=== PATIENT | male | born 1960 | race African-American/Black ===

== ENCOUNTER 2018-06-20 05:43 | Inpatient (IN) | payer OTHER ==
[2018-06-20] VITALS (30 sets, daily range): BP systolic 86–112; BP diastolic 48–79
[~2018-06-20] VITALS: Ht 182.9 cm; Wt 90.9 kg
--- NOTE | ~2018-06-20 | EKG ---
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 : 1960 Requested By: Latrice Dawn Order Number: [id number] MD: Measurements Intervals [place] Rate: 70 P: ID: QRS: 39 QRSD: 139 T: 133 QT: 401 QTc: 433 Interpretive Statements Atrial fibrillation IVCD, consider atypical RBBB Nonspecific T abnormalities, lateral leads Minimal ST elevation, inferior leads No previous ECG available for comparison [email or web address] ��������������������������������������������� ���������������������������������������� By: ��������������������������������������������� 9 9 Epiphany MD Candi /EPI
--- NOTE | ~2018-06-20 | HC ---
[facility] [place] [address] CONSULTATION Name: LUIS ARMANDO DAVIES Room #: 247-P ADM IN M.R.#: [id number] Admission: 06/20/18 ������������������ Attend Phys: Philip Wilson Discharge: ������������������ Date of : 60 Report #: [id number] THIS REPORT FOR: //name// CC: Philip Whtiaker PULMONARY CONSULTATION REFERRAL PHYSICIAN: Dr. Wilson. REASON FOR REFERRAL: Sepsis. HISTORY OF PRESENT ILLNESS: The patient is a 58-year-old -Israeli male who was brought to the ED from a shelter. He resides at a [facility], I believe, at [facility]. The patient is not verbal. Most of the history is obtained from the chart. The patient apparently has a history of CVA some time ago. He has been in a shelter. He has been rather sedentary. He was in his usual state of health until a day prior to presentation, the patient was found to be febrile, hypotensive and diaphoretic with abdominal distention. His temperature was around 100 degrees Fahrenheit. He was brought to the Emergency Room. In the ER, blood pressure was 86 mmHg systolic. The patient was subsequently admitted to the ICU with sepsis protocol. At this time, the patient appears to be somnolent, sleeping. He also has obvious obstructive apnea. He is arousable, but unable to give much history. PAST MEDICAL HISTORY: As mentioned above, including history of CVA, cognitive impairment, chronic kidney disease, debility and weakness. He appears to have chronic fatigue, hypersomnia being on armodafinil. Past medical history was incomplete at this time, without any prior records. PAST SURGICAL HISTORY: Unknown. MEDICATIONS: Reported medications include armodafinil, Lasix, mirtazapine, Singulair, potassium supplements, thiamine, Lipitor, bromocriptine, Coreg, Precedex, clonidine, Neurontin, Keppra and DuoNebs. FAMILY HISTORY: Unknown. ALLERGIES: None noted. [facility] [address] [place] [address] CONSULTATION Name: LUIS ARMANDO DAVIES Room #: [address] [place] [address] IN M.R.#: [id number] Admission: 06/20/18 ������������������ Attend Phys: Philip Wilson Discharge: ������������������ Date of : 60 Report #: [id number] SOCIAL HISTORY: He resides at a shelter. No prior history of tobacco or alcohol use. REVIEW OF SYSTEMS: Deferred as the patient is unable to give much history. PHYSICAL EXAMINATION: GENERAL: On exam, he is awake, appears somnolent, snoring and occasionally apneic spells. VITAL SIGNS: Temperature is 99 degrees Fahrenheit; it was at 100.5 degrees Fahrenheit. Pulse is 20; respiratory rate is 20; blood pressure has been as low as 79 mmHg systolic; currently is 90 mmHg systolic and saturation 97%. HEENT: Normocephalic, atraumatic. NECK: Supple, without any lymphadenopathy or thyromegaly. CHEST: Breath sounds are fair due to poor effort. CARDIOVASCULAR: Normal S1, S2. No murmurs or gallops. Pulses are decreased bilaterally. ABDOMEN: Soft, nontender. No organomegaly or masses felt. GENITOURINARY: Deferred. RECTAL: Deferred. EXTREMITIES: There is no edema, cyanosis or clubbing. NEUROLOGICAL EXAMINATION: Deferred, but baseline. The patient appears to mumble, but does not converse according to history. He also apparently has been bedridden for some time following his CVA. LABORATORY DATA: Portable chest x-ray shows mild increase in right lower lobe infiltrates, questionable small right-sided pleural effusion, mild increase in pulmonary vascular markings. Lactic acid is 1.3. Influenza A and B swab is negative. U/A was grossly unremarkable. EKG shows atrial flutter. KUB shows moderate stool in the colon. Procalcitonin level is 0.2. Electrolytes are normal. Liver enzymes unremarkable. WBC 17,500, hemoglobin 12.2 and platelets are normal. No evidence of bandemia. Arterial blood gas revealed pH of 7.40, pCO2 of 34 and pO2 of 74 on 4 liters of O2. IMPRESSION: 1. Severe sepsis with hypotension, febrile illness in this 58-year-old -Israeli male. He resides in a shelter. Source of infection at this time remains unclear, though need to consider possible pneumonia, aspiration, urinary tract infection, intra-abdominal source. 2. Acute hypoxic respiratory failure secondary to severe sepsis with hypotension, febrile illness. He also has apneic spells which may be related to sleep-related breathing disorder. This will need to be addressed later when the patient is stable and if able as an outpatient. 3. Apparent history of cerebrovascular accident with neurologic deficits. The patient apparently has been bedridden. 4. Incomplete history, but medication list suggests history of hypertension, heart failure, chronic hypersomnia, benign prostatic hypertrophy, questionable [facility] [address] [place] [address] CONSULTATION Name: LUIS ARMANDO DAVIES Room #: 247-P ADM IN M.R.#: [id number] Admission: 06/20/18 ������������������ Attend Phys: Philip Mao Inesjax Discharge: ������������������ Date of : 60 Report #: [id number] history of alcohol abuse and other neurologic disorders. Would recommend obtaining records for review and to verify. RECOMMENDATIONS: I agree with sepsis protocol, broad-spectrum antibiotics, vasopressors, IV fluids as necessary. DVT and GI prophylaxis recommended. Thank you for this consultation. ��������������������������������������������� ���������������������������������������� By: ��������������������������������������������� 1937 0227 Ash Malave MD /lee
[2018-06-20 06:05] LABS: ABSOLUTE NEUTROPHILS 14.7 thou/uL (1.4-8.2); BASOPHILS 0.5 % (0.0-2.0); EOSINOPHILS 0.1 % (0.0-3.0); HEMATOCRIT 36.3 % (42.0-52.0); HEMOGLOBIN 12.2 gm/dL (14.0-18.0); LYMPHOCYTES 8.2 % (24.0-44.0); MCH 27.9 pg (26.0-34.0); MCHC 33.5 g/dL (28.0-37.0); MCV 83.1 fL (80.0-100.0); PLATELET COUNT 291 thou/uL (150-400); POLYS 84.2 % (36.0-66.0); RBC 4.37 mil/uL (4.50-6.00); RDW 14.9 % (10.5-14.5); WBC 17.5 thou/uL (4.0-11.0)
[2018-06-20 06:14] LABS: ANION GAP 9 mmol/L (7-16); BUN 18 mg/dL (7-18); CALCIUM 9.1 mg/dL (8.5-10.1); CHLORIDE 102 mmol/L (98-107); CO2 29 mmol/L (21-32); CREATININE 0.9 mg/dL (0.7-1.3); GLUCOSE 141 mg/dL (74-106); POTASSIUM 4.4 mmol/L (3.5-5.1); SODIUM 140 mmol/L (136-145)
[2018-06-20 06:22] LABS: ALBUMIN 2.6 g/dL (3.4-5.0); SGOT 29 U/L (15-37); SGPT 34 U/L (30-65); TOTAL BILIRUBIN 0.6 mg/dL (<0.1-1.0); TOTAL PROTEIN 7.5 g/dL (6.4-8.2); TROPONIN-I <0.06 ng/mL (<0.06)
--- NOTE | 2018-06-20 07:24 | NUR ---
ERP UPDATED THAT PER TRIAGE NOTE PT HAD A DOSE OF TYLENOL QUALITY CONTROL TESTER. ATTEMPT X1 TO [facility] [phone] FOR LAST DOSE TIME, NO ANSWER AT THIS TIME.
[2018-06-20] MEDS ORDERED: ARMODAFINIL150 MG PER TUBE (08:13)
[2018-06-20] MEDS ORDERED: LASIX 20 MG TAB20 MG PER TUBE (08:13)
[2018-06-20] MEDS ORDERED: MIRTAZAPINE7.5 MG PER TUBE (08:14)
[2018-06-20] MEDS ORDERED: SINGULAIR 10 MG10 M1 PER TUBE ×2 (08:14→08:17)
[2018-06-20] MEDS ORDERED: ZOFRAN4 MG PER TUBE (08:14)
[2018-06-20] MEDS ORDERED: TERAZOSIN HCL5 MG PER TUBE (08:18)
[2018-06-20] MEDS ORDERED: CENTRUM MU9 MG/15 ML PER TUBE (08:18)
[2018-06-20] MEDS ORDERED: KLOR-CON 1010 MEQ PER TUBE (08:18)
[2018-06-20] MEDS ORDERED: VITAMIN B-1100 M1 PER TUBE (08:19)
[2018-06-20] MEDS ORDERED: LIPITOR 20 MG T20 M1 PER TUBE (08:19)
[2018-06-20] MEDS ORDERED: BROMOCRIPTINE2.5 M1 PER TUBE (08:20)
[2018-06-20] MEDS ORDERED: CARVEDILOL12.5 MG PER TUBE (08:20)
[2018-06-20] MEDS ORDERED: PERIDEX15 ML SWISH&SPIT (08:21)
[2018-06-20] MEDS ORDERED: CLONIDINE0.1 PER TUBE (08:22)
[2018-06-20] MEDS ORDERED: GABAPENTIN 100100 MG PER TUBE (08:22)
[2018-06-20] MEDS ORDERED: CARDIZEM60 MG PER TUBE (08:22)
[2018-06-20] MEDS ORDERED: KEPPRA 500 MG500 M1 PER TUBE (08:23)
[2018-06-20] MEDS ORDERED: TOPROL XL25 MG PER TUBE (08:23)
[2018-06-20] MEDS ORDERED: TYLENOL325 MG PER TUBE (08:24)
[2018-06-20] MEDS ORDERED: BISCOLAX10 MG RECTAL (08:24)
[2018-06-20] MEDS ORDERED: IPRAT-ALBUT 0.5-3 ML INH (08:25)
[2018-06-20 09:11] LABS: APTT 27.5 Seconds (24.5-32.8); FIBRINOGEN 318.5 mg/dL (210-360); INR 1.1; PROTIME 11.6 Seconds (9.3-11.4)
[2018-06-20 09:26] LABS: BE(vivo) -1.8 mmol/L (-2 to +3); HCO3 22.1 mmol/L (22.0-26.0); PCO2 34.9 mmHg (35.0-45.0); PO2 74.4 mmHg (80.0-100.0); sO2 95.3 % (92.0-98.0)
[2018-06-20 10:33] LABS: CALCIUM 8.2 mg/dL (8.5-10.1); CREATININE 0.8 mg/dL (0.7-1.3); POTASSIUM 3.5 mmol/L (3.5-5.1)
[2018-06-20 10:37] LABS: ALBUMIN 2.3 g/dL (3.4-5.0); TOTAL BILIRUBIN 0.5 mg/dL (<0.1-1.0); TOTAL PROTEIN 6.6 g/dL (6.4-8.2)
[2018-06-20 10:57] LABS: URINE BILIRUBIN NEGATIVE (Negative); URINE BLOOD NEGATIVE (Negative); URINE CLARITY CLEAR; URINE COLOR YELLOW; URINE GLUCOSE-RANDOM* NEGATIVE (Negative); URINE KETONES NEGATIVE (Negative); URINE LEUKOCYTES-REFLEX NEGATIVE (Negative); URINE NITRITE-REFLEX NEGATIVE (Negative); URINE PROTEIN (DIPSTICK) NEGATIVE (Negative); URINE SPECIFIC GRAVITY <= 1.005 (1.005-1.035)
--- NOTE | 2018-06-20 17:03 | EKG ---
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 : 1960 Requested By: Brock Dodd Order Number: [id number] MD: Kishan Joseph Measurements Intervals [place] Rate: 70 P: PA: QRS: 39 QRSD: 139 T: 133 QT: 401 QTc: 433 Interpretive Statements Atrial flutter Nonspecific T wave abnormality No previous ECG available for comparison Electronically Signed On 06-20-2018 17:03:36 CDT by Kishan Joseph [email or web address] ��������������������������������������������� <ELECTRONICALLY SIGNED> ���������������������������������������� By: Kishan Joseph MD, [facility] ��������������������������������������������� 06/20/18 1703 0620 9 Kishan Joseph MD, FACC /EPI
--- NOTE | 2018-06-20 17:20 | NUR ---
NOTIFIED TO PLACE A PICC FOR A PATIENT IN ICU. ORDER AND CONSENT NOTED. 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 THE RIGHT UPPER ARM BASILIC WAS WIDLEY PATENT. A #5F TRIPLE LUMEN POWER PICC WAS PLACED PER POLICY AFTER A BEDSIDE TIMEOUT WAS COMPLTETE. PICC WAS TRIMMED TO 46CM AND ADVANCED WITHOUT DIFFICULTY. PICC WAS EXTERNAL 5CM. A STAT CHEST XRAY WAS DONE STAT AND CONFIRMED BY THE RADIOLOGIST TO BE IN GOOD POSITION. LINE RELEASED FOR USE
--- NOTE | 2018-06-20 19:29 | NUR ---
ASSUMED CARE OF PT. UPON ARRIVAL FROM ED. PT. IS DROWSY AND CANNOT FULLY ANSWER QUESTIONS. LEFT SIDED WEAKNESS DUE TO HX OF CVAs. PT. STARTED ON CARDIZEM DRIP FOR CONTINUED AFIB/AFLUTTER PER PHYSICIAN ORDER. SEPSIS PROTOCOL CONTINUED, AND PICC LINE WAS INSERTED. PT. TOLERATED PROCEDURE. ALL ASSESSMENTS AND VITAL SIGNS CHARTED. ALL MEDICATION TITRATIONS CHARTED. PT. CONTINUES TO GRADUALLY BECOME LESS SLEEPY AND MORE AWARE. POC IS TO KEEP PT. HEMODYNAMICALLY STABLE AND MONITOR FOR WORSENING SIGNS OF SEPSIS. WILL CONTINUE TO MONITOR.
--- NOTE | 2018-06-20 20:48 | NUR ---
[facility] 14. FORGETFUL TO MILD CONFUSION. COGNITIVE DEFICIT R/T VERBAL COMMUNICATION. SLOW SPEECH, DIFFICULT TO UNDERSTAND AT TIMES. GENERALIZED WEAKNESS. LEFT SIDE WEAKER THAN RUGHT D/T PREVIOUS CVA. ALFUTTER. CARDIZEM GTT. LUNGS COARSE TO AUSCULATATION. 2L O2 PER NC. THIS IS THE PT'S O2 BASELINE. GARCIA TO DD. ADEQUATE URINE OUTPUT. NPO. MEDS PER PEG TUBE. VITAL SIGNS AND ASSESSMENTS DOCUMENTED. WILL CONTINUE TO MONITOR.
[2018-06-21] VITALS (30 sets, daily range): BP systolic 102–138; BP diastolic 68–85
[2018-06-21 04:55] LABS: CALCIUM 8.4 mg/dL (8.5-10.1); CREATININE 0.6 mg/dL (0.7-1.3); POTASSIUM 3.4 mmol/L (3.5-5.1)
[2018-06-21 04:57] LABS: ABSOLUTE NEUTROPHILS 10.5 thou/uL (1.4-8.2); BASOPHILS 0.4 % (0.0-2.0); EOSINOPHILS 0.7 % (0.0-3.0); HEMATOCRIT 35.3 % (42.0-52.0); HEMOGLOBIN 11.7 gm/dL (14.0-18.0); LYMPHOCYTES 20.1 % (24.0-44.0); MCH 27.8 pg (26.0-34.0); MCHC 33.1 g/dL (28.0-37.0); MONOCYTES 6.7 % (1.0-8.0); PLATELET COUNT 257 thou/uL (150-400); POLYS 72.1 % (36.0-66.0); RDW 15.4 % (10.5-14.5); WBC 14.6 thou/uL (4.0-11.0)
--- NOTE | 2018-06-21 08:54 | 2DMMODE ---
[facility] [address] [place] [address] 2 D/M-MODE ECHOCARDIOGRAM Name: LUIS ARMANDO DAVIES Room #: 247-P ADM IN M.R.#: [id number] ������������� Admission: 06/20/18 ������������� Attend Phys: Philip Chacon Discharge: ��� ������������� ��� Date of : 60 Date of Service: 06/21/18 0853 �� Report #: [id number] �������� ��������������������������������������������[id number] THIS REPORT FOR: //name// APPROVED REPORT Study performed: 06/21/2018 08:20:42 EXAM: Comprehensive 2D, Doppler, and color-flow Echocardiogram Patient Location: ICU Room #: [facility] Status: routine BSA: 2.16 HR: 85 bpm BP: 120/91 mmHg Rhythm: Atrial Flutter Other Information Study Quality: Technically Limited/No parasternal window. Indications Congestive Heart Failure Aflutter, Sepsis. 2D Dimensions RVDd: 41.34 mm IVSd: 14.24 (7-11mm) LVOT Diam: 20.94 (18-24mm) LVDd: 46.38 mm PWd: 11.62 (7-11mm) LVDs: 31.91 (25-40mm) Aortic Root: 35.28 mm Volumes Left Atrial Volume (Systole) Single Plane 4CH: 59.03 mL Single Plane 2CH: 49.21 mL LA ESV Index: 27.00 mL/m2 Aortic Valve AoV Peak Miles.: 1.41 m/s AO Peak Gr.: 7.96 mmHg LVOT Max P.01 mmHg LVOT Max V: 1.00 m/s NICOLE Vmax: 2.45 cm2 Mitral Valve MV Decel. Time: 120.34 ms [facility] [address] [place] [address] 2 D/M-MODE ECHOCARDIOGRAM Name: LUIS ARMANDO DAVIES Room #: 247-P [facility] IN ..#: [id number] ������������� Admission: 06/20/18 ������������� Attend Phys: Philip Chacon Discharge: ��� ������������� ��� Date of : 60 Date of Service: 06/21/18 0853 �� Report #: [id number] �������� ��������������������������������������������[id number] E Max Miles.: 1.07 m/s Pulmonary Valve PV Peak Miles.: 1.08 m/s PV Peak Gr.: 4.67 mmHg Tricuspid Valve TR Peak Miles.: 2.57 m/s RAP Estimate: 5.00 mmHg TR Peak Gr.: 26.34 mmHg PA Pressure: 31.00 mmHg Left Ventricle The left ventricle is normal size. There is normal LV segmental wall motion. Mild concentric left ventricular hypertrophy. Left ventricular systolic function is normal. LVEF is 60-65%. This study is not technically sufficient to allow evaluation of the LV diastolic function. Right Ventricle The right ventricle is normal size. The right ventricular systolic function is normal. Atria The left atrium size is normal. The right atrium size is normal. Aortic Valve Aortic valve leaflets are mildly thickened and calcified. Trace to mild aortic regurgitation. There is no aortic valvular stenosis. Mitral Valve The mitral valve is normal in structure. Mild mitral regurgitation. Tricuspid Valve The tricuspid valve is normal in structure. Mild tricuspid regurgitation. Estimated PAP is 30-35mmHg. Pulmonic Valve There is no pulmonic valvular regurgitation. Great Vessels The aortic root is normal in size. Ascending aorta is not well visualized. IVC is normal in size and collapses >50% with inspiration. [facility] [address] [place] [address] 2 D/M-MODE ECHOCARDIOGRAM Name: LUIS ARMANDO DAVIES Room #: [facility] IN M.R.#: [id number] ������������� Admission: 06/20/18 ������������� Attend Phys: Philip Chacon Discharge: ��� ������������� ��� Date of : 60 Date of Service: 06/21/18 0853 �� Report #: [id number] �������� ��������������������������������������������[id number] Pericardium There is no pericardial effusion. <Conclusion> Limited study Left ventricular systolic function is normal. There is normal LV segmental wall motion. LVEF 60-65%. Aortic valve leaflets are mildly thickened and calcified. Trace to mild aortic regurgitation. The mitral valve is normal in structure. Mild mitral regurgitation. Mild tricuspid regurgitation. Estimated pulmonary artery pressure of 30-35mmHg. There is no pericardial effusion. ��������������������������������������������� <ELECTRONICALLY SIGNED> ���������������������������������������� By: Kishan Joseph MD, [facility] ��������������������������������������������� 06/21/18 0853 0853 0853 Kishan Joseph MD, FACC /INF
--- NOTE | 2018-06-21 09:58 | NUR ---
Nutrition: If pt remains NPO rec enteral feedings of Glucerna 1.2 at 80 mL/hr x 24 hrs to meet needs.
--- NOTE | 2018-06-21 15:06 | HC ---
[facility] [place] [address] [address] [place] [address] CONSULTATION Name: LUIS ARMANDO DAVIES Room #: 247-P ADM IN M.R.#: [id number] Admission: 06/20/18 ������������������ Attend Phys: Philip Wilson Discharge: ������������������ Date of : 60 Report #: [id number] THIS REPORT FOR: //name// CC: Philip Renteriam Akkulugari DATE OF SERVICE: 06/20/2018 INFECTIOUS DISEASES CONSULTATION REASON FOR CONSULTATION: I was asked to evaluate concerning septic shock. HISTORY OF PRESENT ILLNESS: The patient is a 58-year-old [facility] resident at [facility] who presents with fever, hypotension, diaphoresis, abdominal distention. Details of his premorbid state prior to this hospitalization is not clear. I discussed with nurses at the bedside. There were no other family members in attendance. The patient was unable to give any details. He has had temperature up to 39 degrees. He has received 4 liters of IV fluids to get his blood pressure above 100 systolic. He is in atrial flutter, now with a rate of 120. He is being treated in the Intensive Care Unit now by Internal Medicine. He has had minimal cough or sputum production. No reported nausea, vomiting or diarrhea. His PEG tube is now to suction. He has had bilious colored fluid in the drain. He now has an indwelling Gibson catheter with reasonable urine output. He has had no rashes or decubiti. He has had a previous stroke with left-sided weakness. REVIEW OF SYSTEMS: A 10-point review of systems is negative other than what is described above. ALLERGIES: None known. MEDICATIONS: As noted on his MAR, which were reviewed. PAST MEDICAL HISTORY: Kidney failure, muscle weakness, cognitive defects following stroke, dysphagia with a PEG tube. FAMILY HISTORY: Noncontributory. SOCIAL HISTORY: Unclear if he smoked or drank much alcohol. Now a [facility] resident. REVIEW OF SYSTEMS: As noted above. PHYSICAL EXAMINATION: VITAL SIGNS: Early this morning, his temperature was 39.1, now afebrile; blood pressure 100/60; heart rate 120; O2 nasal cannula at 4 liters. [facility] [address] [place] [address] CONSULTATION Name: LUIS ARMANDO DAVIES Room #: 247-P [facility] IN M.R.#: [id number] Admission: 06/20/18 ������������������ Attend Phys: Philip Wilson Discharge: ������������������ Date of : 60 Report #: [id number] SKIN: With callus and eschar lesion to his left heel. No surrounding erythema or fluctuance. HEENT: Eyes are without scleral icterus. Pupils are equal, round and reactive to light. Mouth without mucositis. NECK: Supple. LUNGS: Crackles in the right base posteriorly. HEART: Regular, tachycardic. No appreciable murmur, gallop or rub. ABDOMEN: Mildly distended. His PEG site was without drainage. There is no fluctuance. No hepatosplenomegaly or mass appreciated. GENITOURINARY: External genitalia unremarkable with no lesion or mass, has an indwelling Gibson catheter. RECTAL: Not performed. EXTREMITIES: Without clubbing, cyanosis or edema. He did move all of his extremities. Cranial nerves are intact. He would arouse, but not verbal. LABORATORY DATA: Creatinine 0.8. Liver function tests normal. Bicarb at 28. Urinalysis unremarkable. Hemoglobin 12; platelet count 291,000; WBC 17.5. Lactate 1.8. Procalcitonin 0.25. Chest x-ray, right lower lobe infiltrate. Urinalysis was unremarkable. Influenza antigen negative. IMPRESSION: A 58-year-old [facility] resident, presents with septic shock, right lower lobe pulmonary infiltrate, leukocytosis, atrial flutter. No evidence of urinary tract infection. Aspiration, healthcare-associated pneumonia seems most likely. He does have abdominal distention, etiology of this is yet not clear, although his abdomen was mildly distended. It does not appear tender. Previous stroke, encephalopathy. RECOMMENDATION: We will continue with broad antibiotic coverage including vancomycin, Levaquin, Zosyn. Check sputum sample if possible. Await blood cultures. Check urine antigen, viral respiratory panel for ICU support. Cardiac treatments for atrial flutter. ��������������������������������������������� <ELECTRONICALLY SIGNED> ���������������������������������������� By: Dimitri Glynn MD ��������������������������������������������� 06/21/18 1506 1316 [id number] Dimitri Glynn MD /nt
--- NOTE | 2018-06-21 19:19 | NUR ---
ASSUMED CARE OF PT. AT 0700. PT. IS AWAKE AND FORGETFUL. PT. DENIES PAIN. ASSESSMENTS AND VITALS CHARTED. SPEECH EVALUATION COMPLETED TODAY, PT. STILL NPO. PT. REMAINS ON CARDIZEM AT 15 MG. PT. REMAINS HEMODYNAMICALLY STABLE AND READY TO TRANSFER OUT OF ICU PER PHYSICIAN ORDER. PT. TRANSFERRED OUT OF ICU AT 1630. ALL BELONGINGS TRANSFERRED WITH PT. AND REPORT WAS GIVEN TO LENA VIRAMONTES RN.
--- NOTE | 2018-06-21 19:24 | NUR ---
PT. FAMILY CONTACTED AT 1700 ABOUT TRANSFER OUT OF ICU TO CCU. ROSE MARIE (BROTHER) WAS ALSO UPDATED ON POC. INFORMATION ON HOW TO REACH PT. ON NEW UNIT GIVEN.
--- NOTE | 2018-06-21 19:36 | NUR ---
ASSUMED CARE OF PT AT 1645. PT WAS ALERT AND ABLE TO STATE NAME AND BIRTHDATE. PT SPEAKS WITH HESITATION AND MUMBLED. PT WEAK ON LEFT SIDE (DUE TO CVA). VITALS WNL AND PT AFLUTTER IN 80s ON 15MG/HOUR CARDIZEM DRIP. PT DOES NOT HAVE CARDIOLOGY CONSULT. PT HAS PEG TUBE BUT NOT TUBE FEEDING ORDERS AT THIS TIME. PT DENIED PAIN. MOUTH CARE AND FOOT CARE DONE. PT ON Q2 TURNS
--- NOTE | 2018-06-21 19:56 | NUR ---
19:48>called answering service of Dr Juanis Glynn 19:55>Dr Juanis Glynn called back. relayed Vanc trough result 10. Informed him that we are currently giving Vancomycin 1000 mg IVPB every 8 hours. He ordered to keep it the same.
[2018-06-22] VITALS (7 sets, daily range): BP systolic 125–150; BP diastolic 72–91
[2018-06-22 01:49] LABS: URINE BILIRUBIN NEGATIVE (Negative); URINE BLOOD 2+ (Negative); URINE CLARITY CLEAR; URINE COLOR YELLOW; URINE GLUCOSE-RANDOM* NEGATIVE (Negative); URINE KETONES 2+ (Negative); URINE LEUKOCYTES-REFLEX TRACE (Negative); URINE NITRITE-REFLEX NEGATIVE (Negative); URINE PROTEIN (DIPSTICK) NEGATIVE (Negative)
[2018-06-22 01:56] LABS: BACTERIA-REFLEX 1-9 Few /HPF (None Seen); CASTS None Seen /LPF (None Seen); CRYSTALS None Seen /LPF (None Seen); MUCUS 0-3 Light strn/LPF (None Seen); SQUAMOUS 0-3 Few /LPF (0-3); WBC CLUMPS Few (None Seen)
--- NOTE | 2018-06-22 02:02 | NUR ---
00:24>discussed with [employer] Hansa Lam about patient's diet that is still on NPO. I informed her that Im titrating down the Cardizem drip and the need for an overlap med so that the drip can be turned off. I also relayed to her the urine output trend, with orders given and carried out. Ff up POC.
[2018-06-22 03:21] LABS: CALCIUM 8.9 mg/dL (8.5-10.1); CREATININE 0.6 mg/dL (0.7-1.3); POTASSIUM 3.1 mmol/L (3.5-5.1)
[2018-06-22 04:13] LABS: ABSOLUTE NEUTROPHILS 7.8 thou/uL (1.4-8.2); BASOPHILS 0.4 % (0.0-2.0); EOSINOPHILS 1.4 % (0.0-3.0); HEMATOCRIT 36.8 % (42.0-52.0); HEMOGLOBIN 12.2 gm/dL (14.0-18.0); LYMPHOCYTES 25.7 % (24.0-44.0); MCH 27.9 pg (26.0-34.0); MCHC 33.3 g/dL (28.0-37.0); MCV 83.9 fL (80.0-100.0); MONOCYTES 6.3 % (1.0-8.0); PLATELET COUNT 304 thou/uL (150-400); POLYS 66.2 % (36.0-66.0); RBC 4.39 mil/uL (4.50-6.00); RDW 14.7 % (10.5-14.5); WBC 11.8 thou/uL (4.0-11.0)
--- NOTE | 2018-06-22 04:27 | NUR ---
04:27>relayed K RESULT TO LISSETT RICHARDSON. INFORMED HER ALSO OF THE RESULT OF NORMAL RESULT OF URINE SP GRAVITY. SHE SAID SHE WILL PUT AN ORDER FOR K REPLACEMENT.
--- NOTE | 2018-06-22 17:57 | NUR ---
ASSUMED CARE OF PT AT SHIFT CHANGE. ASSESSMENTS CHARTED. MEDS GIVEN PER JUN. PT ALERT AND ORIENTED TO SELF, PLACE. REORIENTED FREQUENTLY. NO APPARENT PAIN OR DISTRESS. O2 SATS WNL ON 2L O2, NO S/SX OF CARDIAC OR RESP DISTRESS NOTED. PT STARTED ON GLUCERNA TUBE FEEDINGS, GOAL RATE AT 80ML/HR. TOLERATING WELL. PT MORE DROWSY THAN USUALY AT APPROX 1400. PT BS 75, GIVEN 1/2 AMP. BS AT 95. WILL CONTINUE TO MONITOR BS. PT AWAKE RESTING IN BED, NO FURTHER NEEDS AT THIS TIME. WILL CONTINUE TO MONITOR AND FOLLOW POC.
--- NOTE | 2018-06-23 03:39 | NUR ---
ASSUMED PT CARE AT 1900. PT ALERT, ORIENTED TO SELF. VITAL SIGNS STABLE, ASSESSMENT CHARTED. NO COMPLAINTS OF PAIN/CHEST PAIN. PT ON 2L OF O2. FEEDING GOING AT 30ML/HR. TOLERATING APPROPRIATELY. LITTLE TO NO RESIDUAL. Q2HR TURNS COMPLETED. PT RESTED WELL THROUGH THE NIGHT. HOURLY ROUNDING. PROGRESSING TOWARD PLAN OF CARE. WILL CONTINUE TO MONITOR.
[2018-06-23 04:24] VITALS: BP 142/88
[2018-06-23 08:15] VITALS: BP 135/90
--- NOTE | 2018-06-23 11:32 | NUR ---
ASSUMED CARE OF PT AT 0700. VSS/AFEBRILE/AFLUTTER ON THE MONITOR. NO COMPLAINTS AT THIS TIME. PT RESTING IN BED WITH CALL LIGHT IN REACH. WILL CONTINUE TO MONITOR.
[2018-06-23 11:47] VITALS: BP 133/83
--- NOTE | 2018-06-23 12:40 | NUR ---
CM ASSESSMENT: CASE OPENED FOR DC PLANNING. CLINICAL INFO REVIEWED. PT ADMITTED WITH SEPSIS AND AFLUTTER WITH RVR. PT RESIDES IN LTC AR [facility] SINCE 12/16/17. HX STROKE WITH APHASIA AND LEFT WEAKNESS. MET WITH PT WHO IS ALERT AND ABLE TO COMMUNICATE TO YES/NO QUESTIONS. PT IS AGREEABLE TO RETURN TO [facility] [place]. SPOKE WITH ANNE IN ADMISSIONS ABOUT ADMISSION AND REQUESTED SHE FAX COPY OF DPOA DOCUMENT FOR [facility] CHART. SHE IS UNABLE TO TELL ME PRIOR LEVEL OF FUNCTION. CALLED FACILITY BUT UNABLE TO REACH STAFF. CALL TO PT'S BROTHER/DPOA ROSE MARIE DAVIES TO UPDATE-LEFT VM WITH CM CONTACT INFO. [facility] THERAPY EVAL ORDERED. AT PRESENT, DC PLAN RETURN TO CENTER SKILLED, THEN RETURN TO LTC.
[2018-06-23 16:20] VITALS: BP 170/101
--- NOTE | 2018-06-23 16:58 | NUR ---
FAXED CLINICAL UPDATE TO [facility] SPOKE WITH [place] IN ADM. SHE RECEIVED UPDATE. DCP TO FOLLOW.
--- NOTE | 2018-06-23 18:03 | NUR ---
PT'S BROTHER ROSE MARIE RETURNED CALL AND UPDATED ON REASON ADMITTED AND PRESENT CONDITION AND TREATMENT PLAN. ROSE MARIE IS DPOA AND WOULD LIKE TO FIND DIFFERENT LTC FOR PT. ROSE MARIE IN [place]. REVIEWED SNF/LTC IN AND PREOVIDED HIM WITH SEVERAL FACILITY NAMES AND ADDRESSES AND HE WILL LOOK AT [facility]IC[facility].GOV EXPLAINED TO ROSE MARIE MAY HAVE TO DC BACK TO CENTER IF UNABLE TO FIND ALTERNATE LTC BEFORE MEDICALLY STABLE TO DC. WILL SPEAK ROBYN GONZALEZ IN AM AND FAX REFERRALS.
[2018-06-23 20:15] VITALS: BP 152/113
[2018-06-24 04:45] VITALS: BP 154/96
[2018-06-24 04:45] LABS: HEMATOCRIT 38.5 % (42.0-52.0); HEMOGLOBIN 12.8 gm/dL (14.0-18.0); MCH 27.8 pg (26.0-34.0); MCHC 33.1 g/dL (28.0-37.0); MCV 83.8 fL (80.0-100.0); RBC 4.59 mil/uL (4.50-6.00); RDW 14.7 % (10.5-14.5); WBC 10.4 thou/uL (4.0-11.0)
[2018-06-24 04:51] LABS: ALBUMIN 2.6 g/dL (3.4-5.0); CALCIUM 8.9 mg/dL (8.5-10.1); CREATININE 0.6 mg/dL (0.7-1.3); PHOSPHORUS 2.9 mg/dL (2.5-4.9); POTASSIUM 3.4 mmol/L (3.5-5.1)
[2018-06-24 07:14] LABS: ADENOVIRUS Negative (Negative); INFLUENZA A Negative (Negative); INFLUENZA B Negative (Negative); METAPNEUMOVIRUS Negative (Negative); PARAINFLUENZA 1 Negative (Negative); PARAINFLUENZA 2 Negative (Negative); PARAINFLUENZA 3 Negative (Negative); RHINOVIRUS Negative (Negative); RSV A Negative (Negative); RSV B Negative (Negative)
--- NOTE | 2018-06-24 07:33 | NUR ---
ASSESSMENTS CHARTED. DR. ROMERO STOPPED BY AND INCREASED HIS COREG FROM 12.5 TO 25MG BID. TUBE FEED WAS STOPPED. WATER BOLUSES WERE GIVEN THREE TIMES. PATIENT HAD BOWEL MOVEMENT. REPOSIITIONED. DENIED PAIN.
[2018-06-24 08:06] VITALS: BP 135/99
[2018-06-24] MEDS ORDERED: CARVEDILOL25 MG PO (09:22)
[2018-06-24] MEDS ORDERED: AUGMENTIN 875-1 EACH PO (09:22)
[2018-06-24] MEDS ORDERED: DILTIAZEM HCL90 MG PER TUBE (09:22)
[2018-06-24] MEDS ORDERED: ELIQUIS5 MG PER TUBE (09:22)
[2018-06-24] MEDS ORDERED: ASPIR 8181 MG PO (09:23)
[2018-06-24 11:28] VITALS: BP 126/82
[2018-06-24 11:55] VITALS: BP 126/82
--- NOTE | 2018-06-24 13:43 | NUR ---
PT. DISCHARGING TODAY TO [facility]) FAXED DC ORDERS/SUMMARY TO FACILITY LEFT MSG WITH [place] ORDERS FAXED. TRANSPORTATION ARRANGED FOR 1500 [address]. FAMILY (DPOA) DARRING NOTIFIED BY SW OF DISCHARGE AND TIME OF TRANSPORT. UNIT NOTIFIED AND CHART COPY PER US. RN TO CALL REPORT TO [phone]
== END 2018-06-24 14:55 | DRG 871 ==
LOC: ER 05:43 → ICU 06:57 → EROBS 06:57 → ICU 09:09 → 2N 06-21 17:03
PROVIDERS: Nurse Practitioner Acute Care; Specialist; Student in an Organized Health Care Education/Training Program; ADMIT Hospitalist
PROC: 02HV33Z Insertion of Infusion Device into Superior Vena Cava, Percutaneous Approach (ICD-10-PCS; principal; 2018-06-20)
DX: A41.9 Sepsis, unspecified organism (principal); R65.21 Severe sepsis with septic shock; J18.9 Pneumonia, unspecified organism; J96.01 Acute respiratory failure with hypoxia; I48.92 Unspecified atrial flutter; I13.0 Hypertensive heart and chronic kidney disease with heart failure and stage 1 through stage 4 chronic kidney disease, or unspecified chronic kidney disease; G93.40 Encephalopathy, unspecified; I50.30 Unspecified diastolic (congestive) heart failure; M84.48XA Pathological fracture, other site, initial encounter for fracture; I69.354 Hemiplegia and hemiparesis following cerebral infarction affecting left non-dominant side; N18.9 Chronic kidney disease, unspecified; I95.9 Hypotension, unspecified; I48.91 Unspecified atrial fibrillation; R13.10 Dysphagia, unspecified; Z79.899 Other long term (current) drug therapy; Z93.1 Gastrostomy status; Z79.82 Long term (current) use of aspirin
CPT/HCPCS: 10078; 10081; 27000

== ENCOUNTER 2018-10-16 00:57 | Inpatient (IN) | payer OTHER ==
[2018-10-16] VITALS (7 sets, daily range): BP systolic 115–162; BP diastolic 82–110
[~2018-10-16] VITALS: Wt 88.0 kg
--- NOTE | ~2018-10-16 | P ---
[facility] [address] PROCEDURE REPORT Name: LUIS ARMANDO DAVIES Room #: 207-P [facility] IN M.R.#: [id number] Admission: 10/16/18 ������������������ Attend Phys: Jerry Pennington MD Discharge: 10/22/18 ������������������ Date of : 60 Report #: [id number] THIS REPORT FOR: //name// CC: Jerry Pennington Carlos A Julianne PREOPERATIVE DIAGNOSES: 1. Atrial fibrillation. 2. Atrial flutter. 3. Tachycardia-bradycardia syndrome. PROCEDURE PERFORMED: VVI pacemaker implantation. HISTORY: The patient is a 58-year-old male with history of multiple prior CVAs, also has a history of atrial fibrillation and atrial flutter who has left-sided hemiparesis and lives in a senior care facility. He is nonambulatory and minimally communicative. While recently hospitalized for anemia and undergoing GI evaluation, he was noted to have frequent episodes of atrial flutter with rapid ventricular response as well as periods of ventricular asystole with pauses anywhere between 5-10 seconds. He is here for VVI pacemaker implantation. ANESTHESIA: The patient underwent MAC anesthesia with no anesthesia related complications. DESCRIPTION OF PROCEDURE: The patient and the patient's power of document review attorney underwent informed consent, which was obtained via phone consent. We discussed the details of the procedure including the risks, which include, but not limited to bleeding, infection, vascular damage, cardiac perforation, pneumothorax. They understood these risks and is willing to proceed. The patient was brought to the EP laboratory in fasting and unsedated state, prepped and draped in a sterile fashion, underwent venography showing patency of left axillary vein and received IV antibiotics prior to initiation of the procedure. I injected lidocaine at the incision site. Incision was made. Pocket was created. Access was obtained once to the left axillary vein and sheath was positioned using the modified Seldinger technique. Under fluoroscopy, a lead was placed into the right ventricular apex with adequate pacing and sensing thresholds. This lead was sutured to the prepectoral fascia and connected to the device. The pocket was irrigated with vancomycin and the pocket was closed in 2 layers using 2-0 for the deep layer, 3-0 for the middle layer and surgical glue was placed to the outer skin layer. The patient awoke neurologically and hemodynamically intact. No complications and no significant bleeding. The implanted pacemaker was a [employer] model number 1272, serial number [id number], this is MRI-compatible pacemaker. The implanted lead was a [employer] [employer] [facility] [place] [place] [address] [place] [address] PROCEDURE REPORT Name: LUIS ARMANDO DAVIES Room #: 207-P [facility] IN M.R.#: [id number] Admission: 10/16/18 ������������������ Attend Phys: Jerry Pennington MD Discharge: 10/22/18 ������������������ Date of : 60 Report #: [id number] Medical model number [id number], 58 cm, serial number [id number]. This lead demonstrated R-wave of greater than 12 millivolts, pacing impedance of 640 ohms and the pacing threshold of 0.75 volts at 0.4 milliseconds. The device was programmed to the VVI 60-130 mode. CONCLUSIONS: 1. Successful implantation of an MRI-compatible VVI pacemaker. 2. Satisfactory ventricular pacing and sensing thresholds. ��������������������������������������������� ���������������������������������������� By: ��������������������������������������������� 1409 0347 Antony Hassan MD /nt
[~2018-10-16 00:57] MED LIST: ARMODAFINIL150 MG PER TUBE; ASPIR 8181 MG PO; AUGMENTIN 875-1 EACH PO; BISCOLAX10 MG RECTAL; BROMOCRIPTINE2.5 M1 PER TUBE; CARDIZEM60 MG PER TUBE; CARVEDILOL12.5 MG PER TUBE; CARVEDILOL25 MG PO; CENTRUM MU9 MG/15 ML PER TUBE; CLONIDINE0.1 PER TUBE; DILTIAZEM HCL90 MG PER TUBE; ELIQUIS5 MG PER TUBE; GABAPENTIN 100100 MG PER TUBE; IPRAT-ALBUT 0.5-3 ML INH; KEPPRA 500 MG500 M1 PER TUBE; KLOR-CON 1010 MEQ PER TUBE; LASIX 20 MG TAB20 MG PER TUBE; LIPITOR 20 MG T20 M1 PER TUBE; MIRTAZAPINE7.5 MG PER TUBE; PERIDEX15 ML SWISH&SPIT; SINGULAIR 10 MG10 M1 PER TUBE; TERAZOSIN HCL5 MG PER TUBE; TOPROL XL25 MG PER TUBE; TYLENOL325 MG PER TUBE; VITAMIN B-1100 M1 PER TUBE; ZOFRAN4 MG PER TUBE
[2018-10-16 01:21] LABS: ABSOLUTE NEUTROPHILS 12.5 thou/uL (1.4-8.2); BASOPHILS 0.2 % (0.0-2.0); EOSINOPHILS 0.1 % (0.0-3.0); HEMATOCRIT 50.7 % (42.0-52.0); HEMOGLOBIN 16.6 gm/dL (14.0-18.0); LYMPHOCYTES 8.6 % (24.0-44.0); MCH 28.6 pg (26.0-34.0); MCHC 32.7 g/dL (28.0-37.0); MCV 87.6 fL (80.0-100.0); MONOCYTES 6.7 % (1.0-8.0); PLATELET COUNT 260 thou/uL (150-400); POLYS 84.4 % (36.0-66.0); RDW 15.6 % (10.5-14.5); WBC 14.8 thou/uL (4.0-11.0)
[2018-10-16 01:41] LABS: CREATININE 1.3 mg/dL (0.7-1.3)
[2018-10-16 02:11] LABS: URINE BILIRUBIN NEGATIVE (Negative); URINE BLOOD TRACE (Negative); URINE CLARITY CLOUDY; URINE COLOR YELLOW; URINE GLUCOSE-RANDOM* NEGATIVE (Negative); URINE KETONES TRACE (Negative); URINE NITRITE-REFLEX NEGATIVE (Negative); URINE PROTEIN (DIPSTICK) 3+ (Negative); URINE SPECIFIC GRAVITY >= 1.030 (1.005-1.035)
[2018-10-16 02:23] LABS: URINE LEUKOCYTES-REFLEX 2+ (Negative)
[2018-10-16 02:24] LABS: SQUAMOUS None Seen /LPF (0-3)
[2018-10-16 02:25] LABS: BACTERIA-REFLEX >30 Many /HPF (None Seen); CASTS None Seen /LPF (None Seen); CRYSTALS None Seen /LPF (None Seen); MUCUS 4-6 Moderate strn/LPF (None Seen); URINE RBC 3-10 Few /HPF (0-2); URINE WBC-REFLEX >25 Many /HPF (0-5); WBC CLUMPS Many (None Seen)
[2018-10-16] MEDS ORDERED: LEXAPRO5 MG PO (03:08)
--- NOTE | 2018-10-16 06:39 | NUR ---
ADMISSION NOTE: ORIENTED TO PERSON AND PLACE. BASELINE ACCORDING TO NOTES INDICATE THAT HE IS AT HIS BASELINE ORIENTATION LEVEL. HE AWAKENS EASILY AND WILL ATTEMPT TO ANSWER QUESTIONS TO THE BEST OF HIS ABILITY. HE IS A VERY POOR HISTORIAN. CURRENTLY GETTING THE PROTONIX GTT ORDERED BY THE ED RIKI. AND THE IV POTASSIUM CONTINUES TO INFUSE. HE DENIES PAIN AND IS COOPERATIVE AND FRIENDLY. NO SKIN BREAKDOWN NOTED AT TIME OF ADMISSION.
--- NOTE | 2018-10-16 10:00 | EKG ---
[place] [address] 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: [email or web address] : 1960 Requested By: Reji Juarez Order Number: [id number] MD: Kishan Joseph Measurements Intervals [place] Rate: 86 P: [place]: QRS: 4 QRSD: 173 T: 233 QT: 420 QTc: 503 Interpretive Statements Atrial flutter with predominant 3:1 AV block Nonspecific T wave abnormality Compared to ECG 06/20/2018 06:20:53 No significant change was found Electronically Signed On 10-16-2018 10:00:10 CDT by Kishan Joseph [email or web address] ��������������������������������������������� <ELECTRONICALLY SIGNED> ���������������������������������������� By: Kishan Joseph MD, [facility] ��������������������������������������������� 10/16/18 1000 8 8 Kishan Joseph MD, [facility] /EPI
--- NOTE | 2018-10-16 16:16 | NUR ---
Assumed care at 0700 this AM. Patient was very drowsy most of morning into early this afternoon. Patient much more alert and awake this afternoon. Patient has some slow response, trouble forming sentences, and baseline left arm weakness from past stroke. Patient has complained of no pain or nausea all shift. Protonix gtt completed, fluids infusing per orders. Patient breathing well on 2LNC, no distress. Skin is intact but patient occassionally moist from incontinence. Patient stated he doesn't know when he is going to void. Male external cath failed today; patient soaked the bed with urine and dark brown, watery stool this afternoon; patient's body cleaned and bed changed. Fall precautions in place. Slow progress toward plan of care.
--- NOTE | 2018-10-16 18:46 | NUR ---
Dr. Marrero notified of patient's heart rate intermittently jumping up to the 130's but nonsustaining. Dr. Marrero told his heart rate has been 90's to low [address] Marrero also notified that 25 mg of coreg was administered at 1730 this evening, but still jumping up to [address] then coming back down[address] Dr. Marrero said he will look at the chart and put something in to hopefully resolve the issue. This RN will pass off this information [facility]. Will continue to monitor.
[2018-10-17 04:00] VITALS: BP 144/94
--- NOTE | 2018-10-17 05:28 | NUR ---
heart rates slowly increasing into the 130's. recieved order to restart his diltaizem 90 mg po achs, he takes this medciation at home.
[2018-10-17 05:36] LABS: ABSOLUTE NEUTROPHILS 3.8 thou/uL (1.4-8.2); BASOPHILS 0.3 % (0.0-2.0); EOSINOPHILS 3.1 % (0.0-3.0); HEMATOCRIT 40.7 % (42.0-52.0); LYMPHOCYTES 37.3 % (24.0-44.0); MCH 28.6 pg (26.0-34.0); MCHC 32.4 g/dL (28.0-37.0); MCV 88.3 fL (80.0-100.0); MONOCYTES 7.7 % (1.0-8.0); PLATELET COUNT 222 thou/uL (150-400); POLYS 51.6 % (36.0-66.0); RBC 4.61 mil/uL (4.50-6.00); RDW 15.6 % (10.5-14.5); WBC 7.4 thou/uL (4.0-11.0)
[2018-10-17 05:47] LABS: CREATININE 0.9 mg/dL (0.7-1.3); MAGNESIUM 1.7 mg/dL (1.8-2.4); POTASSIUM 3.5 mmol/L (3.5-5.1)
[2018-10-17 05:58] LABS: HEMOGLOBIN 13.2 gm/dL (14.0-18.0)
--- NOTE | 2018-10-17 07:45 | EKG ---
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: [email or web address] : 1960 Requested By: Reji Juarez Order Number: [id number] MD: Kishan Joseph Measurements Intervals [place] Rate: 86 P: [place]: QRS: 25 QRSD: 170 T: 173 QT: 413 QTc: 494 Interpretive Statements Atrial flutter with predominant 3:1 AV block Nonspecific T wave abnormality Compared to ECG 06/20/2018 06:20:53 No significant change was found Electronically Signed On 10-17-2018 7:45:36 CDT by Kishan Joseph [email or web address] ��������������������������������������������� <ELECTRONICALLY SIGNED> ���������������������������������������� By: Kishan Joseph MD, [facility] ��������������������������������������������� 10/17/18 0745 9 9 Kishan Joseph MD, [facility] /EPI
[2018-10-17 08:36] VITALS: BP 143/94
--- NOTE | 2018-10-17 10:21 | NUR ---
[employer]: faxed initial referral to [facility] for to (Hilary) fax [phone]. Patient from the facility LTC. [place] for dc possible few days or so. DP let Hilary/lissette at facility know of referral faxed over.
--- NOTE | 2018-10-17 12:27 | NUR ---
INITIAL ASSESSMENT: Received consult for discharge planning, as pt is a detention resident. KATHERINE reviewed chart and spoke with nursing and attending physician. Pt was admitted from [facility] due to UTI/GI bleed. Pt to have an EGD today per GI. Pt is on IV abx. Pt with hx of CVA with left sided weakness. SW met with pt at bedside. Pt is alert/orientated. Pt is able to answer questions. Pt's speech is slow at times. Pt states he does use a w/c at the facility. Pt confirms his plan to return to [facility] when medically stable. Pt gave SW permission to speak with his brother/DPOA, Geraldo, to provide update. SW spoke with Geraldo, via phone and confirms plan is for pt to return to [facility] when medically stable. senior media planner to fax clinical info to [facility] for review. KATHERINE is following to assist as needed with discharge planning.
[2018-10-17 18:57] LABS: ANION GAP 7 mmol/L (7-16); BUN 8 mg/dL (7-18); CALCIUM 8.6 mg/dL (8.5-10.1); CHLORIDE 107 mmol/L (98-107); CO2 29 mmol/L (21-32); CREATININE 0.8 mg/dL (0.7-1.3); GLUCOSE 107 mg/dL (74-106); POTASSIUM 3.4 mmol/L (3.5-5.1); SODIUM 143 mmol/L (136-145)
[2018-10-17 19:06] LABS: MAGNESIUM 1.8 mg/dL (1.8-2.4); TROPONIN-I <0.06 ng/mL (<0.06)
[2018-10-17 19:18] VITALS: BP 124/82
--- NOTE | 2018-10-17 19:21 | NUR ---
IT CORPORATE RECRUITER activated-see flowsheet
--- NOTE | 2018-10-17 19:51 | NUR ---
Patient went for EGD today and tolerated well. Patient oriented x2 to person/place (baseline) today. 0.45% NS w/ 20 KCL started today. Patient was on room air but came back on 2LNC from EGD. Patient ate 100% of meal tray at dinner after being NPO all day. Progressing toward plan of care. Patient started to have multiple long runs of VTACH starting approx. 5:58 pm this evening. Patient stated he doesn't feel anything wrong and feels fine. Rapid response team was called and Dr. Marrero notified. supervisor blood arrived and STAT EKG was done. Rapid response was cancelled as patient vitals were stable; Dr. Marrero ordered STAT BMP, mag and Troponin. K+ came back at 3.4 and Mag came back at 1.8. STAT EKG showed VTACH at start of the strip, but converted back to his baseline rhythm of aflutter. Dr. Marrero notified of the EKG results. No further orders given as Dr. Marrero stated he will wait for lab results to come back for now. Last set of vitals noted by this RN at 1838 were BP 123/80, HR 85, O2 sat 100% on 2LNC, and R 15. Telemetry strips and EKG placed in physical chart of VTACH runs. Oncoming awake overnight monitor nurse aware of the situation. Family friend notified at bedside after shift change who is his closest point of contact in the state.
--- NOTE | 2018-10-18 03:16 | NUR ---
ASSESSMENT: PT REMAIN ALERT AND ORIENT TIMES TWO,. STATED HIS NAME AND THAT HE WAS IN THE HOSPITAL. FAMILY MEMBER WAS AT THE BEDSIDE AT CHANGE OF SHIFT. VSS, AFEBRILE. PEG TUB CLAMPED AND INTACT. AFLUTTER PER MONITOR. LONG PAUSES AND SHORT RUNS OF V-TACH NOTED, DR. MATHEW IS AWARE OF. PT HAS A HX OF V-TACH, NO CARDIAC CONSULT REQUESTED. TOLERATING PO NECTAR THICK APPLE JUICE, INCONTINENT PER BLADDER, NO BM THIS SHIFT, SLOW PROGRESS TOWARDS DC GOALS, WILL CONTINUE TO MONITOR.
[2018-10-18 03:48] VITALS: BP 139/87
[2018-10-18 05:45] LABS: HEMATOCRIT 39.4 % (42.0-52.0); HEMOGLOBIN 13.1 gm/dL (14.0-18.0); MCH 29.2 pg (26.0-34.0); MCHC 33.2 g/dL (28.0-37.0); MCV 87.9 fL (80.0-100.0); RBC 4.48 mil/uL (4.50-6.00); RDW 15.2 % (10.5-14.5); WBC 10.3 thou/uL (4.0-11.0)
[2018-10-18 05:50] LABS: CALCIUM 8.6 mg/dL (8.5-10.1); CREATININE 0.6 mg/dL (0.7-1.3); MAGNESIUM 1.4 mg/dL (1.8-2.4); POTASSIUM 3.3 mmol/L (3.5-5.1)
[2018-10-18 07:56] VITALS: BP 136/88
--- NOTE | 2018-10-18 14:02 | NUR ---
KATHERINE reviewed chart and spoke with nursing and attending physician. Pt is s/p EGD due to GI bleed. Discharge back to [facility] is anticipated for tomorrow. KATHERINE updated Centers liaison and requests if pt will be using his skilled benefit when he returns. KATHERINE is following to assist as needed with discharge planning.
[2018-10-18 15:11] VITALS: BP 107/66
--- NOTE | 2018-10-18 15:58 | EKG ---
[address] [address] ELECTROCARDIOGRAM REPORT Name: LUIS ARMANDO DAVIES Room #: 360-P ADM IN M.R.#: [id number] ������������������ Admission: 10/16/18 ������������������ Attend Phys: Jerry Pennington MD Discharge: ������������������ Date of : 60 Report #: [id number] ����������������������������������������������������������������� [id number] THIS REPORT FOR: //name// [facility] Test Date: 2018-10-17 Test Time: 18:27:37 Pat Name: LUIS ARMANDO DAVIES Department: Room: 360 P Gender: M Bilingual Recruiter: Ghada PEPPER : 1960 Requested By: Toni Marrero Order Number: [id number] MD: Antony Hassan Measurements Intervals [place] Rate: 84 P: [place]: QRS: 51 QRSD: 154 T: 234 QT: 419 QTc: 496 Interpretive Statements Atrial flutter with prolonged AV block Compared to ECG 10/16/2018 07:39:13 Electronically Signed On 10-18-2018 15:58:30 CDT by Antony Hassan [email or web address] ��������������������������������������������� <ELECTRONICALLY SIGNED> ���������������������������������������� By: Antony Hassan MD ��������������������������������������������� 10/18/18 1558 26 26 Antony Hassan MD /SOL
--- NOTE | 2018-10-18 16:06 | PATH ---
[facility] [address] [place] [address] PATHOLOGY RPT PROCEDURE Name: MICK HERRON Room #: 360-P ADM IN M.R.#: [id number] ������������������ Admission: 10/16/18 ������������������ Date of : 60 Discharge: Report #: [id number] Path Case #: [id number] [facility] Accession Number: [id number] . 01 Material submitted: . stomach - BX OF GASTRITIS R/O H. PYLORI . 01 Clinical history: . Coffee ground emesis . 02 Diagnosis: Gastric mucosa, gastritis R/O H. pylori, endoscopic biopsy: - Mild reactive gastropathy. - Negative for intestinal metaplasia or atrophy. - Negative for Helicobacter pylori (properly controlled immunohistochemical stain performed. (IUV:darrel; 10/18/2018) QMS/10/18/2018 . 02 Electronically signed: . Yesenia Vaughan MD, Pathologist NPI- [id number] . 01 Gross description: . Received in formalin labeled "Mick Herron, BX of gastritis, rule out H. pylori," are 3 segments of simms soft tissue measuring 1.1 x 0.8 x 0.2 cm in aggregate dimensions and ranging from 0.4 to 0.5 cm in maximum dimension. The specimen is submitted entirely in cassette A1. (TSD; 10/17/2018) TOB/TOB . 02 Pathologist provided ICD-10: K31.9 . 02 CPT . 373074, X79505 Specimen Comment: A courtesy copy of this report has been sent to Specimen Comment: [phone], , . Specimen Comment: Report sent to ,DR ANDERSON / DR TOURE Performed at: [address], [place] [id number] MD [address] MD Phone: [phone] Performed at: [address] [id number] MD Yesenia Vaughan MD Phone: [phone]
--- NOTE | 2018-10-18 16:34 | P ---
[facility] [place] [address] PROCEDURE REPORT Name: LUIS ARMANDO DAVIES Room #: 360-[facility] IN M.R.#: [id number] Admission: 10/16/18 ������������������ Attend Phys: Jerry Pennington MD Discharge: ������������������ Date of : 60 Report #: [id number] THIS REPORT FOR: //name// CC: Jerry Whitaker MD DATE OF SERVICE: 10/17/2018 UPPER ENDOSCOPY REPORT BRIEF HISTORY: The patient is a 58-year-old male, resident of a nursing facility with multiple medical problems including prior CVA with an indwelling PEG tube with hematemesis. His hemoglobin since admission has dropped from 16 to 13 range. He has not demonstrated active GI bleeding at this institution. However, he had been on Eliquis and question remains to determine whether he can resume his Eliquis. PREOPERATIVE DIAGNOSIS: Hematemesis. POSTOPERATIVE DIAGNOSES: 1. Grade D erosive esophagitis. 2. Mild diffuse gastritis, nonhemorrhagic. 3. Pancreatic rest, duodenal bulb. MEDICATIONS: Deep sedation with propofol per anesthesia. SPECIMEN: Biopsies of gastritis. ESTIMATED BLOOD LOSS: 3 mL. PROCEDURE: EGD with biopsy. FINDINGS: Prior to propofol sedation, procedure of upper endoscopy discussed with the patient as well as potential risks and its complications. He indicates he understands and desires to proceed. DESCRIPTION OF PROCEDURE: With the patient in left lateral decubitus position, the Olympus video endoscope was inserted in the cervical esophagus under direct vision without difficulty. Examination of this organ through its length revealed normal esophageal mucosa into the distal esophagus. In the distal several centimeters of the esophagus, there were multiple erosive and ulcerative changes consistent with a severe grade D erosive esophagitis. There were no stigmata of bleeding. Active bleeding was not seen. There was no blood seen. The scope was advanced into the stomach, was examined on end view as well as retroflexed views. There was erythema throughout the stomach, but no ulcers or [facility] [address] [place] [address] PROCEDURE REPORT Name: TYLOR DAVIESNE Room #: [facility] IN M.R.#: [id number] Admission: 10/16/18 ������������������ Attend Phys: Jerry Pennington MD Discharge: ������������������ Date of : 60 Report #: [id number] erosions. Upon retroflexion, no mass lesions were seen. The bolster from the PEG tube was seen on the anterior aspect of the gastric body. The tube was pushed into the lumen and no ulcers were seen under the bolster. The pylorus was unremarkable. Examination of duodenal bulb revealed a small raised lesion of about 6-8 mm with central umbilicated area consistent with a pancreatic rest. The scope was advanced into the second portion of duodenum. The papilla was identified and noted to be unremarkable. At that point, scope was slowly withdrawn and careful circumferential views confirmed the above findings. The patient tolerated the procedure well. DISPOSITION: The patient with recent hematemesis. He had been on Eliquis. He has severe esophagitis which is likely the source of his hematemesis. I do not see stigmata of bleeding, so the likelihood of recurrent bleeding is low. He is on twice daily pantoprazole here, but I do not see that he was receiving pantoprazole prior to admission at this institution. I would anticipate he should have healing of the esophagitis with twice daily PPI for about 8 weeks. He will likely need long-term management with a PPI and probably would do well with once daily after healing of the esophagitis. It will be ideal to have him return in 2-3 months to reexamine the esophagus since he had severe esophagitis, so we could obtain a good view of the distal esophagus. ��������������������������������������������� <ELECTRONICALLY SIGNED> ���������������������������������������� By: David Wadsworth MD ��������������������������������������������� 10/18/18 1634 1415 0154 David Wadsworth MD /nt
[2018-10-18 19:33] VITALS: BP 151/99
[2018-10-19 03:23] VITALS: BP 148/108
[2018-10-19 07:22] VITALS: BP 148/95
[2018-10-19] MEDS ORDERED: KEFLEX500 M1 PER TUBE (09:26)
[2018-10-19] MEDS ORDERED: PROTONIX40 M1 PO (09:31)
--- NOTE | 2018-10-19 10:10 | NUR ---
Patient will discharge today to [facility], cc ordered, dc papers faxed to center. DP contacted Hilary at [facility], now awaiting transportation time, wc van, no oxygen. DP to follow up.
--- NOTE | 2018-10-19 10:50 | NUR ---
DISCHARGE NOTE: SW reviewed chart and spoke with nursing. Pt is medically stable for discharge back to [facility] SN[facility] today. Pt to be transported via stretcher van. conservation planner to coordinate and notify family. No additional SW needs identified at this time, but is available to assist should needs arise.
[2018-10-19 15:25] VITALS: BP 122/87
[2018-10-19 19:29] VITALS: BP 145/103
--- NOTE | 2018-10-19 20:44 | NUR ---
Received awake on bed. On room air. A+Ox2, pt oreiented to self. With history of stroke- with left sided weakness. On blood sugar monitoring. No episodes of nausea and vomiting noted the whole shift. Pt on mechanically altered ground diet, nectar thick fluids- pt helped with meal set up but able to eat independently. Pt with PEG tube- clamped- as per report received from night staff, tube has not been used since pt was admitted in [place]. Pt incontinent of B/B- on condom cath- draining well; output measured and recorded accordingly. Pt turned every 2 hours. With SL at R AC- flushing well. No bleeding episodes noted the whole shift, pt did not open his bowels today. Pt with A.Flutter(chronic) with episodes of V tach and pauses for a couple of days already as per night staff's report, has been aware according to her. Pt seen by Dr Marsh this AM- to be d/c to SNF today- CM informed. Pt seen by Cardiology, with episodes of Vtach at [address] Ulloa was at telemetry reviewing pt's previous strips- Dr aware about today's episodes. also saw strips from 15 and 16th. Pt seen by LISSETT Mena, medications reviewed and discontinued; possible pacemaker but no date or schedule specified yet; As per Dr Marsh- to cancel discharge today- he called pt's JEFF Chow to update re: status and plans. Pt seen by LISSETT Jin today re: PEG tube. To weigh pt, do caloric count. To verify re: tube feed orders since on orders list it was cancelled but still on nursing interventions list- night staff informed; With orders to do H20 flushes 150ml every 6 hours- unable to start right after order was put in d/t POC, was about to do flushing for 1899- night staff will do flushing. Pt seen by PT today; able to sit out on chair. To keep monitoring patient.
[2018-10-20 04:00] VITALS: BP 126/95
--- NOTE | 2018-10-20 05:26 | NUR ---
Pt. has been repositioned for comfort. Bed alarm on for safety. A flutter with controlled rate. No episodes of pauses during the night. External cath remains intact. Peg tube clamped and flushed with water per order. Will continue to monitor.
[2018-10-20 05:29] LABS: HEMATOCRIT 43.3 % (42.0-52.0); HEMOGLOBIN 14.2 gm/dL (14.0-18.0)
[2018-10-20 07:55] VITALS: BP 155/94
[2018-10-20 12:05] LABS: ABSOLUTE NEUTROPHILS 4.4 thou/uL (1.4-8.2); BASOPHILS 0.8 % (0.0-2.0); EOSINOPHILS 2.8 % (0.0-3.0); HEMATOCRIT 43.6 % (42.0-52.0); HEMOGLOBIN 14.2 gm/dL (14.0-18.0); LYMPHOCYTES 32.4 % (24.0-44.0); MCH 28.4 pg (26.0-34.0); MCHC 32.6 g/dL (28.0-37.0); MCV 87.2 fL (80.0-100.0); MONOCYTES 7.8 % (1.0-8.0); PLATELET COUNT 229 thou/uL (150-400); POLYS 56.2 % (36.0-66.0); RDW 14.8 % (10.5-14.5); WBC 7.7 thou/uL (4.0-11.0)
[2018-10-20 12:17] LABS: ALBUMIN 3.2 g/dL (3.4-5.0); CALCIUM 9.2 mg/dL (8.5-10.1); CREATININE 0.8 mg/dL (0.7-1.3); POTASSIUM 3.1 mmol/L (3.5-5.1); TOTAL BILIRUBIN 0.6 mg/dL (<0.1-1.0); TOTAL PROTEIN 7.7 g/dL (6.4-8.2)
[2018-10-20 16:46] VITALS: BP 152/108
[2018-10-20 19:55] VITALS: BP 144/106
[2018-10-20 23:45] VITALS: BP 154/105
[2018-10-21] VITALS (7 sets, daily range): BP systolic 144–156; BP diastolic 98–119
--- NOTE | 2018-10-21 05:14 | NUR ---
Pt. awake till after 0100 watching TV the once he fell asleep he slept well. He has been repositioned. Elevated BP reported to JOB COST ESTIMATOR and order received.A fib/ flutter swith controlled rate , no pauses though this am he has intermittent tachycardia in the 120's but not sustained otherwise HR in the 80's to 90's. Tolerating room air well. Afebrile. Bed alarm on for safety. Left sided weakness from previous CVA. Kept NPO for pacemaker placement today. Hibiclens scrub/bath given at HS and again this am. Incontinent of bladder , placed external male cath. SCD's on. Will continue to monitor.
--- NOTE | 2018-10-21 06:15 | NUR ---
Dr. Kwok notified of HR in the 110's to 130's intermittentlyand also high BP this am. Pt. is asymptomatic and sound asleep. No new order at this time. Will continue to monitor.
--- NOTE | 2018-10-21 10:25 | NUR ---
Pt eating adequately, discontinue calorie count.
--- NOTE | 2018-10-21 11:47 | NUR ---
DISCHARGE PLANNING. ANTICIPATED DISCHARGE OVER THE WEEKEND. CALL PLACED TO [facility] LIAISON. [facility] STATES THEY ARE ABLE TO ACCEPT PATIENT BACK TO [facility] OVER THE WEEKEND ONCE DISCHARGE ORDERS ARE COMPLETED. UNIT SW NOTIFIED. [facility] CONTACT NUMBER FOR DISCHARGE AND TRANSPORTATION NEEDS [phone] [facility] CONTACT NUMBER [phone] FAX NUMBER [phone].
--- NOTE | 2018-10-21 13:17 | NUR ---
pt's assessment has done, pt is A& OX2 ( person and place),but pt is forgetful, pt's vs are stable , pt has started NPO since last midlight for pacemaker placement, pt denies pain . pt was going to [facility] for new pacemaker at 1300pm.
--- NOTE | 2018-10-21 13:36 | NUR ---
pt will go to CCU bed 207 after pt has new pacemaker placement, RN has giving report to CCU RN.
--- NOTE | 2018-10-21 16:58 | NUR ---
PT TO THE UNIT POST PACEMAKER PLACEMENT. ASSESSMENT CHARTED. NO CO'S OF PAIN OR NAUSEA. PT AWAKE AND STATES NO PAIN - SHOULDER IMMOBILIZER INSITU. PT AFLUTTER ON THE U4SIZAG. FAMILY AT THE BEDSIDE. NO CO'S AT THE PRESENT TIME.
[2018-10-22] VITALS: BP 154/105
[2018-10-22 00:45] VITALS: BP 154/105
[2018-10-22 04:07] VITALS: BP 147/96
--- NOTE | 2018-10-22 04:13 | NUR ---
RECEIVED PT'S CARE AT 1920; PT. ON BED; ALERT; AWAKE; DURING ASSESSMENT PT. ALERT TO PERSON & TIME; C/O PAIN OVER L. KNEE; PRN PAIN MEDICATION GIVEN; DURING RE-ASSESSMENT PT. ST. DECREASE PAIN; MEDICATION GIVEN; NO HEMATOMA OVER INCISION; DRY; CLEAN; HEART RYTHM AFLUT; TURN Q2H; ABLE TO REST THROUGH THE NIGHT WITH EYES CLOSED; ASSESSMENT CHARGED; FOLLOWING POC; MONITORING; WILL PASS ON REPORT.
[2018-10-22 07:50] VITALS: BP 144/88
[2018-10-22] MEDS ORDERED: PROTONIX40 M1 PO (11:16)
[2018-10-22 11:55] VITALS: BP 112/68
[2018-10-22 12:37] VITALS: BP 144/88
--- NOTE | 2018-10-22 16:02 | NUR ---
ASSESSMENT CHARTED - MEDS PER JUN - NO CO'S OF PAIN OR NAUSEA. LEFT SHOULDER IMMOBILIZER INSITU A REMINDER THAT PATIENT TO NOT LEFT ARM ABOVE HEAD. MADHURI DIET AND FLUIDS. PT TRANSFERED TO REHAB THIS AFTERNOON. REPORT CALLED TO FACILITY - PT LEFT UNIT VIA AMBULANCE. FAMILY/SIG OTHER IS FOLLOWING PATIENT OVER THERE. NO CO'S AT TIME OF D/C.M
== END 2018-10-22 16:10 | DRG 981 ==
LOC: ER 00:57 → 2N 03:40 → 3W 03:40 → EROBS 03:40 → 3W 04:26 → 2N 10-21 14:12
PROVIDERS: Emergency Medicine; Internal Medicine; Internal Medicine Gastroenterology; Nurse Practitioner; ADMIT Internal Medicine
DX: K22.11 Ulcer of esophagus with bleeding (principal); G92 Toxic encephalopathy; J18.1 Lobar pneumonia, unspecified organism; N39.0 Urinary tract infection, site not specified; J96.11 Chronic respiratory failure with hypoxia; E87.0 Hyperosmolality and hypernatremia; I69.354 Hemiplegia and hemiparesis following cerebral infarction affecting left non-dominant side; I48.3 Typical atrial flutter; K29.71 Gastritis, unspecified, with bleeding; I13.10 Hypertensive heart and chronic kidney disease without heart failure, with stage 1 through stage 4 chronic kidney disease, or unspecified chronic kidney disease; I49.5 Sick sinus syndrome; I44.39 Other atrioventricular block; R41.0 Disorientation, unspecified; E87.6 Hypokalemia; E78.5 Hyperlipidemia, unspecified; I48.2 Chronic atrial fibrillation; B96.20 Unspecified Escherichia coli [E. coli] as the cause of diseases classified elsewhere; N18.9 Chronic kidney disease, unspecified; D64.9 Anemia, unspecified; F03.90 Unspecified dementia, unspecified severity, without behavioral disturbance, psychotic disturbance, mood disturbance, and anxiety; B96.1 Klebsiella pneumoniae [K. pneumoniae] as the cause of diseases classified elsewhere; Z79.01 Long term (current) use of anticoagulants; Z79.82 Long term (current) use of aspirin; Z79.899 Other long term (current) drug therapy
CPT/HCPCS: 10081; 10879; 62110; 62900; 70005

== ENCOUNTER 2018-11-20 08:35 | Inpatient (IN) | payer OTHER ==
[~2018-11-20] VITALS: Ht 182.9 cm; Wt 102.5 kg
[~2018-11-20 08:35] MED LIST changes: +KEFLEX500 M1 PER TUBE; +LEXAPRO5 MG PO; +PROTONIX40 M1 PO
[2018-11-20 08:36] VITALS: BP 105/64
[2018-11-20 09:12] LABS: ABSOLUTE NEUTROPHILS 7.8 thou/uL (1.4-8.2); BASOPHILS 0.5 % (0.0-2.0); HEMATOCRIT 35.7 % (42.0-52.0); HEMOGLOBIN 11.9 gm/dL (14.0-18.0); LYMPHOCYTES 15.1 % (24.0-44.0); MCH 28.5 pg (26.0-34.0); MCHC 33.5 g/dL (28.0-37.0); MCV 85.1 fL (80.0-100.0); MONOCYTES 9.3 % (1.0-8.0); PLATELET COUNT 197 thou/uL (150-400); POLYS 74.1 % (36.0-66.0); RBC 4.19 mil/uL (4.50-6.00); RDW 14.3 % (10.5-14.5); WBC 10.6 thou/uL (4.0-11.0)
[2018-11-20 09:21] LABS: ANION GAP 8 mmol/L (7-16); BUN 13 mg/dL (7-18); CALCIUM 9.4 mg/dL (8.5-10.1); CHLORIDE 101 mmol/L (98-107); CO2 29 mmol/L (21-32); GLUCOSE 91 mg/dL (74-106); POTASSIUM 3.2 mmol/L (3.5-5.1); SODIUM 138 mmol/L (136-145)
[2018-11-20 09:31] LABS: ALBUMIN 2.7 g/dL (3.4-5.0); DIRECT BILIRUBIN 0.3 mg/dL (<0.1-0.3); SGOT 31 U/L (15-37); SGPT 41 U/L (30-65); TOTAL BILIRUBIN 0.6 mg/dL (<0.1-1.0); TOTAL PROTEIN 7.6 g/dL (6.4-8.2); TROPONIN-I <0.06 ng/mL (<0.06)
[2018-11-20] MEDS ORDERED: ELIQUIS5 MG PO (09:46)
--- NOTE | 2018-11-20 10:58 | EKG ---
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: : 1960 Requested By: Emily Gunderson Order Number: [id number] MD: Kishan Joseph Measurements Intervals [place] Rate: 107 P: 241 MN: 199 QRS: 14 QRSD: 150 T: -90 QT: 383 QTc: 511 Interpretive Statements Atrial flutter with variable AV conduction Nonspecific T wave abnormality Compared to ECG 10/17/2018 18:27:37 No significant change was found Electronically Signed On 11-20-2018 10:58:42 CDT by Kishan Joseph [email or web address] <ELECTRONICALLY SIGNED> By: Kishan Joseph MD, [facility] 11/20/18 1058 0840 0840 Kishan Joseph MD, FACC /EPI
[2018-11-20 10:59] VITALS: BP 128/81
[2018-11-20 16:00] VITALS: BP 147/95
--- NOTE | 2018-11-20 19:58 | NUR ---
ASSUMED CARE OF PATIENT AT 1600 FROM ER. ADMISSION COMPLETE. ASSESSMENT CHARTED. PATIENT IS ALERT TO SELF AND MOANS SOME INCOMPREHENSIBLE WORDS. HE DENIES BEING IN ANY PAIN. MEDS GIVEN PER PEG TUBE. PATIENT IS NPO. IV ABX DELIVERED. CALL LIGHT WITHIN REACH. CALLED FACILITY FOR MED LIST TO BE FAXED TO THE UNIT. PATIENT TO CONTINUE WITH POC.
[2018-11-20 20:12] VITALS: BP 149/82
[2018-11-21 04:54] LABS: BASOPHILS 0.4 % (0.0-2.0); EOSINOPHILS 0.2 % (0.0-3.0); HEMATOCRIT 33.2 % (42.0-52.0); HEMOGLOBIN 10.8 gm/dL (14.0-18.0); LYMPHOCYTES 11.3 % (24.0-44.0); MCH 28.2 pg (26.0-34.0); MCHC 32.5 g/dL (28.0-37.0); MCV 86.9 fL (80.0-100.0); MONOCYTES 9.6 % (1.0-8.0); PLATELET COUNT 206 thou/uL (150-400); POLYS 78.5 % (36.0-66.0); RBC 3.82 mil/uL (4.50-6.00); RDW 14.7 % (10.5-14.5)
[2018-11-21 05:07] LABS: CALCIUM 8.2 mg/dL (8.5-10.1); CREATININE 0.8 mg/dL (0.7-1.3); POTASSIUM 3.5 mmol/L (3.5-5.1)
[2018-11-21 05:41] VITALS: BP 116/71
[2018-11-21 07:15] VITALS: BP 123/74
--- NOTE | 2018-11-21 07:53 | NUR ---
ALERT.CONFUSED.MOANS.SLURRED SPEECH NOTED.TURN Q2 HOURS.PULLED HIS OTHER IV OUT.TRIES TO TAKE OFF HIS OXYGEN TOO AND DESATS.PT ON O2 4L NC.LAB CALLED FOR GRAM POSITIVE COCCI.NURSE PRACTITIONER WAS CALLED.NO NEW ORDERS.PT IS ON VANCOMYCIN AND ZOSYN.MONITOR SHOWS AFIB.PEG TUBE INTACT.LEFT PACER INCISION SITE COVERED WITH GAUZE. WILL MONITOR AND CONTINUE POC.
--- NOTE | 2018-11-21 10:37 | NUR ---
Patient admits from [facility] with LE swelling and bleeding from sx site, rec pacemaker in October. Patient resident of [facility]. Sp with brother Lew who is DPOA and lives in [place]. He reports he needs code to discuss patients care. [facility] family member present and can rec code at that time. he lives out of town and administration reports can give code over phone. Updated Rn. Plan to update [facility]. brother reports they never called him to alert patient transferring to hospital. patient currently in doppler procedure.
--- NOTE | 2018-11-21 10:45 | NUR ---
FAXED CLINICAL UPDATE SPOKE WITH TINO AT [facility] SHE RECEIVED UPDATE. SHE IS GOING TO F/U WITH BROTHER REGARDING NOT BEING NOTIFIED WHEN PT CAME TO THE ER. DCP TO FOLLOW.
[2018-11-21 11:10] VITALS: BP 134/90
--- NOTE | 2018-11-21 11:28 | NUR ---
WOUND CONSULT; A LEFT BUTTOCKS WOUND WAS IDENTIFIED, S/S SUGGESTIVE OF FRICTION SHEARING. MACERATED PERIWOUND, NO S/S OF INFECTION. RECOMMENDATION; APPLY ZGUARD DAILY/PRN RN PRESENT
--- NOTE | 2018-11-21 11:34 | NUR ---
WOUND CONSULT; SCROTUM ASSESSED TODAY. A SMALL AREA OF FRICTION SHEARING IDENTIFIED. MACERATED W/ NO S/S OF INFECTION. RECOMMENDATIONS; WOUND CARE TO: GENTLY CLEANSE WITH WOUND CLEANSER OR NORMAL SALINE, APPLY ZGUARD DAILY/PRN
[2018-11-21 15:10] VITALS: BP 128/76
--- NOTE | 2018-11-21 16:28 | NUR ---
PT CARE ASSUMED APPROX 0700. PT ALERT AND ORIENTED TO SELF ONLY. CONFUSED AND HAS SLURRED SPPECH WITH RESPONSE DELAY. THIS IS NOTED TO BE PT BASELINE. FAMILY REPROTS THERE IS POTENTIAL FOR SOME OF THIS TO BE DELIRIUM. PT BC +. ID CONSULTED. VSS. DENIES PAIN AND SOA DESPITE FREQUENT MOANING. TURNING PT Q2 HRS AND PRN. NOTED LEFT SIDED WEAKNESS FROM PAST CVA. PT TOLERATING IV ABT. CONDOM CATH PLACED FOR I&O. PT TOLERATING DIURESIS. PT RUE IV INFILTRATED THIS SHIFT. REPLACED WITH RIGHT FOREARM PIV AND ANOTHER PIV PLACED TO RIGHT HAND D/T VANCO AND EXTENDED FUSION PIPERCILLIN BEING INCOMPATIBLE. LUE DOPPLER + FOR OCCLUSIVE THROMBUS. LOVENOX STARTED, APIXABAN ON HOLD. FAMILY GIVEN CLINICAL UPDATE PRIOR TO CLOT BEING DISCOVERED. FAMILY DENIES QUESTIONS OR CONCERNS REGARDING POC AFTER CLINICAL UPDATE GIVEN. NO DISTRESS NOTED.
--- NOTE | 2018-11-21 19:12 | NUR ---
VASCULAR ACCESS NURSE CONSULTED FOR A PICC- PATIENT HAS A LEFT SIDED PACEMAKER AND LEFT SIDED AXILLARY OCCLUSIVE THROMBUS. HIS LAST PICC LINE WAS NOTED TO BE PLACED ON THE RIGHT BASILIC VEIN ON 06/20 BY OUR VAT. RECOMMEND CENTRAL LINE PLACEMENT TO AVOID ADDITIONAL THROMBUS TO RIGHT ARM. WE ARE CURRENTLY AWAITING DPOA TO RETURN CALL FOR CONSENT.
[2018-11-21 19:35] VITALS: BP 98/57
[2018-11-22] VITALS (8 sets, daily range): BP systolic 112–138; BP diastolic 71–88
[2018-11-22 02:00] LABS: ABSOLUTE NEUTROPHILS 9.3 thou/uL (1.4-8.2); BASOPHILS 0.7 % (0.0-2.0); EOSINOPHILS 1.8 % (0.0-3.0); HEMATOCRIT 35.1 % (42.0-52.0); HEMOGLOBIN 11.6 gm/dL (14.0-18.0); LYMPHOCYTES 17.5 % (24.0-44.0); MCH 28.3 pg (26.0-34.0); MCHC 33.1 g/dL (28.0-37.0); MCV 85.6 fL (80.0-100.0); MONOCYTES 10.2 % (1.0-8.0); PLATELET COUNT 247 thou/uL (150-400); POLYS 69.8 % (36.0-66.0); RDW 14.5 % (10.5-14.5); WBC 13.3 thou/uL (4.0-11.0)
[2018-11-22 02:04] LABS: CALCIUM 8.6 mg/dL (8.5-10.1); CREATININE 0.6 mg/dL (0.7-1.3); POTASSIUM 3.1 mmol/L (3.5-5.1)
--- NOTE | 2018-11-22 04:22 | NUR ---
ASSESSMENT CHARTED. VSS. PT ALERT TO SELF AT TIMES. 4 L NC. Q2 TURNS. MEDS PER PEG TUBE. GARCIA IN PLACE. VERBAL PHONE CONSENT FOR CENTRAL CATH THIS AM PER DPOA. RYLAN MURRY PHLEBOTOMY DIRECTOR NOTIFIED, ORDERS RECIEVED. WILL CONTINUE TO MONITOR AND WITH POC.
--- NOTE | 2018-11-22 09:19 | 2DMMODE ---
[facility] [address] [place] [address] 2 D/M-MODE ECHOCARDIOGRAM Name: LUIS ARMANDO DAVIES Room #: 202-P ADM IN .R.#: [id number] Admission: 11/20/18 Attend Phys: Stephan Marsh MD Discharge: Date of : 60 Date of Service: 11/22/18 0918 Report #: [id number] THIS REPORT FOR: //name// APPROVED REPORT Study performed: 11/22/2018 07:58:57 EXAM: Comprehensive 2D, Doppler, and color-flow Echocardiogram Patient Location: Bedside Room #: 202 Status: routine BSA: 2.22 HR: 104 bpm BP: 112/79 mmHg Rhythm: Atrial Flutter Other Information Study Quality: Technically DifficultTechnically Limited Indications Pacemaker Hypertension/HDD Bacteremia 2D Dimensions IVC: 20.00 mm Aortic Valve AoV Peak Miles.: 1.46 m/s AO Peak Gr.: 11.41 mmHg Tricuspid Valve TR Peak Miles.: 2.96 m/s TR Peak Gr.: 35.01 mmHg PA Pressure: 45.00 mmHg Left Ventricle The left ventricle is normal size. There is normal LV segmental wall motion. Mild concentric left ventricular hypertrophy. The left ventricular systolic function is normal. The left ventricular ejection fraction is within the normal range. LVEF is 60-65%. This study is not technically sufficient to allow evaluation of the LV diastolic function. [facility] [address] [place] [address] 2 D/M-MODE ECHOCARDIOGRAM Name: LUIS ARMANDO DAVIES Room #: 202-P ADM IN M.R.#: [id number] Admission: 11/20/18 Attend Phys: Stephan Marsh MD Discharge: Date of : 60 Date of Service: 11/22/18 0918 Report #: [id number] Right Ventricle The right ventricle is normal size. The right ventricular systolic function is normal. Pacemaker lead is present in the right ventricle. Atria The left atrium size is normal. Right atrium is dilated. Pacemaker lead is present in the right atrium. Aortic Valve Aortic valve is not well visualized. Possible vegetation Trace aortic regurgitation. There is no aortic valvular stenosis. Mitral Valve The mitral valve is normal in structure. There is no mitral valve regurgitation No evidence of mitral valve stenosis. Tricuspid Valve The tricuspid valve is normal in structure. There is trace to mild tricuspid regurgitation. Estimated PAP 45 mmHg. There is moderate pulmonary hypertension. Cannot exclude tricuspid valve vegetation. Pulmonic Valve The pulmonary valve is normal in structure. Great Vessels The aortic root is normal in size. IVC is dilated and collapses >50% with inspiration. Pericardium There is no pericardial effusion. Critical Notification Critical Value: Yes Physician Notified Date: 11/22/2018 <Conclusion> The left ventricular systolic function is normal. There is normal LV segmental wall motion. LVEF is 60-65%. Pacemaker lead is present in the right ventricle. Aortic valve is not well visualized. Possible vegetation Trace aortic regurgitation, no stenosis. The mitral valve is normal in structure. No mitral valve regurgitation [facility] [address] [place] [address] 2 D/M-MODE ECHOCARDIOGRAM Name: LUIS ARMANDO DAVIES Room #: 202-P ADM IN M.R.#: [id number] Admission: 11/20/18 Attend Phys: Stephan Marsh MD Discharge: Date of : 60 Date of Service: 11/22/18917 Report #: [id number] There is trace to mild tricuspid regurgitation. Estimated pulmonary artery pressure of 45 mmHg. There is no pericardial effusion. <ELECTRONICALLY SIGNED> By: Kishan Joseph MD, FACC 11/22/18917 7 7 Kishan Joseph MD, FACC /INF
--- NOTE | 2018-11-22 15:04 | NUR ---
VASCULAR ACCESS TEAM, discussed with Amber SAWYER, pt is very high risk for DVT due to present clot in left arm. Pt has pacemeker on left that maybe removed so this limits pt's access for central lines,jugulars,. Will continue to monitor pt's PIV access for antibiotics
--- NOTE | 2018-11-22 15:43 | HC ---
[facility] [place] [address] CONSULTATION Name: LUIS ARMANDO DAVIES Room #: 202-P [facility] IN M.R.#: [id number] Admission: 11/20/18 Attend Phys: Stephan Marsh MD Discharge: Date of : 60 Report #: [id number] THIS REPORT FOR: //name// CC: Stephan Strauss Akkulugari DATE OF SERVICE: 11/21/2018 INFECTIOUS DISEASE CONSULTATION REASON FOR CONSULTATION: I was asked to evaluate concerning bacteremia. HISTORY OF PRESENT ILLNESS: The patient is a 58-year-old with previous stroke with left hemiparesis, atrial fibrillation and flutter history. He had tachybrady syndrome with greater than [address] A [employer] Lj VVI pacemaker was placed on 10/21/[address] Hassan. He lives in a custodial. In addition, during that hospital stay, he had evidence of GI bleeding and erosive gastritis. He was on Eliquis, which was placed on hold. Also diagnosed with Klebsiella urinary tract infection, pneumonia in addition to his previous stroke, dementia and renal insufficiency. He was rehospitalized on 11/20/2018 with shortness of breath, hypoxia. He has had low-grade fever, leukocytosis. Blood cultures were obtained now showing gram-positive cocci from both samples. He had a chest x-ray and CT scan, which showed evidence of pleural effusions and congestive heart failure. CT scan also showed evidence of thickening in the region of the left pacemaker and left neck supraclavicular region along the leads. The patient denies any chest pain. He has had no syncopal episodes. Denies any headache. There has been no other new neurologic issues. Appetite has been poor. No abdominal pain or diarrhea. Reasonable urine output. ALLERGIES: None known. MEDICATIONS: As noted on his MAR including vancomycin and Zosyn. PAST MEDICAL HISTORY: Coronary artery disease, chronic kidney disease, dementia, dysphagia, permanent pacemaker, PEG tube. FAMILY HISTORY: Noncontributory. SOCIAL HISTORY: [facility] resident, nonsmoker and no alcohol use currently. REVIEW OF SYSTEMS: The patient was unable to give any further details. PHYSICAL EXAMINATION: VITAL SIGNS: He is afebrile, hemodynamically stable. GENERAL: He is alert and cooperative, pleasant. He had a dense left [facility] [address] [place] [address] CONSULTATION Name: LUIS ARMANDO DAVIES Room #: 202-P [facility] IN M.R.#: [id number] Admission: 11/20/18 Attend Phys: Stephan Marsh MD Discharge: Date of : 60 Report #: [id number] hemiparesis face, arm and leg. EYES: Without scleral icterus. MOUTH: Without mucositis. NECK: Supple. LUNGS: Clear anteriorly with decreased breath sounds in the bases bilaterally. HEART: Regular; without appreciable murmur, gallop or rub. CHEST: Left chest permanent pacemaker site had some crusting and eschar. There was mild tenderness to the area. Initially, he had a significant amount of drainage. This has ceased. No tenderness in the axilla. ABDOMEN: Soft and nontender, with no hepatosplenomegaly or mass. GENITOURINARY: External genitalia without mass or lesion, with an external catheter in place. SPINE: Nontender. No CVA tenderness. RECTAL: Not performed. EXTREMITIES: Without clubbing, cyanosis. He had 1+ lower extremity edema. NEUROLOGIC: Mood was normal. He was aphasic. LABORATORY STUDIES: Ultrasound of left upper extremity showed evidence of occlusive left axillary vein thrombus. Blood cultures from 11/20/2018 showing gram-positive cocci from both cultures obtained. Chest x-ray: Minor pulmonary congestion, basilar atelectasis and effusions. Creatinine 0.8. Hemoglobin 10.8, WBC 14, platelet 206,000. CT of the chest as noted above. IMPRESSION: A 58 year old with recent permanent pacemaker, now one month out from placement with Gram-positive cocci bacteremia, low-grade fever, leukocytosis. I am suspecting surgical site infection. Previous stroke with left hemiparesis, atrial fibrillation, sick sinus syndrome, erosive gastritis, previous gastrointestinal bleed, dementia, chronic renal insufficiency, hypertension, hyperlipidemia, stroke. RECOMMENDATIONS: We will continue broad antibiotic coverage pending final culture results. Repeat blood cultures today. Have Cardiology reevaluate the pacemaker. Anticipate explantation. Adjust his antibiotics pending final culture results. <ELECTRONICALLY SIGNED> By: Dimitri Glynn MD 11/22/18 1543 1805 0044 Dimitri Glynn MD /nt
--- NOTE | 2018-11-22 18:41 | NUR ---
PATIENT CARE ASSUMED, ASSESSMENT CHARTED, VSS, ALERT AND ORIENTED X 1, PEG TUBE INTACT, SWALLOW STUDY COMPLETED, DIET IS MECHANICAL SOFT AND PATIENT ABLE TO FEED HIMSELF WITH LEFT HAND, NO ISSUES SWALLOWING. CALL TO DR. AUGUSTIN TO REPORT GRAM POSITIVE BLOOD CULTURE. CONDOM CATHETER PATENT TO DD, NO COMPLAINTS OF PAIN, WILL CONTINUE TO MONITIOR.
[2018-11-23] VITALS (8 sets, daily range): BP systolic 117–137; BP diastolic 80–98
--- NOTE | 2018-11-23 03:45 | NUR ---
ASSESSMENT CHARTED. AFIB/FLUTTER. PT ALERT TO SELF, MORE TALKATIVE TONIGHT VS PREVIOUS NIGHT. Q2 TURNS. CONDOM CATH IN PLACE. INCONTINENT OF BOWEL. MECH SOFT DIET TOLERATING. MEDS PER PEG TUBE. WILL CONTINUET TO MONITOR AND WITH POC.
[2018-11-23 06:30] LABS: CALCIUM 8.6 mg/dL (8.5-10.1); CREATININE 0.5 mg/dL (0.7-1.3); POTASSIUM 4.1 mmol/L (3.5-5.1)
--- NOTE | 2018-11-23 09:21 | TEE ---
[facility] [address] [address] TRANSESOPHAGEAL ECHOCARDIOGRAM Name: LUIS ARMANDO DAVIES Room #: 202-P ADM IN M.R.#: [id number] Admission: 11/20/18 Attend Phys: Stephan Marsh MD Discharge: Date of : 60 Date of Service: 11/23/18 0921 Report #: [id number] THIS REPORT FOR: //name// APPROVED REPORT Study performed: 11/23/2018 08:25:39 EXAM: Comprehensive 2D, Doppler, and color-flow Echocardiogram Patient Location: CV holding Room #: 9 Status: routine BSA: 2.22 HR: 105 bpm Rhythm: Atrial Flutter Other Information Study Quality: Excellent Indications CVA/TIA ICD, Bacteremia Echo Enhancing Agent Indication: Rule out Shunt Agent(s) / Amount(s) Used: Agitated Saline 7 cc Procedure After obtaining informed consent, patient underwent transesophageal echo in the [employer]. Type of Sedation : Conscious Sedation Sedation was administered by Marlin SAWYER. Sedation was achieved intravenously with: Versed (3 mg) Fentanyl (150 mcg) Transesophageal probe was inserted and advanced into esophagus without difficulty by Kishan Joseph MD. Echo enhancement indication: R/O Septal defect. Echo enhancement agent administered: Agitated Saline The SHE was performed without complications. Throughout the procedure, the blood pressure, pulse oximetry, cardiac rhythm, and rate were monitored. The patient tolerated the procedure without adverse effects. Recovery from conscious sedation was uneventful and vital signs were stable. [facility] [address] [place] [address] TRANSESOPHAGEAL ECHOCARDIOGRAM Name: LUIS ARMANDO DAVIES Room #: 202-P ADM IN M.R.#: [id number] Admission: 11/20/18 Attend Phys: Stephan Marsh MD Discharge: Date of : 60 Date of Service: 11/23/18 0921 Report #: [id number] Left Ventricle The left ventricle is normal size. There is normal LV segmental wall motion. Mild concentric left ventricular hypertrophy. The left ventricular systolic function is normal. The left ventricular ejection fraction is within the normal range. LVEF is 55-60%. Right Ventricle The right ventricle is normal size. The right ventricular systolic function is normal. Pacemaker lead is present in the right ventricle. Atria Left atrium is dilated. No thrombus is visualized in the left atrium or appendage. No shunting by contrast bubble injection Right atrium is dilated. Pacemaker lead is present in the right atrium. Aortic Valve The aortic valve is normal in structure. Trace aortic regurgitation. There is no aortic valvular stenosis. Mitral Valve The mitral valve is normal in structure. Trace mitral regurgitation. No evidence of mitral valve stenosis. Tricuspid Valve The tricuspid valve is normal in structure. Trace to mild tricuspid regurgitation. Pulmonic Valve The pulmonary valve is normal in structure. There is no pulmonic valvular regurgitation. Great Vessels The aortic root is normal in size. IVC is normal in size and collapses >50% with inspiration. Pericardium There is no pericardial effusion. <Conclusion> The left ventricular systolic function is normal. There is normal LV segmental wall motion. LVEF is 55-60%. Both atria are dilated, right greater than left. Pacemaker lead is present in the right atrium. No shunting by contrast bubble injection [facility] [address] [place] [address] TRANSESOPHAGEAL ECHOCARDIOGRAM Name: LUIS ARMANDO DAVIES Room #: 202-P ADM IN M.R.#: [id number] Admission: 11/20/18 Attend Phys: Stephan Marsh MD Discharge: Date of : 60 Date of Service: 11/23/18920 Report #: [id number] The aortic valve is normal in structure. Trace aortic regurgitation, no stenosis. The mitral valve is normal in structure. Trace mitral regurgitation. There is no pericardial effusion. No vegetations <ELECTRONICALLY SIGNED> By: Kishan Joseph MD, FACC 11/23/18920 0 0 iKshan Joseph MD, FACC /INF
--- NOTE | 2018-11-23 09:26 | NUR ---
PT OFF THE UNIT FIRST THING THIS MORNING FOR SHE. CONSENT WAS RECEIVED FROM BROTHER GUIDO DPOA VIA TELEPHONE CONFIRMED BY TWO RNS. MEDS AND ASSESSMENT WILL BE COMPLETED WHEN PT RETURNS.
--- NOTE | 2018-11-23 09:58 | NUR ---
WOUND CARE FOLLOW UP; THE SCROTUM WOUND IS HEALED. RECOMMENDATIONS; 1- CONTINUE TO APPLY ZGUARD UNTIL DISCHARGE. 2-WOUND CARE WILL SIGN OFF/ RECONSULT IF NEEDED. DISCUSSED WITH RN
--- NOTE | 2018-11-23 10:03 | NUR ---
PT RETURNED FROM SHE. PT STILL DROWSY. TELE REAPPLIED AND FREQUENT VITALS SET UP. PT PLACED BACK ON 4L NC TO KEEP SPO2 AT 93% VSS. WILL CONTINUE TO MONITOR.
--- NOTE | 2018-11-23 15:08 | NUR ---
PACEMAKER REMOVAL THURS, PATIENT WITH ENDOCARDITIS MAY NEED LTAC PRIOR TO [facility].
--- NOTE | 2018-11-23 15:44 | NUR ---
NEW CONDOM CATH WAS PLACED BY THIS RN AT 1400. THE PREVIOUS ONE CAME OFF DURING SHE THIS MORNING
[2018-11-24] VITALS (7 sets, daily range): BP systolic 108–150; BP diastolic 80–104
--- NOTE | 2018-11-24 03:44 | NUR ---
PT HR ELEVATED IN BETWEEN 115 TO 120s AT HS ARBUBBA AYALA NOTIFIED ORDER OBTAINED FOR CARDIZEM 3ML IVP, HR DROPPED TO AROUND 110. APPROX 0330HRS COOK SHIP NOTIFIED PT'S HR BACK UP AGAIN BETWEEN 120 - 130, ORDER OBTAINED FOR CARDIZEM DRIP AT THIS TIME. AWAITING PHARMACY AT THIS TIME. PT CONTINUES ON AFIB/AFLUTTER
--- NOTE | 2018-11-24 04:47 | NUR ---
cardizem gtt increased to 10mg/hr at this time
[2018-11-24 06:06] LABS: HEMATOCRIT 37.9 % (42.0-52.0); HEMOGLOBIN 12.6 gm/dL (14.0-18.0); MCH 28.5 pg (26.0-34.0); MCHC 33.2 g/dL (28.0-37.0); MCV 85.9 fL (80.0-100.0); RBC 4.41 mil/uL (4.50-6.00); RDW 14.2 % (10.5-14.5); WBC 9.4 thou/uL (4.0-11.0)
--- NOTE | 2018-11-24 06:09 | NUR ---
PT ORIENTED TO SELF ONLY. ABLE TO ANSWER TO SOME BASIC QUESTIONS. DENIES PAIN. PT ON AFIB/AFLUTTER TACHY HE 120s CARDIZEM GTT RUNNING AT THIS TIME INCREASED TO 15MG/HR. INCONT OF B&B. PT HAS A PEG TUBE FLUSH ONLY. PT HAS BEEN NPO SINCE MIDNIGHT PACEMAKER REMOVAL THIS MORNING. ACHS. Q2H TURN REPOSITION.
[2018-11-24 06:18] LABS: CALCIUM 9.4 mg/dL (8.5-10.1); CREATININE 0.7 mg/dL (0.7-1.3); POTASSIUM 3.3 mmol/L (3.5-5.1)
--- NOTE | 2018-11-24 14:43 | NUR ---
PT BROUGHT TO CV HOLDING BY RN FOR PROCEDURE.
--- NOTE | 2018-11-24 16:05 | NUR ---
Update given to the [facility] liason. They can provide IV vanco if needed at [place]. She is checking to see if he has any skilled medicare days left. Pt had pacer removed today. Cultures pending per ID. Will follow.
--- NOTE | 2018-11-24 16:30 | NUR ---
PT CARE ASSUMED APPROX 0700. PT ALERT AND ORIENTED X1 TO SELF ONLY. CONFUSED WITH CONVERSATION ALSO. PT FOLLOWING 1 STEP COMMANDS. DENIES PAIN AND SOA. BS WNL. HR ELEVATED BUT CONTROLLED WITH CARD GTT AT MAX. CV SHIPPING RECEIVING MANAGER AWARE. VS OTHERWISE STABLE. TURNING Q2 HRS AND PRN. EXTERNAL CATHETER PLACED. IV ABT REMAIN TO POC. PT TOLERATING POC WELL. INITIATED ISOLATION THIS SHIFT SINCE BLOOD CULTURES GREW MRSA. ID DR AWARE. NO CHANGES TO POC. PT WENT TO SURGERY FOR PPM EXTRACTION. OFF FLOOR AT THIS TIME. NO DISTRESS NOTED THIS SHIFT. FAMILY (LM) CALLED AND PROVIDED PT PASSCODE AND RECEIVED CLINICAL UPDATE. SHE DENIED QUESTIONS OR CONCERNS REGARDING POC AFTER UPDATE. WILL F/U WITH POST SURGERY PROTOCOL WHEN PT RETURNS.
--- NOTE | 2018-11-24 16:32 | NUR ---
FAXED CLINICAL UPDATE TO [facility] SPOKE WITH TINO IN ADM SHE RECEIVED UPDATE AND THAT WE ANTICIPATE DC FRI/SAT. THEY WILL BE ABLE TO ACCEPT PT BACK WITH IV ABX THEY CAN DO VANCOMYCIN AT FACILITY. DCP TO FOLLOW.
--- NOTE | 2018-11-24 18:08 | NUR ---
PT RETURNED FROM EP LAB POST PPM REMOVAL WITHOUT ISSUES. LEFT CHEST REMOVAL SITE COVERED WITH DRY DSG. INTACT. WOUND CARE TO PLACE VAC IN AM. DEPT AWARE. PT TO GET DINNER TRAY AT THIS TIME. POST PROCEDURE VSS. MEDS GIVEN. ISOLATION MAINTAINED. NO DISTRESS NOTED.
[2018-11-25 04:13] VITALS: BP 167/107
--- NOTE | 2018-11-25 05:37 | NUR ---
PT A&O X1 ORIENTED TO SELF ONLY HX OF DEMENTIA. INCONT OF B&B CONDOM CATHETER IN PLACE. CONTINUES ON CONTACT ISO FOR MRSA. LEFT SIDE WEAKNESS D/T PREVIOUS CVA. PACEMAKER EXTRACTION SITE DRESSING CDI NO EVIDENCE OF BLEEDING. PT CONTINUES AFIB/AFLUTTER HR RATE 115-120 HR WRAPPER LEAF INSPECTOR NOTIFIED NO NEW ORDERS PER CARDIOLOGY NOT TO AGGRESSIVELY TREAT ELEVATED HR. CONTINUING TO MONITOR
[2018-11-25 06:29] VITALS: BP 128/66
[2018-11-25 09:51] VITALS: BP 136/98
[2018-11-25 12:20] VITALS: BP 119/87
--- NOTE | 2018-11-25 13:36 | NUR ---
WOUND CARE F/U; FOLLOWING UP TODAY FOR A WOUND VAC PLACEMENT S/P PACEMAKER REMOVAL. THE WOUND BED IS BEEFY RED, SEROUS DRAINAGE NOTED. NO C/O PAIN. APPLIED VAC W/O DIFFICULTY. VAC THERAPY TO CONTINUE AND THE DRESSING CHANGED M/W/F DISCUSSED WITH SILVERIO
--- NOTE | 2018-11-25 15:09 | NUR ---
Update provided to Center admissions liailda Richard. They can accept the pt back under his skilled medicare benefits for iv atb/ wound vac care. Dc anticipated 1-2 days pending his blood cultures. He will need approx 4 weeks of iv atb. Pt anxious to return to his facility. Message left for his yelena/mandi Chow to contact unit or cm regarding pt's dc back to facility soon. Clinical updated faxed to admissions as well per the dc assistant media planner. Should the pt be dc ready this weekend: call Lilo at [phone] to arrange his return to the [facility]. They will need report, chart copy and orders faxed. They will arrange for stretcher van with o2. please call pt's brother to confirm his dc.
--- NOTE | 2018-11-25 15:49 | P ---
[facility] [place] [address] PROCEDURE REPORT Name: LUIS ARMANDO DAVIES Room #: 202-P [facility] IN M.R.#: [id number] Admission: 11/20/18 Attend Phys: Stephan Marsh MD Discharge: Date of : 60 Report #: [id number] THIS REPORT FOR: //name// CC: Stephan Whitaker PREOPERATIVE DIAGNOSIS: Pacemaker infection. POSTOPERATIVE DIAGNOSIS: Pacemaker infection. HISTORY: The patient is a 58-year-old jail patient recently who also has a history of AFib, aflutter with RVR, recently noted to have periods of ventricular bradycardia with prolonged pauses. He underwent a VVI pacemaker implantation and recently presented with fevers, chills and positive blood cultures. He is here for pacemaker removal. Of note while having a pacemaker placed, his ventricular pacing is less than 1% and he has had no pacing on telemetry. We have decreased his rate control medications and there have been no prolonged pauses noted. ANESTHESIA: The patient underwent MAC anesthesia with no anesthesia related complications. DESCRIPTION OF PROCEDURE: The patient underwent informed consent. We discussed with the patient's family who is power of credit support counselor underwent informed consent. We discussed the details of the procedure including the risks, which include but not limited to bleeding, infection and cardiac perforation. He understood these risks and were willing to proceed. The patient was brought to the EP laboratory in fasting and sedated state, prepped and draped in a sterile fashion, received IV antibiotics. Next, I injected lidocaine at the incision site. Incision was opened. There was some blood noted in the pocket. I removed the device from the pocket. The lead was disconnected from the pacemaker. A stylet was placed down the lead and the lead screw was retracted. The lead was pulled with no issues. The pocket was irrigated with vancomycin and the pocket was left open. I placed a large gauze into the pocket and Tegaderm dressing was placed. There were no procedural complications. There was no significant bleeding. CONCLUSION: Successful removal of pacemaker. RECOMMENDATIONS: 1. We will have wound care to see the patient to place a wound VAC. 2. We will decrease the patient's rate control medications to avoid need for reimplantation of a pacemaker given that the patient is probably high risk for recurrent pacemaker infections. [facility] [address] [place] [address] PROCEDURE REPORT Name: LUIS ARMANDO DAVIES Room #: 202-P [facility] IN .R.#: [id number] Admission: 11/20/18 Attend Phys: Stephan Marsh MD Discharge: Date of : 60 Report #: [id number] 3. If repeat placement of pacemaker is required, we will consider implantation of a leadless pacemaker. <ELECTRONICALLY SIGNED> By: Antony Hassan MD 11/25/18 1549 1642 58 Antony Hassan MD /nt
--- NOTE | 2018-11-25 17:01 | NUR ---
PT AWAKE AND CONFUSED TODAY. DENIES PAIN. TURNED Q2H IN BED. WOUND CARE CONSULT PLACED AND EQUIPMENT OPERATOR HERE FOR PLACEMENT OF WOUND VAC. REMAINS IN A-FIB/A-FLUTTER WITH RATE 110-130'S. SPOKE WITH PT'S BROTHER/DPOA AND UPDATED HIM. WILL CONTINUE TO MONITOR PATIENT.
[2018-11-25 17:27] VITALS: BP 140/96
[2018-11-25 21:07] VITALS: BP 129/85
[2018-11-26 04:00] VITALS: BP 134/97
--- NOTE | 2018-11-26 04:04 | NUR ---
ASSUMED CARE FROM DAY SHIFT PT C/O GENERALIZED PAIN MORHINE IV GIVEN PT REPOSITION FOR CONFOR , WOUND VAC INACT , EXTERNAL CATHETER PLACE DUE TO PT INCONTINENT OF URINE, TECHNICAL SPECIALIST CYTOLOGY SHOWS AFLUUTER 120-130 BP STABLE. RESTING WELL THROUGHOUT HOURLY ROUNDS WILL REPORT CHANGES OR ABNORMAL FINDINGS.
[2018-11-26 08:03] VITALS: BP 148/100
[2018-11-26 11:51] VITALS: BP 120/88
[2018-11-26 17:14] VITALS: BP 132/87
[2018-11-26 19:38] VITALS: BP 119/87
[2018-11-27 04:53] VITALS: BP 129/75
[2018-11-27 04:58] LABS: HEMATOCRIT 36.5 % (42.0-52.0); HEMOGLOBIN 12.1 gm/dL (14.0-18.0); MCH 28.5 pg (26.0-34.0); MCHC 33.2 g/dL (28.0-37.0); MCV 85.6 fL (80.0-100.0); RBC 4.26 mil/uL (4.50-6.00); RDW 14.3 % (10.5-14.5); WBC 13.4 thou/uL (4.0-11.0)
[2018-11-27 05:01] LABS: CREATININE 0.8 mg/dL (0.7-1.3); POTASSIUM 3.4 mmol/L (3.5-5.1)
--- NOTE | 2018-11-27 05:40 | NUR ---
PATIENTS CARES WERE ASSUMED AT SHIFT CHANGE. PATIENT WAS ASSESSED.MEDS WERE PASSED. PATIENT PULLED OFF HIS COUDE APPROX 0330 THIS SHIFT. HE HAS HAD A LINEN CHANGE BECAUSE OF IT. A DELTA LAB ON HIS LABS WERE CALLED. hIS PLATLETTES 509. THIS DELTA WAS CALLED INTO [facility]. PATIENT AFTER THE 330 HOUR PATIENT DID GET COMFORTABLE AND WENT TO SLEEP AFTER A WARMED BLANKET WAS PLACED ON HIM. HOURLY ROUNDING WAS DONE. THE BED IS IN A LOW AND LOCKED POSITION.
[2018-11-27 07:20] VITALS: BP 120/82
[2018-11-27 12:06] VITALS: BP 122/73
[2018-11-27 15:28] VITALS: BP 132/86
--- NOTE | 2018-11-27 17:13 | NUR ---
PATIENT CARE ASSUMED, ASSESSMENT CHARTED, PATIENT ALERT TO SELF, SINGLE LUMEN PICC INSERTED IN R UA, NO COMPLAINTS OF PAIN, WILL CONTINUE TO MONITOR
--- NOTE | 2018-11-27 17:42 | NUR ---
4FRSLPICC PLACED RUAB. PLEASE SEE INSERTION NOTE FOR DETAILS
[2018-11-27 19:23] VITALS: BP 111/65
[2018-11-28 04:08] VITALS: BP 131/59
--- NOTE | 2018-11-28 05:12 | NUR ---
PT A&O X1 TO SELF ONLY. ABLE TO ANSWER TO SOME VERY BASIC QNS. DENIES PAIN. PT HAS L SIDE WKNESS D/T PREVIOUS CVA. TURN/REPO Q2H INCONT OF B&B. CONTINUES ON CONTACT ISO MRSA IN THE BLOOD. PT HAS A PEG TUBE FLUSH ONLY. MECH SOFT DIET THIN LIQUID. ACHS.
[2018-11-28 08:21] VITALS: BP 126/95
--- NOTE | 2018-11-28 08:31 | HC ---
[facility] [place] [address] CONSULTATION Name: LUIS ARMANDO DAVIES Room #: 202-P ADM IN M.R.#: [id number] Admission: 11/20/18 Attend Phys: Stephan Marsh MD Discharge: Date of : 60 Report #: [id number] THIS REPORT FOR: //name// CC: Stephan Strauss Akkulugari DATE OF SERVICE: 11/25/2018 WOUND CARE CONSULTATION REQUESTING PHYSICIAN: Dr. Marsh and Dr. Antony aHssan. CHIEF COMPLAINT: Left chest wall wound. HISTORY OF PRESENT ILLNESS: This is a 58-year-old black male who was admitted for shortness of breath and was hypoxic several days ago and was noted to have possible pacemaker pocket infection. The patient was admitted to the hospital and had pacemaker removed. The patient himself is aphasic and is unable to give me any history at all. Dr. Hassan asked that I see the patient secondary to removal of the pacemaker by himself and now with open wound to the chest wall. Nursing staff states the patient has no other associated wounds. PAST MEDICAL HISTORY: Per old records is for coronary artery disease, atrial fibrillation, dementia, aphasia from previous CVA, renal disease. CURRENT MEDICATIONS: Multiple, I reviewed the patient's medication list. DRUG ALLERGIES: None. SOCIAL HISTORY: The patient supposedly resides in a care facility. There is no family with him at this time. It is unknown if the patient has a history of smoking or alcohol use. FAMILY REVIEW OF SYSTEMS: Unobtainable because of the patient's previous CVA and dementia. PHYSICAL EXAMINATION: VITAL SIGNS: Temp 37.3, pulse 125 and irregular, respiratory rate 20, and BP 120/82. GENERAL: This is awake, alert and oriented x 1 person, but not place or time black male who is in no obvious distress. HEENT: Normocephalic, atraumatic. Mucous membranes are somewhat dry. Pupils are round. Sclerae white. NECK: Supple and nontender. LUNGS: Clear. HEART: Tachycardic and irregularly irregular. [facility] [address] [place] [address] CONSULTATION Name: LUIS ARMANDO DAVIES Room #: 202-P ADM IN M.R.#: [id number] Admission: 11/20/18 Attend Phys: Stephan Marsh MD Discharge: Date of : 60 Report #: [id number] SKIN: Evaluation of chest wall reveals an open wound to the left upper chest, which is fairly clean and granulating. There are no signs of any purulence. Minimal amount of serosanguineous drainage noted without odor. Periwound is indurated, but intact, somewhat tender to palpation. ABDOMEN: Soft, nontender. PEG tube is in place without excoriation. EXTREMITIES: Evaluation of sacrococcygeal region reveals no signs of any open wounds or signs of pressure ulcerations. Bilateral heels are intact. NEUROLOGIC: Cranial nerves 2-12 are grossly intact. LABORATORY DATA: White count 9.4 and hemoglobin 12.6. Sed rate was 77. Albumin is 2.7. IMPRESSION: 1. Left chest wall wound, status post removal of infected pacemaker. 2. Dementia. 3. Cerebrovascular accident with aphasia. 4. Protein-calorie malnutrition, moderate with albumin 2.7. 5. Generalized debility. PLAN: At this time, we will start a wound VAC on the patient today, which we placed by the wound care nurse. We will try to maximize the patient's protein supplementation via tube feeding with dietitian's recommendations. The patient will continue on all other current medications as well as IV antibiotics. We will continue to follow the patient. I appreciate ability to consult. <ELECTRONICALLY SIGNED> By: Chase Barr MD 11/28/18 0831 1215 [id number] Chase Barr MD /nt
[2018-11-28] MEDS ORDERED: VANCOMYCIN1.25 GM/12 IV (09:21)
[2018-11-28] MEDS ORDERED: CARDIZEM CD 18180 M3 PO (09:21)
--- NOTE | 2018-11-28 11:00 | NUR ---
WOUND CARE FOLLOW UP; A WOUND VAC WAS PLACED 11/25. THE DRAINAGE IS SCANT SEROUS. THE WOUND IS TENDER TO THE PATIENT. THE WOUND IS STABLE AT THIS TIME. RECOMMENDATION; TO CONTINUE VAC THERAPY. DISCUSSED WITH RN. DR AUGUSTIN IN THE ROOM
[2018-11-28 11:13] VITALS: BP 142/86
--- NOTE | 2018-11-28 14:02 | NUR ---
WOUND CARE DISCHARGE NOTE; I WAS ALERTED RE; EMMINENT DISCHARGE. I RMOVED THE VAC TO THE LEFT CHEST PLACED A AQUACEL AG DRESSING IN TO THE WOUND BED, COVERED WITH A BOARDERED FOAM DRESSING. DISCUSSED WITH RN AND PRODUCT MANAGER MEDICAL DEVICE
--- NOTE | 2018-11-28 14:04 | NUR ---
patient to dc to [facility] with cont IV antibiotics, oxygen and wound vac. Faxed orders. Updated facility. Arianna collins for 4115- updated patient and brother of dc and timeframe.
--- NOTE | 2018-11-28 16:46 | NUR ---
ASSUMED CARE OF PT AT SHIFT CHANGE. ASSESSEMENTS CHARTED. MEDS GIVEN PER JUN. A&O TO SELF. VSS. NO C/O PAIN. DISCHARGE ORDERS COMPLETE. D/C IV AND TELE. PICC INTACT. ALL BELONGINGS WITH PT. PT TRANSPORTED ON STRETCHER VIA WHEELCHAIR VAN.
== END 2018-11-28 16:41 | DRG 260 ==
LOC: ER 08:35 → EROBS 14:51 → 2N 14:51
PROVIDERS: Emergency Medicine; Internal Medicine; ADMIT Hospitalist
PROC: 4B02XSZ Measurement of Cardiac Pacemaker, External Approach (ICD-10-PCS; principal; 2018-11-22)
PROC: B24BZZ4 Ultrasonography of Heart with Aorta, Transesophageal (ICD-10-PCS; 2018-11-23)
PROC: 0JPT0PZ Removal of Cardiac Rhythm Related Device from Trunk Subcutaneous Tissue and Fascia, Open Approach (ICD-10-PCS; 2018-11-24)
PROC: 02PA0MZ Removal of Cardiac Lead from Heart, Open Approach (ICD-10-PCS; 2018-11-24)
PROC: 05HY33Z Insertion of Infusion Device into Upper Vein, Percutaneous Approach (ICD-10-PCS; 2018-11-27)
DX: T82.7XXA Infection and inflammatory reaction due to other cardiac and vascular devices, implants and grafts, initial encounter (principal); J96.01 Acute respiratory failure with hypoxia; A41.02 Sepsis due to Methicillin resistant Staphylococcus aureus; I48.92 Unspecified atrial flutter; E44.0 Moderate protein-calorie malnutrition; I13.0 Hypertensive heart and chronic kidney disease with heart failure and stage 1 through stage 4 chronic kidney disease, or unspecified chronic kidney disease; I69.354 Hemiplegia and hemiparesis following cerebral infarction affecting left non-dominant side; N39.0 Urinary tract infection, site not specified; I82.A12 Acute embolism and thrombosis of left axillary vein; I50.9 Heart failure, unspecified; I49.5 Sick sinus syndrome; D63.8 Anemia in other chronic diseases classified elsewhere; I48.2 Chronic atrial fibrillation; I25.10 Atherosclerotic heart disease of native coronary artery without angina pectoris; N18.9 Chronic kidney disease, unspecified; F03.90 Unspecified dementia, unspecified severity, without behavioral disturbance, psychotic disturbance, mood disturbance, and anxiety; E87.6 Hypokalemia; E78.5 Hyperlipidemia, unspecified; Y83.1 Surgical operation with implant of artificial internal device as the cause of abnormal reaction of the patient, or of later complication, without mention of misadventure at the time of the procedure; Y92.89 Other specified places as the place of occurrence of the external cause; Z87.19 Personal history of other diseases of the digestive system; I69.320 Aphasia following cerebral infarction; Z68.30 Body mass index [BMI] 30.0-30.9, adult; Z93.1 Gastrostomy status; Z79.01 Long term (current) use of anticoagulants; Z79.82 Long term (current) use of aspirin; Z79.899 Other long term (current) drug therapy
CPT/HCPCS: 10081; 10194; 27000; 62110; 62900; 70005

== ENCOUNTER 2019-03-09 18:06 | Inpatient (IN) | payer OTHER ==
[~2019-03-09] VITALS: Ht 185.4 cm; Wt 108.9 kg
[~2019-03-09 18:06] MED LIST changes: +CARDIZEM CD 18180 M3 PO; +ELIQUIS5 MG PO; +VANCOMYCIN1.25 GM/12 IV
[2019-03-09 18:09] VITALS: BP 127/81
[2019-03-09 18:59] LABS: ABSOLUTE NEUTROPHILS 12.7 thou/uL (1.4-8.2); BASOPHILS 0.4 % (0.0-2.0); HEMATOCRIT 50.2 % (42.0-52.0); HEMOGLOBIN 16.2 gm/dL (14.0-18.0); LYMPHOCYTES 7.1 % (24.0-44.0); MCH 28.3 pg (26.0-34.0); MCHC 32.3 g/dL (28.0-37.0); MCV 87.7 fL (80.0-100.0); PLATELET COUNT 350 thou/uL (150-400); POLYS 89.5 % (36.0-66.0); RBC 5.72 mil/uL (4.50-6.00); WBC 14.2 thou/uL (4.0-11.0)
[2019-03-09 19:03] LABS: CALCIUM 11.1 mg/dL (8.5-10.1); CREATININE 1.8 mg/dL (0.7-1.3); POTASSIUM 3.8 mmol/L (3.5-5.1)
[2019-03-09 19:09] LABS: ALBUMIN 5.1 g/dL (3.4-5.0); DIRECT BILIRUBIN 0.2 mg/dL (<0.1-0.3); TOTAL BILIRUBIN 0.6 mg/dL (<0.1-1.0); TOTAL PROTEIN 11.3 g/dL (6.4-8.2)
[2019-03-09 19:10] LABS: APTT 29.2 Seconds (24.5-32.8); INR 1.2; PROTIME 12.4 Seconds (9.3-11.4)
[2019-03-09 23:25] VITALS: BP 141/80
--- NOTE | 2019-03-10 00:19 | NUR ---
CALLED [facility] TO INQUIRE ABOUT TRANSFERRING THIS PT. THEY STATED THE NURSE TAKING THIS PT WAS NOT ON THE UNIT, THEY WERE TRANSPORTING A PATIENT.
--- NOTE | 2019-03-10 00:54 | NUR ---
CONTACTED [facility] IN REGARDS TO GETTING THIS PATIENT TO THE FLOOR. KAREN STATED THAT THE ROOM HAS A PT IN IT STILL AND THE NURSE IS GIVING A MED, AND THEN SHE WILL TRANSPORT THE PATIENT TO THE OTHER FLOOR. THEN THE ROOM WILL BE STAT CLEANED.
[2019-03-10 02:28] VITALS: BP 101/52
[2019-03-10] MEDS ORDERED: CARDIZEM SR 60M60 MG PER TUBE (04:18)
[2019-03-10] MEDS ORDERED: LEXAPRO5 MG PO (04:19)
[2019-03-10] MEDS ORDERED: COLACE100 MG PER TUBE (04:25)
[2019-03-10] MEDS ORDERED: MILK OF MA400 MG/5 M PO (04:25)
[2019-03-10 06:45] VITALS: BP 143/84
--- NOTE | 2019-03-10 07:42 | NUR ---
PT ARRIVED TO UNIT APPROX 0300, ADMISSION AND ASSESSMENT COMPLETED. PT ALERT TO HIMSELF AND PLACE, MILD DYSPHASIA, LEFT HEMIPLEGIA WITH A VERY WEAK LEFT HAND HOURLY MANAGER. PEG TUBE CONNECTED TO LIS, SMALL AMOUNT OF LIGHT BROWN FLUID OUT; INCONT OF BOWEL AND BLADDER, HAD MULTIPLE LIQUID STOOLS. AFLUTTER WITH HR IN 70'S ON TELE. ON 4L O2 NC, SLEEP APNEA--PLACED ON CPAP AND CONT PULSE OX. HAS SOME EXCORIATION/RED SPOTS ON SCROTUM; LEFT HEEL HAS A YELLOW SCABBY SPOT, SIMILIAR TO A WART, VERY TENDER TO TOUCH. SPOKE WITH PT'S BROTHER ROSE MARIE ABOUT 0600; HE IS THE DPOA AND LIVES IN [place], UPDATED ON PT'S CONDITION. ROSE MARIE ASKED THE THE DOCTOR'S CALL HIM WITH UPDATES. NO OTHER CONCERNS, SHIFT REPORT GIVEN AT 0700.
[2019-03-10 09:06] LABS: HEMATOCRIT 43.6 % (42.0-52.0); MCH 28.4 pg (26.0-34.0); MCV 88.5 fL (80.0-100.0); RBC 4.92 mil/uL (4.50-6.00); RDW 16.6 % (10.5-14.5); WBC 9.7 thou/uL (4.0-11.0)
[2019-03-10 09:13] LABS: CALCIUM 10.1 mg/dL (8.5-10.1); CREATININE 1.1 mg/dL (0.7-1.3); POTASSIUM 3.5 mmol/L (3.5-5.1)
--- NOTE | 2019-03-10 09:48 | NUR ---
Contacted half-way, PEG is no longer used for any feeding and pt usually takes a regular diet.
--- NOTE | 2019-03-10 09:50 | EKG ---
[place] [address] [address] [place] [address] ELECTROCARDIOGRAM REPORT Name: LUIS ARMANDO DAVIES Room #: 350-P ADM IN M.R.#: [id number] Admission: 03/09/19 Attend Phys: Philip Wlison Discharge: Date of : 60 Report #: [id number] THIS REPORT FOR: //name// [facility] ED Test Date: 2019-03-09 Test Time: 19:56:49 Pat Name: LUIS ARMANDO DAVIES Department: Room: 350 Gender: M Watch Dial Stoner: COLLEEN : 1960 Requested By: Emily Gunderson Order Number: [id number] MD: Kishan Joseph Measurements Intervals [place] Rate: 104 P: PA: QRS: 51 QRSD: 127 T: 231 QT: 377 QTc: 496 Interpretive Statements Atrial flutter with varied AV block Nonspecific T wave abnormality Compared to ECG 11/20/2018 08:40:26 No significant change was found Electronically Signed On 03-10-2019 9:50:21 GOLF PLAYER ASSISTANT by Kishan Joseph [email or web address] <ELECTRONICALLY SIGNED> By: Kishan Joseph MD, [facility] 03/10/19 0950 55 55 Kishan Joseph MD, FACC /EPI
[2019-03-10 11:26] VITALS: BP 123/71
--- NOTE | 2019-03-10 14:16 | NUR ---
DISCHARGE PLANNING. PATIENT IS A RESIDENT AT [facility], LTC UNIT. PLAN IS FOR PATIENT TO RETURN TO [facility] ONCE MEDICALLY READY. PATIENT CLINICALS FAXED TO [facility]. CALL PLACED TO [facility] TO NOTIFY. FOLLOWING TO ASSIST.
[2019-03-10 14:59] VITALS: BP 139/90
--- NOTE | 2019-03-10 15:46 | NUR ---
ASSESSMENT: CM REVIEWED CHART. PT WAS ADMITTED FROM [facility]. PT WAS ADMITTED FOR POSSIBLE SBO. PT HAS HX OF CVA, LEFT SIDED HEMIPLEGIA, APHASIA, AND DYSPHAGIA AND HAS A PEG TUBE. GI EVALUATED PATIENT WELL DR. ZARATE AND PLANS ARE FOR PATIENT TO HAVE A COLON PREP FOR A COLONOSCOPY. CM CONTACTED PATIENTS BROTHER/JEFF TROTTER TO UPDATE AND ALSO PROVIDED HIM WITH THE NURSES STATION NUMBER. PLANS ARE FOR PATIENT TO RETURN TO [facility] ONCE MEDICALLY STABLE. ORTIZ SPOKE WITH LIASON FROM [facility] TO CONFIRM INFORMATION AND SHE REPORTS SHE RECEIVED UPDATES THAT [facility] HAS FAXED. CM WILL CONTINUE TO FOLLOW TO ASSIST NEEDED.
--- NOTE | 2019-03-10 16:19 | NUR ---
ASSESSMENT: CM REVIEWED CHART. PT WAS ADMITTED FROM [facility]. PT WAS ADMITTED FOR POSSIBLE SBO. PT HAS HX OF CVA, LEFT SIDED HEMIPLEGIA, APHASIA, AND DYSPHAGIA AND HAS A PEG TUBE. GI EVALUATED PATIENT WELL DR. ZARATE AND PLANS ARE FOR PATIENT TO HAVE A COLON PREP FOR A COLONOSCOPY. CM CONTACTED PATIENTS BROTHER/JEFF TROTTER TO UPDATE AND ALSO PROVIDED HIM WITH THE NURSES STATION NUMBER. PLANS ARE FOR PATIENT TO RETURN TO [facility] ONCE MEDICALLY STABLE. ORTIZ SPOKE WITH LIASON FROM [facility] TO CONFIRM INFORMATION AND SHE REPORTS SHE RECEIVED UPDATES THAT MANAGER ACCOUNT MANAGEMENT HAS FAXED. CM WILL CONTINUE TO FOLLOW TO ASSIST NEEDED.
--- NOTE | 2019-03-10 18:23 | NUR ---
ASSUMED PATIENT CARE AT 0700. A/O X 2. APHASIA. NO NAUSEA,NO VONIT. PEG TUBE TO DEPENDENT DRAINAGE. INCONTINENT URINE AND BOWEL. VSS, TOLERATED ON 4L/NC. Q2H TURN. KEEP MONITOR.
[2019-03-10 20:55] VITALS: BP 175/91
[2019-03-11] VITALS (7 sets, daily range): BP systolic 115–165; BP diastolic 76–99
--- NOTE | 2019-03-11 05:01 | NUR ---
Nursing assisted patient with ROM exercises. Nursing will continue to monitor.
--- NOTE | 2019-03-11 05:10 | NUR ---
Nursing turned patient Q2 and cleaned him PRN through NOC. Nursing will continue to monitor.
[2019-03-11 06:10] LABS: HEMATOCRIT 39.6 % (42.0-52.0); HEMOGLOBIN 12.6 gm/dL (14.0-18.0); MCH 28.1 pg (26.0-34.0); MCHC 31.7 g/dL (28.0-37.0); MCV 88.7 fL (80.0-100.0); RBC 4.47 mil/uL (4.50-6.00); RDW 16.1 % (10.5-14.5); WBC 7.7 thou/uL (4.0-11.0)
[2019-03-11 06:26] LABS: CALCIUM 9.1 mg/dL (8.5-10.1); CREATININE 0.8 mg/dL (0.7-1.3)
[2019-03-11 06:29] LABS: POTASSIUM 2.9 mmol/L (3.5-5.1)
--- NOTE | 2019-03-11 17:24 | NUR ---
EXPRESSIVE APHASIA, SPOKE ON PHONE AT LENGTH THIS AM, WATCHED TV, RESTED INTERMITTENTLY TODAY. AFLUTTER/FIB, 4L/NC, RESP EVEN AND UNLABORED, A COUPLE OF TIMES COUGHED UP THICK BEIGE SECRETIONS WITH RED TINGE, REMAINS NPO, NO EVIDENCE OF GI BLEED, GASTRIC SECRETIONS PER G-TUBE YELLOW/GREEN, INCONTINENT OF URINE, REPOSITIONED FOR COMFORT EVERY 2 HRS AND NEEDED. AWAITING PLAN FOR EGD/COLONSCOPY ON Wednesday PER GI. SLOWLY PROGRESSING.
[2019-03-12] VITALS (7 sets, daily range): BP systolic 127–165; BP diastolic 86–106
--- NOTE | 2019-03-12 05:33 | NUR ---
ASSUMED CARE AT 1900. PT DENIED PAIN OR NAUSEA AT START OF SHIFT. DENIED SOB, KEPT TAKING O2 OFF BUT HELD SATS IN MID 90'S OR HIGHER WHILE AWAKE, DROPPING TO 89-90% DURING APNIC PERIODS AND O2 OFF; REMINDED PT HE NEEDED TO WEAR HIS O2 ESPECIALLY SINCE HE DIDN'T WANT TO USE THE CPAP OVERNIGHT. HR INITIALLY A REGULAR FLUTTER IN THE 90'S, BUT GRADUALLY INCREASED AND BECAME MORE IRREGULAR, AND IN AFIB. HR JOI TO 120'S AND STAYED DESPITE GETTING METOPROLOL AT MIDNIGHT. PT ALSO CALLING OUT, STRUGGLED TO EXPRESS WHAT WAS WRONG, BUT EVENTUALLY SAID HE WAS HAVING A HARD TIME BREATHING; RAISED THE HOB AND SLIGHTLY REPOSITIONED THE PT, AND HE REPORTED IMPROVEMENT. ALSO GAVE A DOSE OF MORPHINE TO HELP WITH DISCOMFORT, BREATHING, AND HR. HELPED SLIGHTLY, HR GRADUALLY GOING DOWN TO 80-90'S. PT HAD ABOUT 100 ML OUT OF THE PEG TUBE, LIGHT GREEN IN COLOR. NO OTHER CONCERNS, WILL CONTINUE TO MONITOR.
--- NOTE | 2019-03-12 16:25 | NUR ---
ASSUMED CARE OF PT AT 0700. PT AOX2 IN NO ACUTE DISTRESS. APHASIC. PG TUBE DRAINING TO DEPEDENT DRAINAGE. INCONTINENT OF BOWEL/BLADDER. NO BM TODAY. COLON PREP STARTING TONIGHT FOR AM PROCEDURE. DPOA NOTIFIED BY PHONE - VERBAL CONSENT PROVIDED TO 2 RN'S BY PHONE. PT PROGRESSING TOWARD POC GOALS.
[2019-03-13 03:44] VITALS: BP 134/102
[2019-03-13 04:47] LABS: HEMOGLOBIN 13.2 gm/dL (14.0-18.0); MCH 28.2 pg (26.0-34.0); MCHC 32.2 g/dL (28.0-37.0); MCV 87.8 fL (80.0-100.0); RBC 4.67 mil/uL (4.50-6.00); WBC 6.7 thou/uL (4.0-11.0)
--- NOTE | 2019-03-13 05:18 | NUR ---
Patient was able to void via external male cath throughout NOC; ann-marie's skin remained dry and he was turned q2 hours. No new skin breakdown NOC. Nursing will continue to monitor.
[2019-03-13 05:24] LABS: CALCIUM 8.9 mg/dL (8.5-10.1); CREATININE 0.6 mg/dL (0.7-1.3)
[2019-03-13 05:33] LABS: POTASSIUM 2.6 mmol/L (3.5-5.1)
--- NOTE | 2019-03-13 05:37 | NUR ---
Patient refused his CPAP NOC but agreed to wear NC/4L.
[2019-03-13 07:18] VITALS: BP 146/107
[2019-03-13 11:54] VITALS: BP 147/95
--- NOTE | 2019-03-13 13:02 | NUR ---
ON-GOING ASSESSMENT: PT IS TO HAVE COLONOSCOPY TODAY AND PENDING RESULTS PATIENT MAY NEED COLECTOMY IF MASS IS FOUND. CM WILL CONTINUE TO FOLLOW AND AWAIT FOR RESULTS.
--- NOTE | 2019-03-13 15:07 | NUR ---
ASSUMED PATIENT CARE AT 0700. ALERT. GIVEN 500ML WATER ENAMA IN AM. PATIENT WENT TO EGD/ COLONOSCOPY AT 1350. RECEIVED PHONE CALL FROM GI LAB THAT PATIENT WILL TRANSFER TO [facility] POST CODE.
--- NOTE | 2019-03-13 15:23 | EKG ---
[address] [address] ELECTROCARDIOGRAM REPORT Name: LUIS ARMANDO DAVIES Room #: 240-P ADM IN M.R.#: [id number] Admission: 03/09/19 Attend Phys: Philip Wilson Discharge: Date of : 60 Report #: [id number] THIS REPORT FOR: //name// [facility] Test Date: 2019-03-13 Test Time: 14:06:22 Pat Name: LUIS ARMANDO DAVIES Department: Room: 240 Gender: M Mapping Analyst: Ghada PEPPER : 1960 Requested By: Sonny Sherman Order Number: [id number] MD: Antony Hassan Measurements Intervals [place] Rate: 161 P: NV: QRS: 62 QRSD: 88 T: 229 QT: 261 QTc: 427 Interpretive Statements Atrial flutter Repolarization abnormality, prob rate related Baseline wander in lead(s) V1 Electronically Signed On 03-13-2019 15:22:39 PROFESSOR OF THEATER by Antony Hassan [email or web address] <ELECTRONICALLY SIGNED> By: Antony Hassan MD 03/13/19 1522 1406 1406 Antony Hassan MD /SOL
[2019-03-13 17:59] VITALS: BP 136/94
[2019-03-13 19:31] VITALS: BP 135/86
[2019-03-13 23:56] VITALS: BP 141/92
--- NOTE | 2019-03-14 05:49 | NUR ---
Received pt. on 2L/NC which he intermittently takes off. No respiratory distress and maintained O2 sat in the upper 90's. He has been repositioned for comfort. A fib/flutter in the 100's to 130's at times. Scheduled metoprolol given. Critical K level of 2.8 , replaced per electrolyte protocol. Kept NPO. No nausea or vomiting. Peg tube to drainage bag per gravity and had 100 ml brownish, light green dge. Male external cath in place with 600 ml of clear, yellow urine. Brother DPOA called this am to get an update on pt. Bed alarm on for safety. Cont. on isolation precaution,afebrile. Will continue to monitor.
[2019-03-14 06:43] LABS: HEMATOCRIT 43.1 % (42.0-52.0); HEMOGLOBIN 14.1 gm/dL (14.0-18.0); MCH 28.4 pg (26.0-34.0); MCHC 32.6 g/dL (28.0-37.0); RBC 4.96 mil/uL (4.50-6.00); RDW 14.8 % (10.5-14.5); WBC 8.7 thou/uL (4.0-11.0)
[2019-03-14 06:50] LABS: CALCIUM 9.2 mg/dL (8.5-10.1); POTASSIUM 3.2 mmol/L (3.5-5.1)
[2019-03-14 07:29] VITALS: BP 145/91
[2019-03-14 12:00] VITALS: BP 141/83
--- NOTE | 2019-03-14 13:22 | NUR ---
ON-GOING ASSESSMENT: CM REVIEWED CHART AND SPOKE WITH ATTENDING. PT IS SLOWLY PROGRESSING TOWARDS GOALS BUT NEEDS LIVER BIOPSY TODAY. CM NOTIFIED TINO AT [facility] AND SHE REQUEST UPDATES ON PATIENT. CM NOTIFIED COPIER OPERATOR TO PLEASE ASSIST WITH SENDING UPDATES. CM WILL CONTINUE TO FOLLOW TO ASSIST NEEDED.
--- NOTE | 2019-03-14 13:58 | P ---
[facility] [place] [address] PROCEDURE REPORT Name: LUIS ARMANDO DAVIES Room #: 350-P ADM IN M.R.#: [id number] Admission: 03/09/19 Attend Phys: Philip Wilson Discharge: Date of : 60 Report #: [id number] THIS REPORT FOR: //name// CC: Dimas Whitaker DATE OF SERVICE: 03/13/2019 PROCEDURE PERFORMED: Colonoscopy with polypectomies. HISTORY OF PRESENT ILLNESS: The patient is a 58-year-old male with a history of coffee-ground emesis. He has a history of CVA. PEG tube is in place. Upper endoscopy was just performed, which showed possible short segment of Serrato's esophagus, mild gastritis and no evidence of bleeding. A CT scan of the abdomen and pelvis was performed on 03/09/2019, low density mass involving the right hepatic lobe, suspicious for metastatic involvement; second lesion in the anterior right lobe of the liver also noted, indeterminate and thickening of the gallbladder wall suggesting multiple adherent stones. Small bowel was distended with proximal small bowel loops measuring 4 cm. Also, an abnormal appearance within the descending duodenum, may represent a duodenal polyp or similar abnormality; diffuse fluid throughout the colon compatible with diarrhea with focal narrowing involving the proximal sigmoid colon. This could represent a very short apple core type lesion involving the proximal sigmoid colon. No obvious large bowel inflammatory processes noted. Plan is for colonoscopy. DESCRIPTION OF PROCEDURE: The risks and benefits of the procedure were explained to the patient's durable power of mergers and acquisitions attorney. There were risks including, but not limited to bleeding, perforation and the risk of sedation. He understood these risks and gave informed consent. Sedation was given using propofol per anesthesia. Next, a digital rectal exam was initially performed, which was normal. Next, using a standard Olympus colonoscope, the scope was placed in the patient's anus and advanced under direct vision to the cecum. The overall prep was good. The cecum and ileocecal valve were normal in appearance. Terminal ileum was intubated and normal in appearance. In the ascending colon, a 5 mm sessile polyp was noted. This was removed with cold forceps, otherwise normal. Transverse colon was normal. In the descending colon, there were 2 polyps noted, both were removed by snare cautery, the larger was 1.2 cm and the smaller was approximately 8 mm in size. Multiple diverticula were noted in the descending and sigmoid colon. There was no mass lesion noted in the sigmoid colon and no evidence of active inflammation in the diverticula. The rectal mucosa was normal. On retroflexion, small nonbleeding internal hemorrhoids were noted. The scope was then withdrawn and the procedure terminated. The patient tolerated the procedure well. [address] [address] PROCEDURE REPORT Name: KEKELUIS ARMANDO Room #: 350-P [facility] IN M.R.#: [id number] Admission: 03/09/19 Attend Phys: Philip Wilson Discharge: Date of : 60 Report #: [id number] IMPRESSION: 1. Three colonic polyps as described above. 2. Left-sided diverticulosis. 3. Internal hemorrhoids. 4. Otherwise, normal colonoscopy. No mass lesions were seen on colonoscopy. RECOMMENDATIONS: 1. Await biopsy results. 2. May need to consider biopsy of liver lesion. Thank you for allowing me to participate in his care. <ELECTRONICALLY SIGNED> By: Sonny Sherman MD 03/14/19 1358 1555 0118 Sonny Sherman MD /nt
--- NOTE | 2019-03-14 13:58 | P ---
[facility] [place] [address] PROCEDURE REPORT Name: LUIS ARMANDO DAVIES Room #: [facility] IN M.R.#: [id number] Admission: 03/09/19 Attend Phys: Philip Wilson Discharge: Date of : 60 Report #: [id number] THIS REPORT FOR: //name// CC: Philip Strauss Akkulugari DATE OF SERVICE: 03/13/2019 PROCEDURE PERFORMED: Upper endoscopy with biopsies. HISTORY OF PRESENT ILLNESS: The patient is a 58-year-old male with a history of coffee-ground emesis. He has had a previous CVA. He has a PEG tube in place. Plan is for EGD and colonoscopy today. A CT scan of the abdomen and pelvis shows a possible mass in his colon as well as potential metastatic disease in the liver. The patient is unable to give any history due to his mental status. DESCRIPTION OF PROCEDURE: The risks and benefits of the procedure were explained to the patient's DPOA, those risks including but not limited to bleeding, perforation, the risk of sedation. They understood these risks and gave informed consent. Sedation was given using propofol. Next, using a standard Olympus upper endoscope, the scope was placed in the patient's mouth and advanced under direct vision into the stomach. At this point, the patient began desatting and became tachycardic. The scope was then withdrawn. The patient was intubated and O2 sat stabilized. The scope was reintroduced into the patient's esophagus, stomach and into the second portion of the duodenum. The upper and mid esophagus were normal in appearance. In the distal esophagus, a possible short segment of Serrato's was noted. Biopsies obtained. No evidence of esophagitis. Upon entering the stomach, a small hiatal hernia was noted. The PEG tube bumper was noted to be in good position in the mid body. There was a mild gastritis in the body of the stomach as well. Biopsies obtained to rule out H. pylori. No evidence of bleeding. The pylorus was normal and patent. 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 Several biopsies were obtained. The first and second portion of the duodenum were normal. The scope was then withdrawn and the procedure terminated. The patient tolerated the procedure well. IMPRESSION: 1. Possible short-segment Serrato's. 2. PEG tube noted to be in good position. 3. Gastritis. 4. 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 RECOMMENDATIONS: 1. Await biopsy results. 2. We will proceed with colonoscopy next today. [address] [address] PROCEDURE REPORT Name: LUIS ARMANDO DAVIES Room #: 350-P [facility] IN M.R.#: [id number] Admission: 03/09/19 Attend Phys: Philip Wilson Discharge: Date of : 60 Report #: [id number] Thank you for allowing me to participate in his care. <ELECTRONICALLY SIGNED> By: Sonny Sherman MD 03/14/19 1358 1425 0045 Sonny Sherman MD /nt
--- NOTE | 2019-03-14 15:01 | NUR ---
ASSUMED PATIENT CARE AT 0700. ALERT. RECEIVED PHONE CALL FROM IR THAT THEY WILL DO LIVER BIOPSY TOMORROW DUE TO PATIENT NEEDS OFF ASPIRN 5 DAYS. NO NAUSEA,VOMIT NOTED. TOLERATED ON RA. WILL KEEP MONITOR.
[2019-03-14 17:01] VITALS: BP 134/85
[2019-03-14 19:30] VITALS: BP 121/73
[2019-03-15] VITALS (8 sets, daily range): BP systolic 109–130; BP diastolic 73–91
--- NOTE | 2019-03-15 04:34 | NUR ---
PT A/0 X2 STOPPED PT TUBE FEEDING AT 2400. PT WILL GO FOR LIVER BIOPSY TODAY. HR AT STAYING BELOW 110 BPM. LOW LOSS AIR PUMP INSTALLED ON BED. Q2 TURNS. IVF GTT D5 1/2NS AT 50ML/HR. BS AT 2400 WAS 128, WILL MONITOR 0600 ACCU CHECK. PT WILL NOT KEEP OXYGEN ON DURING EVENING. ISOLATION PRECAUTIONS IN PLACE. HOURLY ROUNDING.
--- NOTE | 2019-03-15 09:19 | NUR ---
Recommend goal rate of tube feeding to reach 55ml/hr
[2019-03-15] MEDS ORDERED: PROTONIX40 M1 PO (14:46)
--- NOTE | 2019-03-15 15:29 | NUR ---
on-going assessment: CM SPOKE WITH ATTENDING AND PTS HAS ORDERS TO DISCHARGE BACK TO HIS FACILITY [facility] TODAY. CM NOTIFIED LIASON AT [facility] WHO ARRANGED STRETCHER TO CHIEF OPERATOR LOCK TENDER PATIENT AT 1600. CM NOTIFIED BEDSIDE RN WELL PROVIDED HER WITH THE NUMBER FOR REPORT. CHART COPY WAS ORDERED. CM FAXED D/C ORDERS AND SUMMARY TO FACILITY AND CONFIRMED THEY RECEIVED IT. CM LEFT VM WITH PATIENTS BROTHER/JEFF TROTTER.
--- NOTE | 2019-03-15 16:34 | NUR ---
PT CARE ASSUMED APPROX 0700. ASSESSMENTS CHARTED. PT DENIES PAIN AND SOA. VSS. LIVER BIOPSY COMPLETED WITHOUT ISSUE. PT APPROVED FOR DISCHARGE. FACILTIY WAS CALLED MULTIPLE TIMES WITHOUT THIS NURSE EVER SPEAKING TO ANYONE. CASE MANAGEMENT WAS NOTIFIED AND REPORT WAS FINALLY ABLE TO BE GIVEN TO NURSE CLINT. COMPLETE REPORT WAS GIVEN AND IT WAS HIGHLIGTED BY THIS NURSE THAT PT CAME WITH TO [facility] WITH DIET ORDER BUT SINCE BEING HERE HAD CLINICAL ISSUES THAT REQUIRED A REPEAT ST EVAL BUT THAT A DIET WAS NEVER ORDERED BECAUSE DESPITE ST EVALs PT WAS NEVER ALERT ENOUGH TO DO WELL. IT WAS ALSO HIGHLIGHTED THAT TUBE FEEDING RESIDUALS NEEDED TO BE ASSESSED Q4 AND IF >85CC WE WERE TO NOT ADVANCE TUBE FEEDING TO GOAL OF 55CC/HR. IT WAS ALSO TOLD THAT IF PT HAD NO RESIDUALS, AT 2000 TUBE FEEDING SHOULD BE INCREASED TO GOAL 55CC/HR. NURSE REPORTS UNDERSTANDING AND DENIES QUESTIONS OR CONCERNS REGARDING PREVIOUSLY HIGHLIGHTED INFORMATION AND ALL OTHER AREAS OF REPORT/POC. NO DISTRESS NOTED. IV OUT, TELE BOX OFF. FAMILY AWARE AND CLINICALLY UPDATED WELL. MEDICAL TRANSPORATION HAS ALREADY LEFT WITH PT.
--- NOTE | 2019-03-15 17:06 | PATH ---
[facility] [place] [address] PATHOLOGY RPT PROCEDURE Name: MICK DAVIES Room #: 350-P DIS IN M.R.#: [id number] Admission: 03/09/19 Date of : 60 Discharge: 03/15/19 Report #: [id number] Path Case #: [id number] [facility] Accession Number: [id number] . 01 Material submitted: . PART A: duodenum - DUODENAL BIOPSY NODULE PART B: esophagus - BIOPSY DISTAL ESOPHAGUS R/O BARRETTS. Modifiers: distal PART C: stomach - BIOPSY GASTRITIS R/O H. PYLORI PART D: colon - BIOPSY POLYP AT ASCENDING COLON. Modifiers: ascending PART E: colon - POLYLP AT DESCENDING COLON X2. Modifiers: descending . 01 Clinical history: . Pre-op diagnosis: Coffee-ground emesis Post-op diagnosis: Duodenal nodule, gastritis, hiatal hernia B: R/O Serrato's C: R/O H. pylori . 02 Diagnosis: A. Small bowel mucosa, duodenal nodule, endoscopic biopsy; - Fundic-type metaplasia, mild villous blunting along with moderate acute and chronic duodenitis, findings compatible with peptic duodenitis. - Negative for increase in intraepithelial lymphocytes. . B. Gastroesophageal mucosa, distal esophagus rule out Serrato's, endoscopic biopsy: - Moderate chronic inflammation associated with reactive changes. - Negative for Serrato's metaplasia present. - Squamous mucosa with mild esophagitis. . C. Gastric mucosa, gastritis, rule out H. pylori, endoscopic biopsy: - Mild reactive gastropathy. - Negative for intestinal metaplasia or atrophy. - Negative for Helicobacter pylori (properly controlled immunohistochemical stain performed). . D. Polyp, at ascending colon, endoscopic biopsy: - Tubular adenoma. - Negative for high-grade dysplasia. . E. Polyp x2, descending colon, endoscopic biopsy: - All fragments showing tubular adenoma. - Negative for high-grade dysplasia. . 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 02 Electronically signed: . [address] [address] PATHOLOGY RPT PROCEDURE Name: MICK DAVIES Room #: 350-P [facility] IN ..#: [id number] Admission: 03/09/19 Date of : 60 Discharge: 03/15/19 Report #: [id number] Path Case #: [id number] Yesenia Vaughan MD, Pathologist NPI- [id number] . 01 Gross description: . A. The specimen is received in formalin, labeled "Mick Davies, duodenal biopsy". Received are three segments of pale simms soft tissue ranging in size from 0.3 to 0.6 cm in maximum dimensions. The specimen is submitted entirely in cassette A1. . B. The specimen is received in formalin, labeled "Mick Davies, biopsy distal esophagus, R/O Serrato's". Received are two segments of pale simms soft tissue ranging in size from 0.3 to 0.5 cm in maximum dimensions. The specimen is submitted entirely in cassette B1. . C. The specimen is received in formalin, labeled "Mick Davies, biopsy gastritis, R/O H. pylori". Received are four segments of pale simms soft tissue ranging in size from 0.4 to 0.7 cm in maximum dimensions. The specimen is submitted entirely in cassette C1. . D. The specimen is received in formalin, labeled "Mick Davies, biopsy polyp at ascending colon". Received is a segment of pale simms soft tissue measuring 0.5 cm in maximum dimensions. The specimen is submitted entirely in cassette D1. . E. The specimen is received in formalin, labeled "Mick Gopal, polyp at descending colon x2". Received are two segments of light brown soft tissue measuring 0.5 and 1.1 cm in maximum dimensions. The surgical margin of the larger segment is inked and the segment is bisected. The specimen is submitted entirely in cassette E1. (CAA; 03/14/2019) QA/[facility] 03/14/2019 0952 Local . 02 Pathologist provided ICD-10: K29.80, K20.8, K31.9, D12.2, D12.4 . 02 CPT . 432565, 654697, 927969, 163608, 596957, T98831 Specimen Comment: A courtesy copy of this report has been sent to [phone] Specimen Comment: [phone], Specimen Comment: Report sent to , and Performed at: 01 [facility] [address] [place] [address] [address], [place], [place] [id number] [address] MD Phone: [phone] Performed at: 02 [facility] [place] [address], [place], [place] [id number] [facility] [address] [place] [address] PATHOLOGY RPT PROCEDURE Name: MICK DAVIES Room #: 350-P DIS IN M.R.#: [id number] Admission: 03/09/19 Date of : 60 Discharge: 03/15/19 Report #: [id number] [facility] Case #: [id number] MD Yesenia Vaughan MD Phone: [phone]
--- NOTE | 2019-03-17 16:06 | PATH ---
[facility] [address] [place] [address] PATHOLOGY RPT PROCEDURE Name: MICK DAVIES Room #: 350-P [facility] IN M.R.#: [id number] Admission: 03/09/19 Date of : 60 Discharge: 03/15/19 Report #: [id number] Path Case #: [id number] [facility] Accession Number: [id number] . 01 Material submitted: . liver - RIGHT LIVER MASS BIOPSY. Modifiers: right . 01 Clinical history: . SBO, atrial flutter Right liver mass . 02 Diagnosis: Liver, right liver mass, needle core biopsy: - Cavernous hemangioma. - Mass effect identified within the adjacent hepatic parenchyma. - Negative for malignancy. LBQ 03/17/2019 1201 Local . 02 Comment: Examination shows fibrous areas interspersed with vascular channels filled with blood. The adjacent hepatic parenchyma shows thinning of cords as well as some extravasated red cells within scattered foci. Properly controlled special stain reticulin performed on block A1 confirms thinning of the hepatic cords. This is compatible with mass effect within the adjacent liver parenchyma. Multiple properly controlled immunohistochemical stains are performed on block A1. There is strong reactivity with CD34 within the vascular channels. CK19 is non-reactive within the lesion. Scattered bile ducts show membranous reactivity consistent with an appropriate internal control. AE1/AE3 is non-reactive within the lesional area. Findings are consistent with a cavernous hemangioma. There is no evidence of malignancy. Presence of multiple masses is noted. Please note sample may not be entirely community engagement representative; correlate clinically and follow-up as indicated. (IUV/db; 03/17/2019) . 02 Electronically signed: . Yesenia Vaughan MD, Pathologist NPI- [id number] . 01 Gross description: . Received in formalin labeled "Mick Davies, right liver BX," are 5 distinct needle cores of simms soft tissue ranging from 0.3-1.6 cm in length and measuring less than 0.1 cm each in diameter. The specimen is submitted entirely in cassettes A1-A3. (TSD; 03/15/2019) TOB/TOB 03/15/2019 2308 Local . [address] [address] PATHOLOGY RPT PROCEDURE Name: MICK DAVIES Room #: 350-P DIS IN M.R.#: [id number] Admission: 03/09/19 Date of : 60 Discharge: 03/15/19 Report #: [id number] Path Case #: [id number] Pathologist provided ICD-10: D18.09 . 02 CPT . 163907, 817563, U41374, E23984 Specimen Comment: A courtesy copy of this report has been sent to [phone] Specimen Comment: Report sent to , and Performed at: [address] [facility], [place] [id number] MD [address] MD Phone: [phone] Performed at: [address] [facility] [id number] MD Yesenia Vaughan MD Phone: [phone]
== END 2019-03-15 16:32 | DRG 380 ==
LOC: ER 18:06 → 3W 21:56 → EROBS 21:56 → 3W 03-10 02:30 → ICU 03-13 14:43 → 3W 03-13 16:30 → ICU 03-13 17:45 → 3W 03-13 17:56
PROVIDERS: Emergency Medicine; Hospitalist; Nurse Practitioner Family; ADMIT Hospitalist
DX: K22.70 Barrett's esophagus without dysplasia (principal); N17.0 Acute kidney failure with tubular necrosis; K56.609 Unspecified intestinal obstruction, unspecified as to partial versus complete obstruction; I48.20 Chronic atrial fibrillation, unspecified; I69.954 Hemiplegia and hemiparesis following unspecified cerebrovascular disease affecting left non-dominant side; K29.71 Gastritis, unspecified, with bleeding; K57.91 Diverticulosis of intestine, part unspecified, without perforation or abscess with bleeding; K44.9 Diaphragmatic hernia without obstruction or gangrene; D13.2 Benign neoplasm of duodenum; K31.89 Other diseases of stomach and duodenum; R41.841 Cognitive communication deficit; E78.5 Hyperlipidemia, unspecified; G40.909 Epilepsy, unspecified, not intractable, without status epilepticus; E11.22 Type 2 diabetes mellitus with diabetic chronic kidney disease; I12.9 Hypertensive chronic kidney disease with stage 1 through stage 4 chronic kidney disease, or unspecified chronic kidney disease; N18.9 Chronic kidney disease, unspecified; Z96.641 Presence of right artificial hip joint; F32.9 Major depressive disorder, single episode, unspecified; K63.5 Polyp of colon; R16.0 Hepatomegaly, not elsewhere classified; K81.1 Chronic cholecystitis; R13.10 Dysphagia, unspecified; Z79.4 Long term (current) use of insulin; Z79.2 Long term (current) use of antibiotics; Z95.0 Presence of cardiac pacemaker; Z79.82 Long term (current) use of aspirin; Z79.899 Other long term (current) drug therapy
CPT/HCPCS: 10879; 62110; 62900; 70005

== ENCOUNTER 2019-04-08 13:09 | Inpatient (IN) | payer OTHER ==
[2019-04-08] VITALS (10 sets, daily range): BP systolic 116–146; BP diastolic 70–105
[~2019-04-08] VITALS: Ht 170.2 cm; Wt 100.9 kg
[~2019-04-08 13:09] MED LIST changes: -ARMODAFINIL150 MG PER TUBE; +ARMODAFINIL150 MG PO; -BROMOCRIPTINE2.5 M1 PER TUBE; +BROMOCRIPTINE2.5 M1 PO; +CARDIZEM SR 60M60 MG PER TUBE; +COLACE100 MG PO; -GABAPENTIN 100100 MG PER TUBE; +GABAPENTIN 100100 MG PO; -KEPPRA 500 MG500 M1 PER TUBE; +KEPPRA 500 MG500 M1 PO; -LIPITOR 20 MG T20 M1 PER TUBE; +LIPITOR 20 MG T20 M1 PO; +MILK OF MA400 MG/5 M PO; +SINGULAIR 10 MG10 M1 PO; -TYLENOL325 MG PER TUBE; +TYLENOL325 MG PO; -VITAMIN B-1100 M1 PER TUBE; +VITAMIN B-1100 M1 PO; -ZOFRAN4 MG PER TUBE; +ZOFRAN4 MG PO
[2019-04-08 13:33] LABS: ABSOLUTE NEUTROPHILS 6.5 thou/uL (1.4-8.2); BASOPHILS 0.2 % (0.0-2.0); HEMATOCRIT 44.4 % (42.0-52.0); HEMOGLOBIN 14.4 gm/dL (14.0-18.0); LYMPHOCYTES 5.7 % (24.0-44.0); MCH 28.3 pg (26.0-34.0); MCHC 32.5 g/dL (28.0-37.0); MCV 87.1 fL (80.0-100.0); MONOCYTES 2.7 % (1.0-8.0); PLATELET COUNT 241 thou/uL (150-400); POLYS 89.4 % (36.0-66.0); RDW 14.2 % (10.5-14.5); WBC 7.3 thou/uL (4.0-11.0)
[2019-04-08 13:35] LABS: CALCIUM 9.5 mg/dL (8.5-10.1); CREATININE 0.8 mg/dL (0.7-1.3); POTASSIUM 3.5 mmol/L (3.5-5.1)
[2019-04-08 13:41] LABS: ALBUMIN 3.9 g/dL (3.4-5.0); TOTAL BILIRUBIN 0.3 mg/dL (<0.1-1.0); TOTAL PROTEIN 8.9 g/dL (6.4-8.2)
[2019-04-08 15:18] LABS: URINE BILIRUBIN NEGATIVE (Negative); URINE BLOOD NEGATIVE (Negative); URINE CLARITY CLEAR; URINE COLOR YELLOW; URINE GLUCOSE-RANDOM* NEGATIVE (Negative); URINE KETONES TRACE (Negative); URINE LEUKOCYTES-REFLEX 1+ (Negative); URINE NITRITE-REFLEX POSITIVE (Negative); URINE PROTEIN (DIPSTICK) 1+ (Negative); URINE SPECIFIC GRAVITY 1.025 (1.005-1.035); URINE UROBILINOGEN 0.2 E.U./dl (0.2-1.0)
--- NOTE | 2019-04-08 15:57 | NUR ---
PHONE CALL MADE TO THE PT'S FRIEND JUANA REGARDING THE PT GOING TO BE ADMITTED TO AN INPATIENT BED. JUANA ADVISED SHE WILL COME BACK UP TO SEE THE PT LATER THIS EVENING OR TOMORROW.
[2019-04-08 16:27] LABS: CASTS None Seen /LPF (None Seen); SQUAMOUS None Seen /LPF (0-3)
[2019-04-08 16:28] LABS: BACTERIA-REFLEX >30 Many /HPF (None Seen); CRYSTALS None Seen /LPF (None Seen); URINE RBC None Seen /HPF (0-2)
--- NOTE | 2019-04-08 17:03 | NUR ---
THE PT'S DPOA FLAQUITA CALLED AND ASKED FOR AN UPDATE ABOUT THE PT. FLAQUITA WAS ADVISED THAT THE PT IS GOING TO BE ADMITTED FOR A UTI AND A-FLUTTER. THE PT'S SON REQUESTS UPDATES ON THE PT'S CONDITION.
--- NOTE | 2019-04-08 17:54 | NUR ---
DR GARZA PAGED AND HE RETURNED THE CALL. DR GARZA WAS ASKED IF THE PT COULD TAKE PO MEDS IF HE'S NPO? DR GARZA STATED THAT HE COULD HAVE A REGULAR DIET AND GIVEN MEDS BY MOUTH IF HE IS ABLE TO. DR GARZA WAS ADVISED THAT THIS ANALYSIS LEAD WILL ATTEMPT TO CALL [facility] TO ASK ABOUT THE DIET THE PT IS ON AND THE PEG TUBE/JEVITY.
--- NOTE | 2019-04-08 17:57 | NUR ---
THIS SCHEDULING ASSISTANT CALLED [facility] FOR REHABILITATION. THIS SCHEDULING ASSISTANT SPOKE TO RISHABH PEREZ. THIS SCHEDULING ASSISTANT WAS ADVISED THAT THE PT IS ABLE TO EAT BY MOUTH ONCE FOOD IS STEP UP AND THE PT EATS 100% OF HIS MEALS. THIS SCHEDULING ASSISTANT WAS ADVISED THAT PER NURSING NOTES THE PEG TUBE IS ONLY FLUSHED AND MEDS ARE GIVEN BY MOUTH ACCORDING TO THE NURSES NOTE THAT RISHABH PEREZ READ OFF ON THE PHONE. 03/15/19 THE PT PASSED SWALLOW TEST AND ABLE TO EAT BY MOUTH. - ADMISSIONS NOTE PER FACILITY. [facility] WAS ADVISED OF THE PT'S ADMITTING DIAGNOSIS.
--- NOTE | 2019-04-08 19:07 | NUR ---
I HAND DELIVERED EKG DONE IN ER AND HALFWAY PAPERWORK TO [facility]. GIVEN TO RONEN LOPEZ RN.
--- NOTE | 2019-04-08 21:02 | NUR ---
CALLED ED FOR HALF-WAY PAPERS, NOT ABLE TO BE LOCATED. CALLED [facility] AND ASKED FOR MAR TO BE FAXED TO [facility]. MEDS ENTERED ON DAY SHIFT TO RECONCILLIATION, BUT NO FORMS BROUGHT TO FLOOR. LEASE PURCHASE DRIVER PAGED TO BE NOTIFIED OF ADMISSION.
--- NOTE | 2019-04-08 22:21 | NUR ---
NEW ADMIT FROM ED. PT RESIDENT [facility] APAHSIA CVA L SIDED WEAKNESS HX OF AFIBB/AFLUTTER. TODAY PT N/V HR 120 WENT TO ED. IDENTIFIED UTI AND CARDIZEM BOLUS/ DRIP STARTED IN ED. PT ALERT SITUATION AND SELF, PT HAS DYSPHAGIA, DIFFICULTY ANSWERING HISTORY QUESTIONS. PT HAD URINARY RETENTION ID ED AND STRAIGHT CATHETERIZED. PT DENIES WEARING O2 PER NC AT HOME. PEG TUBE INTACT, FLUSHED. PER HISTORY PT TAKES MEDS AND MEALS PO, PEG USED FOR WATER FLUSHES. PT REPORTS HIS BROTHER IS HIS DPOA, PT STATED HE IS A FULL CODE. PT SHARED HISTORY OF DRINKING DAILY ALCOHOL, DIFFICULTY ASSESSING HOW MUCH AND TYPE OF ALCOHOL HE DRINKS DAILY. SKIN INTACT, CALLUS ON R HEEL. DENIES PAIN, OR NAUSEA. PT OBESE, ABD ROUNDED, EDEMA BLE. EDEMA.
--- NOTE | 2019-04-08 23:39 | NUR ---
PT WAS 99% ON 2L, DROPPED TO ROOM AIR WENT TO 88%, NOW ON 1L 96%.
--- NOTE | 2019-04-08 23:52 | NUR ---
RATE ON CARDIZEM DECREASED TO 5MLS.
[2019-04-09] VITALS (13 sets, daily range): BP systolic 108–148; BP diastolic 64–85
--- NOTE | 2019-04-09 01:01 | NUR ---
CARDIZEM DRIP STOPPED, BP AND HR STABLE, WILL MONITOR FOR CHANGE.
[2019-04-09] MEDS ORDERED: PROTONIX40 M4 PO (01:33)
[2019-04-09 04:18] LABS: HEMATOCRIT 42.9 % (42.0-52.0); HEMOGLOBIN 13.7 gm/dL (14.0-18.0); MCH 28.4 pg (26.0-34.0); MCHC 31.9 g/dL (28.0-37.0); MCV 89.2 fL (80.0-100.0); RBC 4.81 mil/uL (4.50-6.00); RDW 14.5 % (10.5-14.5); WBC 4.7 thou/uL (4.0-11.0)
[2019-04-09 04:54] LABS: CALCIUM 8.7 mg/dL (8.5-10.1); CREATININE 0.7 mg/dL (0.7-1.3)
[2019-04-09] MEDS ORDERED: DILTIAZEM 24HR240 M1 PO (07:39)
[2019-04-09] MEDS ORDERED: JEVITY 1.2 CAL237 ML PER TUBE (10:08)
--- NOTE | 2019-04-09 11:41 | EKG ---
[place] [address] [facility] [place] [address] ELECTROCARDIOGRAM REPORT Name: LUIS ARMANDO DAVIES Room #: 351-P ADM IN M.R.#: [id number] Admission: 04/08/19 Attend Phys: Stephan Marsh MD Discharge: Date of : 60 Report #: [id number] THIS REPORT FOR: //name// [facility] ED Test Date: 2019-04-08 Test Time: 13:16:51 Pat Name: LUIS ARMANDO DAVISE Department: Room: [facility] Gender: M Sanitation Director: EZ : 1960 Requested By: Brock Dodd Order Number: [id number] MD: Kishan Joseph Measurements Intervals [place] Rate: 129 P: LA: QRS: 56 QRSD: 119 T: 255 QT: 364 QTc: 534 Interpretive Statements Atrial flutter with variable AV block Nonspecific ST and T wave abnormality Compared to ECG 03/13/2019 14:06:22 Heart rate has slowed Electronically Signed On 04-09-2019 11:40:52 PAY STATION COLLECTOR by Kishan Joseph [email or web address] <ELECTRONICALLY SIGNED> By: Kishan Joseph MD, [facility] 04/09/19 1140 1316 Kishan Joseph MD, [facility] /EPI
--- NOTE | 2019-04-09 17:55 | NUR ---
PT IN CONTROLLED AFLUTTER...STARTED PO CARDIZEM AND TURNED IV CARDIZEM OFF AROUND 1230...HAS MAINTAINED HR @ 85...
[2019-04-10] VITALS (7 sets, daily range): BP systolic 118–158; BP diastolic 73–96
--- NOTE | 2019-04-10 04:06 | NUR ---
Received pt. on 1L/NC then RT titrated O2 off. Tolerating room air well with O2 sat in the upper 90's and no respiratory distress. A flutter with controlled rate. He has been repositioned for comfort. Abdomen bloated and firm at beginning of shift. Bowel sounds hypoactive. Peg tube connected to dependent drainage bag. Abdomen deflated some with air in the dge bag. After letting the air out , brown and green dge started to come out. Had a total of 950 ml this shift. SMALL LOT OPERATOR notified of above. Pt. kept NPO for now. Incontinent of bladder x1 , male external cath replaced and had 200 ml out this shift. Bladder scanned and reads 177 ml. Incontinent of loose bm x3 this shift ( had laxatives during the day ). Abdomen is softer and not distended this am. Bed alarm on for safety. Will continue to monitor.
--- NOTE | 2019-04-10 13:34 | NUR ---
DISCHARGE PLANNING. PATIENT RESIDES AT [facility]. PLAN IS FOR PATIENT TO DISCHARGE BACK TO [facility] ONCE MEDIALLY READY. POSSIBLE DISCHARGE PLANNED FOR TOMORROW. CALL PLACED TO [facility] LIAISON TO NOTIFY. CLINICAL UPDATES FAXED TO HER. FOLLOWING.
--- NOTE | 2019-04-10 14:35 | NUR ---
INITIAL ASSESSMENT: Received consult. KATHERINE reviewed chart and spoke with nursing and attending physician. Pt was admitted from [facility] due to A-flutter. Pt with hx of CVA with left-sided hemiparesis. Pt to have KUB today and restart tube feeding. Discharge back to [facility] is anticipated for tomorrow. Pt is non-verbal. KATHERINE spoke with pt's brother, Geraldo, via phone. Introduced role of KATHERINE. Pt's brother lives in [place]. Local friends check on pt at the facility. Pt's brother had questions about the care pt receives at the facility. KATHERINE offered to have [facility] liaison contact him to discuss his questions/concerns. Pt's brother agreeable. Plan is for pt to return to [facility] when medically stable. liaison planner to fax clinical info to facility for review. KATHERINE contacted liaison to follow up with pt's brother. Pt should have active [place]-Medicaid as secondary insurance. KATHERINE faxed face sheet from previous hospital stay to registration to verify and left voice message for Kellie. KATHERINE is following to assist as needed with discharge planning.
--- NOTE | 2019-04-10 19:46 | NUR ---
PT IS FROM [facility]...PLANS TO [place] TO MED SURG LATER TODAY WHEN BED AVAILABLE...TELE AFLUUTER CONTROLLED...ROCEPHIN STARTED TODAY FOR UTI...LARGE BM AFTER MAG CITRATE GIVEN...NO EMESIS...
--- NOTE | 2019-04-11 02:37 | NUR ---
PT IS ADMIT FROM [facility] AT 2100.PT IS A/O X3.PT IS FROM [facility].PT HAS LT SIDED WEAKNESS FROM CVA STROKE.PT IS INCONTINENT TO B/B AMD HAS AN EXTERNAL CATHETER IN PLACE.PT IS ON BEDREST WITH MAX X2 ASSIST.PT HAS A PEG TUBE.PT HAS BLE EDEMA AND SCDS.WILL CONTINUE POC PER PT POC
[2019-04-11 04:35] VITALS: BP 143/96
[2019-04-11] MEDS ORDERED: MIRALAX119 GM PO (09:32)
[2019-04-11] MEDS ORDERED: DULCOLAX STOOL100 M1 PO (09:32)
[2019-04-11] MEDS ORDERED: KEFLEX500 M2 PO (09:38)
[2019-04-11 16:29] VITALS: BP 134/91
[2019-04-11 17:59] VITALS: BP 134/91
--- NOTE | 2019-04-11 20:32 | NUR ---
ASSUMED CARE OF PT AT APPROX 0700. PT IS ALERT AND ORIENTED X3. RECIEVED IN REPORT THAT PT IS NON VERBAL. PT IS VERBAL. WILL ANSWER QUESTIONS AND CARRY ON SMALL CONVERSATION. ASSESSMENT CHARTED. NAD NOTED DURING SHIFT. BED BATH GIVEN. TURNING OFTEN FOR SKIN INTEGRITY. RECIEVED DC ORDERS. CALLED FACILITY LEFT MESSAGE. PT AWARE RETURNING. LEFT VIA STRETCHER VAN AT SHIFT CHANGE. NAD NOTED.
== END 2019-04-11 18:59 | DRG 309 ==
LOC: ER 13:09 → EROBS 16:52 → 3W 16:52 → 4W 04-10 20:55
PROVIDERS: Emergency Medicine; ADMIT Hospitalist
DX: I48.92 Unspecified atrial flutter (principal); N39.0 Urinary tract infection, site not specified; I69.354 Hemiplegia and hemiparesis following cerebral infarction affecting left non-dominant side; K59.00 Constipation, unspecified; Z96.641 Presence of right artificial hip joint; N18.9 Chronic kidney disease, unspecified; I48.91 Unspecified atrial fibrillation; E78.5 Hyperlipidemia, unspecified; I12.9 Hypertensive chronic kidney disease with stage 1 through stage 4 chronic kidney disease, or unspecified chronic kidney disease; E11.42 Type 2 diabetes mellitus with diabetic polyneuropathy; F32.9 Major depressive disorder, single episode, unspecified; R13.10 Dysphagia, unspecified; E11.22 Type 2 diabetes mellitus with diabetic chronic kidney disease; R14.0 Abdominal distension (gaseous); Z95.828 Presence of other vascular implants and grafts; I69.320 Aphasia following cerebral infarction; I69.321 Dysphasia following cerebral infarction; Z95.0 Presence of cardiac pacemaker; Z93.1 Gastrostomy status; Z68.34 Body mass index [BMI] 34.0-34.9, adult
CPT/HCPCS: 10047; 10879

== ENCOUNTER → 2019-06-06 | Outpatient (CLI) | payer OTHER ==
[~2019-06-06] MED LIST changes: +DILTIAZEM 24HR240 M1 PO; +DULCOLAX STOOL100 M1 PO; +JEVITY 1.2 CAL237 ML PER TUBE; +KEFLEX500 M2 PO; +MIRALAX119 GM PO; +PROTONIX40 M4 PO
== END ==
LOC: SJCVC 09:39
DX: I48.3 Typical atrial flutter (principal); I44.30 Unspecified atrioventricular block; R94.31 Abnormal electrocardiogram [ECG] [EKG]; I12.9 Hypertensive chronic kidney disease with stage 1 through stage 4 chronic kidney disease, or unspecified chronic kidney disease; N18.9 Chronic kidney disease, unspecified; E78.5 Hyperlipidemia, unspecified; F17.200 Nicotine dependence, unspecified, uncomplicated; Z79.899 Other long term (current) drug therapy; Z79.82 Long term (current) use of aspirin

== ENCOUNTER 2019-07-19 13:29 | Inpatient (IN) | payer OTHER ==
[~2019-07-19] VITALS: Ht 170.2 cm; Wt 100.3 kg
[2019-07-19 13:30] VITALS: BP 165/113
[2019-07-19 14:09] LABS: ABSOLUTE NEUTROPHILS 12.8 thou/uL (1.4-8.2); BASOPHILS 0.4 % (0.0-2.0); HEMATOCRIT 51.4 % (42.0-52.0); HEMOGLOBIN 16.5 gm/dL (14.0-18.0); LYMPHOCYTES 7.8 % (24.0-44.0); MCH 27.6 pg (26.0-34.0); MCV 86.2 fL (80.0-100.0); MONOCYTES 4.3 % (1.0-8.0); PLATELET COUNT 340 thou/uL (150-400); POLYS 87.5 % (36.0-66.0); RBC 5.96 mil/uL (4.50-6.00); RDW 15.5 % (10.5-14.5); WBC 14.6 thou/uL (4.0-11.0)
[2019-07-19 14:16] LABS: CALCIUM 10.3 mg/dL (8.5-10.1); CREATININE 1.1 mg/dL (0.7-1.3); POTASSIUM 3.3 mmol/L (3.5-5.1)
[2019-07-19 14:22] LABS: ALBUMIN 4.4 g/dL (3.4-5.0); TOTAL BILIRUBIN 0.8 mg/dL (<0.1-1.0); TOTAL PROTEIN 10.2 g/dL (6.4-8.2)
[2019-07-19 16:24] VITALS: BP 154/100
[2019-07-19 16:57] VITALS: BP 151/100
[2019-07-19 17:51] VITALS: BP 154/96
[2019-07-19 19:43] VITALS: BP 166/96
--- NOTE | 2019-07-19 20:11 | NUR ---
NEW PATEINT SANA FROM ED FOR SMO- ALERT X3 FROM [facility]. NPO WITH NG TUBE TO LIS TO RIGHT NARE. ORDERS FOR GARCIA CATHERETER. ORDER FOR NS. 8L FACE MASK. ADMISSION ASSESMENT, HISTORY , AND EDUCATIONS COMPLETED. MED RECS DOEN IN ER. CALL LIGHT IN REACH. BED LOCKED. PT HAS HX OF CVA WITH LEFT SIDE WEAKNESS. PEG TUBE, AND WHEELCHAIR BOUND.
[2019-07-19 23:38] VITALS: BP 140/91
[2019-07-20 04:26] VITALS: BP 138/89
[2019-07-20 05:15] LABS: MCH 28.2 pg (26.0-34.0); MCHC 32.4 g/dL (28.0-37.0); MCV 87.1 fL (80.0-100.0); RBC 4.82 mil/uL (4.50-6.00); WBC 10.7 thou/uL (4.0-11.0)
[2019-07-20 05:57] LABS: HEMOGLOBIN 13.6 gm/dL (14.0-18.0)
[2019-07-20 06:08] LABS: CREATININE 0.7 mg/dL (0.7-1.3)
[2019-07-20 06:29] LABS: CALCIUM 8.3 mg/dL (8.5-10.1)
[2019-07-20 06:30] LABS: POTASSIUM 2.8 mmol/L (3.5-5.1)
--- NOTE | 2019-07-20 06:45 | NUR ---
PATIENT SLEPT PART OF SHIFT. DROWSY THIS AM BUT AROUSABLE, ANSWERS YES NO QUESTIONS. ORIENTED TO SELF, ALL TIMES, ORIENTED TO PLACE AND SITUATION AT TIMES. KEPT STATOR PLATE WASHER INFORMED OF HEART RATE IN THE 120'S AND RHYTHM OF AFLUTTER. IVP MEDICATIONS GIVEN NEEDED. DR. ZARATE HERE THIS AM AND INFORMED OF RYTHM, BP, NG OUTPUT, AND OVERNOC STATUS. NO NEW ORDERS TO FOLLOW. CONTINUE TO MONITOR NG OUTPUT, N/V. NO BP THIS SHIFT.
[2019-07-20 07:53] VITALS: BP 134/84
[2019-07-20 09:57] VITALS: BP 116/48
--- NOTE | 2019-07-20 10:03 | EKG ---
[facility] [place] [address] ELECTROCARDIOGRAM REPORT Name: LUIS ARMANDO DAVIES Room #: 213-P ADM IN M.R.#: [id number] Admission: 07/19/19 Attend Phys: Stephan Marsh MD Discharge: Date of : 60 Report #: [id number] THIS REPORT FOR: cc: Carlos A Whitaker MD, Shyam MD Lundgren,Kishan Schumacher MD [facility] ~ THIS REPORT FOR: //name// [facility] Test Date: 2019-07-20 Test Time: 08:37:35 Pat Name: LUIS ARMANDO DAVIES Department: Room: 213 P Gender: M Talent Management Manager: Dixie ALONSO : 1960 Requested By: Amber Renteria Order Number: [id number] MD: Kishan Joseph Measurements Intervals [place] Rate: 125 P: 259 MN: 281 QRS: -12 QRSD: 158 T: 89 QT: 316 QTc: 456 Interpretive Statements Atrial flutter with 2:[address] and T wave abnormality Compared to ECG 04/08/2019 13:16:51 No significant change was found Electronically Signed On 07-20-2019 10:02:02 CDT by Kishan Joseph [email or web address] <ELECTRONICALLY SIGNED> By: Kishan Joseph MD, FACC 07/20/19 1002 0837 0837 Kishan Joseph MD, FACC /EPI
[2019-07-20 11:09] VITALS: BP 147/98
--- NOTE | 2019-07-20 14:38 | NUR ---
TOOK OVER CARE AT 0700. PT ASLEEP IN BED, EASILY AROUSABLE, CALL LIGHT BY RIGHT HAND, PT DEMONSTRATES PROPER USE, ASSESSED, VSS EXCEPT HR HIGH, GAVE HEART MEDS TO HELP, NGT TO LOW INT. SUCTION, PT STATES "NO" WHEN ASKED IF HAVING PAIN, PT'S BROTHER CALLED FOR UPDATE, REVIEWED POC, WILL MONITOR. REPORT GIVEN TO JUSTINA AT 1415.
[2019-07-20 15:28] VITALS: BP 138/93
--- NOTE | 2019-07-20 16:41 | NUR ---
Chart reviewed and discussed with the care team. Nursing has updated the pt's bro/dpoa clinically. The pt is well known to from multiple admissions this past year. He is a skilled nursing care resident at [facility]. His bro/dpoa Geraldo lives out of state but available via phone. Message left for the facility liason to confirm they are holding his bed. He is being treated for SBO. NG in place and surgery consulted. The pt has a hx of a stroke and is cared for at a bed level/ up to a markell chair at the facility. He is aphasic but can say some words. Will fax an update to the facility and confirm his bed hold. All parties anticipating dc back to the longterm when medically cleared.
--- NOTE | 2019-07-20 18:12 | NUR ---
RECEIVED PT'S CARE AROUND 1500; PT. ON BED; ALERT TO PERSON & PLACE; NO C/O PAIN; AFIB ON THE MONITOR; 120s-130s; PHYSICIAN NOTIFIED; ORDERS RECEIVED; NO ANTICOAGULANT ON EMAR; PHYSICIAN NOTIFIED; NO NEW ORDERS; D5 RUNNING AT 125 ML/H; MG 1.7; PHYSICIAN NOTIFIED; ORDERS RECEIVED; CARE UPDATE TO CCT; BLOOD SUGARS Q6H; SCHEDULED MEDICATION GIVEN; HR ON THE 100s; SBP ABOVE 100; MONITORING; TURNED FROM SIDE TO SIDE; ASSESSMENT CHARGED; FOLLOWING POC; WILL PASS ON REPORT;
[2019-07-20 20:03] VITALS: BP 141/92
[2019-07-21 00:02] VITALS: BP 132/94
[2019-07-21 03:19] VITALS: BP 149/99
[2019-07-21 04:51] LABS: CALCIUM 8.4 mg/dL (8.5-10.1); CREATININE 0.7 mg/dL (0.7-1.3); POTASSIUM 3.1 mmol/L (3.5-5.1)
--- NOTE | 2019-07-21 05:40 | NUR ---
RESTED QUIETLY THROUGHOUT NOC. COMPLAINTS OF NAUSEA X1 AND ZOFRAN GIVEN. NG OUTPUT 350CC BROWN LIQUID. ASSISTED TO REPOSTION FOR COMFORT AND SKIN CARE. DOES REFUSE TO TURN AT TIMES. WORKING ON GOALS AND PLAN OF CARE FOR NOC. TELEMETRY SHOWS AFIB/FLUTTER RATE 80'S - 120'S. MOT PROGRESSING TOWARDS DISCHARGE GOALS AT THIS TIME. CONTINUE TO ASSES CLOSELY.
[2019-07-21 07:30] VITALS: BP 138/98
[2019-07-21 10:03] LABS: URINE BLOOD 3+ (Negative); URINE CLARITY SL CLOUDY; URINE COLOR YELLOW; URINE GLUCOSE-RANDOM* NEGATIVE (Negative); URINE KETONES NEGATIVE (Negative); URINE NITRITE-REFLEX NEGATIVE (Negative); URINE PROTEIN (DIPSTICK) 1+ (Negative); URINE UROBILINOGEN >= 8.0 E.U./dl (0.2-1.0)
[2019-07-21 10:04] LABS: ICTOTEST (BILI CONFIRMATORY) Negative (Negative); URINE BILIRUBIN NEGATIVE (Negative); URINE LEUKOCYTES-REFLEX 1+ (Negative)
[2019-07-21 10:11] LABS: CRYSTALS None Seen /LPF (None Seen); MUCUS 0-3 Light strn/LPF (None Seen); SQUAMOUS 0-3 Few /LPF (0-3); URINE RBC >20 Many /HPF (0-2)
[2019-07-21 10:12] LABS: CASTS None Seen /LPF (None Seen); URINE WBC-REFLEX 6-15 Few /HPF (0-5)
[2019-07-21 12:00] VITALS: BP 120/84
--- NOTE | 2019-07-21 12:09 | NUR ---
Case discussed with the care team. No weekend dc anticipated. [facility] liason updated. They are holding his bed and can accept him back to ltc when medically cleared for dc.
--- NOTE | 2019-07-21 17:53 | NUR ---
RECEIVED PT'S CARE AROUND 709; PT. ON BED; RESTING WITH EYES CLOSED; EQUAL CHEST RISING NOTICED; AFIB ON THE MONITOR; ABOVE 100s; SCHEDULED MEDICATION GIVEN EARLIER; DURING ASSESSMENT PT. ALERT TO PERSON & PLACE; NO C/O PAIN; INCREASED COARSE LISTEN OVER LUNGS; INCREASE SPUTUM; PHYSICIAN NOTIFIED DURING ROUNDING; NO NEW ORDERS; POTASSIUM 3.1; PHYSICIAN NOTIFIED DURING ROUNDING; REPLACED IT; ORDERS ON PLACE FOR IV CARDIZEM GTT; MEDICATION STARTED; HR THROUGH THE DAY BELOW 100s; SBP ABOVE 100s; FLUIDS' RATE DECREASE TO 100 ML/H; PER LAB NO URINE SAMPLE; SAMPLE SENT; HOSPITALIST NOTIFIED ABOUT UA RESULTS; TURNED FROM SIDE TO SIDE THROUGH THE DAY; LATER ON THE DAY NG TUBE DRESSING LOOSE; NG TUBE REPOSITIONED; DRESSING CHANGED; X-RAY ORDER PER PROTOCOL; NG TUBE PULLED TO 74 CM BACK; RESULTS NOTIFIED TO PHYSICIAN; NO ANSWER BACK; 02 SAT ABOVE 93%; O2 TITRATE TO RA; MONITORING; DR. ZARATE ROUNDING DURING THE AFTERNOON; NOTIFIED ABOUT NG TUBE OUTPUT; ASSESSMENT CHARGED; FOLLOWING POC; WILL PASS ON REPORT;
[2019-07-21 20:15] VITALS: BP 125/91
[2019-07-22 00:17] VITALS: BP 156/90
[2019-07-22 03:27] VITALS: BP 142/91
--- NOTE | 2019-07-22 04:50 | NUR ---
PROGRESS PT A/O X3 TO 4. TELEMETRY INTACT READING CHRONIC AFIB/AFLUTTER HEART RATE INCREASED BRIEFLY TO 150'S AND CARDIZIEM DRIP INCREASED TO 20 CC/HR AND HEART RATE IS DECREASING TO 100'S REPORTS NO SOB OR CHEST PAIN. NG TO RIGHT NARE TO LIWS DRAINING DARK GREEN FLUID. GARCIA IN PLACE DRAINING CLEAR YELLOW URINE. PT REFUSES ORAL CARE. PLACED ON 2 LITERS O2 VIA NC FOR INCREASED HEART RATE AND HX OF SLEEP APNEA TOLERATING WELL.IV IN RW INTACT NO S/S OF INFILTRATION NOTED IVF'S INFUSING ORDERED. ACCUCHECKS CONTINUE Q6HRS PER PROTOCOL. ABDOMEN DISTENDED SLIGHTLY FIRM TENDER TO PALPATION WITH VERY HYPOACTIVE BS NOTED IN RUQ REMAINING QUADS WITH ABSENT BS. PEG TUBE INTACT . REPOSITIONED ORDERED PT DOES REFUSE REPOSITIONING OCCASIONALLY. BUT AGREEABLE WITH EDUCATION. CONSULTED TRYING TO R/O ILEUS VS SBO CONTINUE TO MONITOR.
[2019-07-22 06:01] LABS: HEMATOCRIT 41.9 % (42.0-52.0); HEMOGLOBIN 13.9 gm/dL (14.0-18.0); MCH 28.4 pg (26.0-34.0); MCHC 33.1 g/dL (28.0-37.0); MCV 85.8 fL (80.0-100.0); RBC 4.89 mil/uL (4.50-6.00); WBC 7.6 thou/uL (4.0-11.0)
[2019-07-22 06:05] LABS: CREATININE 0.7 mg/dL (0.7-1.3)
[2019-07-22 06:06] LABS: POTASSIUM 2.6 mmol/L (3.5-5.1)
[2019-07-22 07:20] VITALS: BP 142/82
[2019-07-22 11:20] VITALS: BP 126/73
--- NOTE | 2019-07-22 14:37 | NUR ---
ASSUMED CARE 0700. ALERT X4, DENIES PAIN, DENIES SOB, AFIB ON TELE CONTROLED ON CARDIZEN DRIP 20ML. POTASSIUM REPLACED PER ORDERED. PICC LINE ORDERED. COMPLAINT WITH CARES. NG TUBE TO RIGHT NARE WITH MINIMUM OUTPUT AT THIS TIME. GARCIA PATIENT WITH GOOD OUTPUT. CALL LIGHT IN REACH. FALL PRECAUTION IN PLACE. CONTINUE TO MONITOR
[2019-07-22 16:00] VITALS: BP 136/93
--- NOTE | 2019-07-22 16:06 | NUR ---
POTASSIUM: PT'S HAVING K+ REPLACED TODAY, LAST BAG WAS HUNG; NOT RUNNING, RESTARTED WHICH MAKES THE LAB DRAW LATER IN EVENING
--- NOTE | 2019-07-22 16:41 | NUR ---
VAT CONSULTED FOR CL ON THIS PT. A 4FRDBL PLACED IN RT IJ, CXR CONFIRMS TIP JUST BELOW THE CAJ, LINE IS IN GOOD POSITION FOR USE PER THE INS/NICOLE STANDARDS OF CARE. FOR DETAILS PLEASE SEE THE INSERTION NI
[2019-07-22 20:00] VITALS: BP 143/86
[2019-07-22 20:31] LABS: CALCIUM 9.1 mg/dL (8.5-10.1); CREATININE 0.8 mg/dL (0.7-1.3); POTASSIUM 3.3 mmol/L (3.5-5.1)
[2019-07-23] VITALS: BP 142/81
[2019-07-23 04:22] VITALS: BP 159/93
[2019-07-23 05:14] LABS: CALCIUM 9.4 mg/dL (8.5-10.1); CREATININE 0.7 mg/dL (0.7-1.3); MAGNESIUM 1.6 mg/dL (1.8-2.4)
--- NOTE | 2019-07-23 06:39 | NUR ---
SLEPT MOST OF SHIFT. NOT PROGRESSING TOWARDS DISCHARGE GOALS. NG REMAINS IN PLACE WITH DARK GREEN LIQUID WITH BLACK FLECKS. WORKING ON GOALS AND PLAN OF CARE FOR NOC. TURNED EVERY 2-3 HOURS FOR COMFORT AND SKIN CARE. PATIENT SPIT LARGE AMOUNTS OF SPUTUM ON FLOOR. REINFORCE TO SPIT BASIN AND TISSUES. WILL REINFORCE NEEDED. CONTINUE TO ASSES CLOSELY.
[2019-07-23 06:47] LABS: HEMATOCRIT 44.9 % (42.0-52.0); HEMOGLOBIN 14.7 gm/dL (14.0-18.0); MCH 28.3 pg (26.0-34.0); MCHC 32.7 g/dL (28.0-37.0); MCV 86.6 fL (80.0-100.0); RBC 5.18 mil/uL (4.50-6.00); RDW 15.2 % (10.5-14.5); WBC 7.9 thou/uL (4.0-11.0)
[2019-07-23 08:46] VITALS: BP 137/79
[2019-07-23 13:01] VITALS: BP 148/94
[2019-07-23 16:34] VITALS: BP 134/78
--- NOTE | 2019-07-23 16:57 | NUR ---
ASSUMED CARE PT SHIFT CHANGE. ASSESSMENTS CHARTED.MEDS GIVEN PER JUN. PT ALERT, ORIENTEDTO PERSON & PLACE, PT IS FORGETFUL. VSS. O2 SATS WNL ON ROOM AIR. PT BEDREST, Q2 TURNS TOLERATED. NG TUBE CONTINUES TO BE CONNCECTED TO INTERMITTENT SUCTION. PPN ORDER RECEIVED AND RUNNING AT 40ML/HR. CARDIZEM GTT TITRATED NEEDED, CURRENTLY AT 5. PT REMAINS IN AFLUTTER ON MONITOR. NPO PER ORDERS. URINE OUTPUT ADEQUATE. NO BM THIS SHIFT. WILL CONTINUE TO MONTIOR AND FOLLOW POC.
[2019-07-23 19:46] VITALS: BP 129/106
[2019-07-24 00:14] VITALS: BP 145/97
--- NOTE | 2019-07-24 03:32 | NUR ---
ASSESSMENT DOCUMENTED.PT BEEN RESTING IN NO ACUTE DISTRESS.A/OX2,FORGEFUL FOLLOWS COMMANDS APPROPRIATELY.H/O CVA WITH LEFT SIDED WEAKNESS/FLACCID,DYSHAGIA.ON RA W/O RESP DISTRESS.ON MONITOR AFLUTTER W/HR SPIKING TO 100S AT SOMETIMES.ON CARDIZEM DRIP.PPN AT 4OCC/HR.PEG SITE CARE COMPLETED.GARCIA DD,NG TUBE TO LIS.TURNED AND REPOSITIONED Q2H.ORAL CARE COMPLETED.PT KEEPS SPITTING UP ON THE FLOOR,EDUCATED ON IMPORTANCE OF SPITTING ON TISSUES AND PLACE ON A BUCKET.SUCTION SET UP.PT DENIES ANY NEEDS AT THIS TIME.WILL CONT TO MONITOR PER POC.
[2019-07-24 04:57] VITALS: BP 169/94
[2019-07-24 04:58] LABS: HEMATOCRIT 45.5 % (42.0-52.0); HEMOGLOBIN 14.4 gm/dL (14.0-18.0); MCH 27.8 pg (26.0-34.0); MCHC 31.7 g/dL (28.0-37.0); MCV 87.9 fL (80.0-100.0); RBC 5.18 mil/uL (4.50-6.00); RDW 15.2 % (10.5-14.5); WBC 8.5 thou/uL (4.0-11.0)
[2019-07-24 05:12] LABS: CREATININE 0.5 mg/dL (0.7-1.3); POTASSIUM 3.5 mmol/L (3.5-5.1)
[2019-07-24 08:00] VITALS: BP 138/98
--- NOTE | 2019-07-24 11:41 | NUR ---
Nutrition: REC increase PPN to 80 mL/hr and add 500 mL 20% lipids daily to meet 58-100% of needs til SBO resolved.
[2019-07-24 12:00] VITALS: BP 144/110
[2019-07-24 16:00] VITALS: BP 148/98
--- NOTE | 2019-07-24 18:38 | NUR ---
ASSUMED CARE OF PT AT SHIFT CHANGE. ASSESSMENTS CHARTED. MEDS GIVEN PER MAR. PT ALERT TO SELF AND PLACE. PT WENT FOR SMALL BOWEL SERIES IN XRAY. NOW PASSING GAS, NO BM. NG ON LOW INT SUCTION. CARDIZEM INFUSING AT 10, HR IN LOW 100S. WILL CONTINUE TO MONITOR AND FOLLOW POC.
[2019-07-24 20:12] VITALS: BP 142/96
--- NOTE | 2019-07-24 22:56 | NUR ---
PT'S HEART RATE RUNNING IN 130'S CHARGE NURSE TITRATING CARDIZIEM DRIIP RUNNING AT 5 ML'S/HR AND INCREASED TO 10 ML'S TO CONTINUE TO MONITOR HEART RATE AND TITRATE DRIP PER PROTOCOL.
[2019-07-25] VITALS: BP 156/111
[2019-07-25 05:04] VITALS: BP 137/96
[2019-07-25 07:20] VITALS: BP 135/96
--- NOTE | 2019-07-25 07:45 | NUR ---
PROGRESS PPN CONTINUES, IV FLUIDS AND ACCUCHECKS CONTINUE PT HAD 4 LARGE LIQUID BROWNISH STOOLS, VOIDING QS. DOESN'T USE CALL LIGHT JUST YELLS OUT FOR HELP. LEFT SIDE FLACCID FROM OLD CVA CONTINUE TO MONITOR CARDIZIEM DRIP FOLLOW PARAMETERS TO KEEP HEART RATE IN PROPER RANGE.
--- NOTE | 2019-07-25 09:44 | NUR ---
CALLED PATIENTS PENITENTIARY TO CLARIFY WHETHER PATIENTS DIET. INQUIRED TO WHETHER HE WAS STRICTLY FED PER PEG TUBE, OR WAS TAKING IN NUTRITION BY MOUTH. NURSE STATED THAT PATIENT HAD SIGNED A WAIVER STAING THAT HE DECLINED PEG TUBE FEEDINGS, AND THAT HE ONLY WANTED PILLS AND FOOD BY MOUTH. WILL RELAY THIS INFORMATION TO DR GARZA.
[2019-07-25 11:20] VITALS: BP 130/92
--- NOTE | 2019-07-25 15:52 | NUR ---
tenative plan return to [facility] in am. Updated liason.
[2019-07-25 17:00] VITALS: BP 123/80
[2019-07-25 20:32] VITALS: BP 121/80; BP 121/809; BP 126/73
--- NOTE | 2019-07-26 04:48 | NUR ---
ASSUMED PT CARE AT 1900. PT IS ALERT BUT FORGETFUL. NO SIGN OF DISTRESS NOTED IN PT. PEG TUBE IN PLACE. FALL PRECAUTION IN PLACE. CALL LIGHT WITHIN REACH. PT IS STABLE. LOOSE STOOL NOTED. ASSESSMENT COMPLETED AND DOCUMENTED. PAIN MED ADMINISTERED TO PT. PT IS STILL IN A-FLUTTER, CARDIZEM DRIP IN PLACE. SCHEDULED MEDS ADMINISTERED TO PT. TOLERATED PO INTAKE. CARDIZEM IN HOLD DUE TO LOW HEART RATE, STILL IN A-FLUTTER. GARCIA IN PLACE. CONTINUE TO MONITOR PATIENT. DENIES ANY FURTHER NEEDS AT THIS TIME.
[2019-07-26 05:35] VITALS: BP 12/61
[2019-07-26 08:00] VITALS: BP 120/82
--- NOTE | 2019-07-26 09:39 | NUR ---
FAXED CLINICAL UPDATE TO [facility] 07/24 RECEIVED CONFIRMATION AND SPOKE WITH [facility] RECEIVED UPDATE. DP TO FOLLOW.
--- NOTE | 2019-07-26 11:27 | NUR ---
PT DISCHARGING TODAY TO [facility] FAXED DC ORDERS/SUMMARY TO FACILITY SPOKE WITH [facility] IN ADM SHE RECEIVED ORDERS AND ARRANGED TRANSPORT BY [facility] FOR [id number] TODAY. NOTIFIED PT'S BROTHER DPOA (ROSE MARIE) OF DC AND TIME OF TRANSPORT. UNIT NOTIFIED AND CHART COPY PER US. RN TO CALL REPORT TO [phone].
[2019-07-26 11:30] VITALS: BP 116/79
--- NOTE | 2019-07-26 13:34 | NUR ---
ASSUMED CARE OF PT AT SHIFT CHANGE. ASSESSMENT CHARTED. MEDS GIVEN PER MAR. PT ALERT TO SELF. VSS. PT CONTINUES IN AFLUTTER, RATE IN 50-70S. NG TUBE DC'D. TOLERATING REGULAR DIET WELL. GOOD BS, SMALL BM THIS AM. DISCHARGE ORDERS COMPLETE. TRANPORT VIA [facility] TO [facility].
== END 2019-07-26 13:48 | DRG 388 ==
LOC: ER 13:29 → EROBS 15:54 → 2N 15:54
PROVIDERS: Nurse Practitioner Family; Physician Assistant; ADMIT Hospitalist
PROC: 0D9670Z Drainage of Stomach with Drainage Device, Via Natural or Artificial Opening (ICD-10-PCS; principal; 2019-07-19)
DX: K56.600 Partial intestinal obstruction, unspecified as to cause (principal); N17.0 Acute kidney failure with tubular necrosis; E87.0 Hyperosmolality and hypernatremia; I69.354 Hemiplegia and hemiparesis following cerebral infarction affecting left non-dominant side; N18.9 Chronic kidney disease, unspecified; I48.91 Unspecified atrial fibrillation; I69.321 Dysphasia following cerebral infarction; E78.5 Hyperlipidemia, unspecified; E11.22 Type 2 diabetes mellitus with diabetic chronic kidney disease; K57.90 Diverticulosis of intestine, part unspecified, without perforation or abscess without bleeding; I12.9 Hypertensive chronic kidney disease with stage 1 through stage 4 chronic kidney disease, or unspecified chronic kidney disease; F32.9 Major depressive disorder, single episode, unspecified; E86.0 Dehydration; E11.42 Type 2 diabetes mellitus with diabetic polyneuropathy; E87.6 Hypokalemia; F17.210 Nicotine dependence, cigarettes, uncomplicated; Z95.828 Presence of other vascular implants and grafts; I69.320 Aphasia following cerebral infarction; Z95.0 Presence of cardiac pacemaker; Z93.1 Gastrostomy status; Z86.14 Personal history of Methicillin resistant Staphylococcus aureus infection; Z79.82 Long term (current) use of aspirin; Z79.899 Other long term (current) drug therapy
CPT/HCPCS: 10081; 10797

== ENCOUNTER 2019-08-09 14:41 | Inpatient (IN) | payer OTHER ==
[~2019-08-09] VITALS: Ht 182.9 cm; Wt 94.6 kg
[2019-08-09 14:41] VITALS: BP 117/78
[2019-08-09 15:10] LABS: ABSOLUTE NEUTROPHILS 8.9 thou/uL (1.4-8.2); BASOPHILS 0.4 % (0.0-2.0); EOSINOPHILS 0.1 % (0.0-3.0); HEMATOCRIT 48.6 % (42.0-52.0); HEMOGLOBIN 16.4 gm/dL (14.0-18.0); MCH 28.8 pg (26.0-34.0); MCHC 33.7 g/dL (28.0-37.0); MCV 85.3 fL (80.0-100.0); MONOCYTES 4.2 % (1.0-8.0); PLATELET COUNT 485 thou/uL (150-400); POLYS 84.3 % (36.0-66.0); RDW 15.6 % (10.5-14.5); WBC 10.5 thou/uL (4.0-11.0)
[2019-08-09 15:20] LABS: ANION GAP 11 mmol/L (7-16); BUN 21 mg/dL (7-18); CALCIUM 9.9 mg/dL (8.5-10.1); CHLORIDE 100 mmol/L (98-107); CO2 28 mmol/L (21-32); CREATININE 2.3 mg/dL (0.7-1.3); GLUCOSE 123 mg/dL (74-106); POTASSIUM 3.1 mmol/L (3.5-5.1); SODIUM 139 mmol/L (136-145)
[2019-08-09 15:30] LABS: ALBUMIN 4.2 g/dL (3.4-5.0); SGOT 13 U/L (15-37); SGPT 24 U/L (30-65); TOTAL BILIRUBIN 0.5 mg/dL (<0.1-1.0); TOTAL PROTEIN 10.1 g/dL (6.4-8.2); TROPONIN-I <0.06 ng/mL (<0.06)
[2019-08-09 18:11] VITALS: BP 102/72
[2019-08-09 18:19] LABS: URINE BILIRUBIN NEGATIVE (Negative); URINE BLOOD 2+ (Negative); URINE CLARITY SL CLOUDY; URINE COLOR YELLOW; URINE GLUCOSE-RANDOM* NEGATIVE (Negative); URINE KETONES NEGATIVE (Negative); URINE NITRITE-REFLEX NEGATIVE (Negative); URINE PROTEIN (DIPSTICK) 1+ (Negative); URINE SPECIFIC GRAVITY <= 1.005 (1.005-1.035); URINE UROBILINOGEN 0.2 E.U./dl (0.2-1.0)
[2019-08-09 18:21] LABS: URINE LEUKOCYTES-REFLEX 1+ (Negative)
[2019-08-09 18:46] LABS: BACTERIA-REFLEX 1-9 Few /HPF (None Seen); CASTS None Seen /LPF (None Seen); CRYSTALS None Seen /LPF (None Seen); SQUAMOUS None Seen /LPF (0-3); URINE RBC 3-10 Few /HPF (0-2); URINE WBC-REFLEX >25 Many /HPF (0-5)
[2019-08-09 19:00] VITALS: BP 108/66; BP 91/58
[2019-08-09 23:53] VITALS: BP 107/73
[2019-08-10 03:28] VITALS: BP 96/63
--- NOTE | 2019-08-10 04:47 | NUR ---
PT WAS AN ER ADMIT WHO WAS JUST RECENTLY DISCHARGED. PT IS STABLE. PT IS ALERT AND CONFUSED, ORIENTED TO SELF ONLY. DENIES ANY PAIN. PT IS UNABLE TO ANSWER ANY ADMISSION QUESTIONS. ADMISSION ASSESSMENT COMPLETED AND DOCUMENTED. PROTONIX DRIP CONITNOUS. PEG TUBE IS CONNECTED TO TO SUCTION, LOW INTERMITTENT SUCTION. PT HAD A FEW EPISODES OF DIARRHEA. NO EMESIS NOTED. SCHEDULED MEDS ADMINISTERED TO PT. PT IS NPO. CONTINUE TO MONITOR.
--- NOTE | 2019-08-10 07:58 | EKG ---
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 : 1960 Requested By: Estela Robles Order Number: [id number] MD: Kishan Joseph Measurements Intervals [place] Rate: 129 P: -73 NH: 270 QRS: 31 QRSD: 155 T: -88 QT: 381 QTc: 559 Interpretive Statements Atrial flutter with a rapid ventricular response Nonspecific ST and T wave abnormality Compared to ECG 07/20/2019 08:37:35 No significant change was found Electronically Signed On 08-10-2019 7:57:13 CDT by Kishan Joseph [email or web address] <ELECTRONICALLY SIGNED> By: Kishan Joseph MD, [facility] 08/10/19 0757 1501 1501 Kishan Joseph MD, FAC /EPI
[2019-08-10 09:25] LABS: ABSOLUTE NEUTROPHILS 7.8 thou/uL (1.4-8.2); BASOPHILS 0.5 % (0.0-2.0); EOSINOPHILS 1.1 % (0.0-3.0); HEMATOCRIT 41.3 % (42.0-52.0); LYMPHOCYTES 18.5 % (24.0-44.0); MCH 28.2 pg (26.0-34.0); MCHC 32.8 g/dL (28.0-37.0); MONOCYTES 6.4 % (1.0-8.0); PLATELET COUNT 419 thou/uL (150-400); POLYS 73.5 % (36.0-66.0); RBC 4.81 mil/uL (4.50-6.00); RDW 15.4 % (10.5-14.5); WBC 10.6 thou/uL (4.0-11.0)
[2019-08-10 09:31] LABS: HEMOGLOBIN 13.6 gm/dL (14.0-18.0)
[2019-08-10 10:01] LABS: CALCIUM 8.9 mg/dL (8.5-10.1); CREATININE 1.1 mg/dL (0.7-1.3); MAGNESIUM 2.2 mg/dL (1.8-2.4); POTASSIUM 3.3 mmol/L (3.5-5.1)
[2019-08-10 11:15] VITALS: BP 146/42
[2019-08-10 11:24] VITALS: BP 146/42
--- NOTE | 2019-08-10 16:06 | NUR ---
FAXED CLINICAL UPDATE TO [facility] RECEIVED CONFIRMATION AND LEFT MSG WITH [facility] IN ADM. DP TO FOLLOW.
[2019-08-10 16:11] VITALS: BP 135/92
--- NOTE | 2019-08-10 16:39 | NUR ---
Assumed care approx 0700. Assessments as charted. Pt has had episodes of intermittent tachycardia. CV consulted. Additions made to POC. VSS. No signs of distress noted. Pt's brother updated on status this shift. Will continue to monitor.
--- NOTE | 2019-08-10 17:00 | NUR ---
Case opened to follow for dc planning. Pt is well known to cm d/t frequent admissions. He is a ltc resident at [facility] and they are holding his bed. The dc environmental planner has faxed them an update. The pt is disabled from a stroke and is aphasic and non ambulatory. He is up in a markell chair at the facility. His brother Geraldo who lives out of state is his dpoa if needed and available via cell phone. His dtr lives here in [place] and can get updates on him. The pt is being treated for a recurrent SBO. Will follow along and assist with his return to the long term when medically stable.
[2019-08-10 20:06] VITALS: BP 153/90
[2019-08-11 03:03] VITALS: BP 124/88
[2019-08-11 05:48] LABS: CALCIUM 8.9 mg/dL (8.5-10.1); CREATININE 0.7 mg/dL (0.7-1.3)
[2019-08-11 08:00] VITALS: BP 129/88
--- NOTE | 2019-08-11 08:00 | NUR ---
ASSESSMENTS CHARTED, MEDS GIVEN CHARTED. PATIENT RESTING IN BED DURING SHIFT. TURNED CHARTED BY CONTROL AREA OPERATOR. RECEIVING FLUIDS DURING SHIFT. AFLUTTER ON TELEMETRY HEART RATE BETWEEN 100 - 140'S. GIVEN LOPRESSOR PRN POSSIBLE. PEG TUBE TO LOW INTERMITTEN SUCTION. NPO. ACHUCHECK q6. NO COVERAGE NEEDED DURING SHIFT. PATIENT CONTINUES TO SPIT UP AVILEZ THICK SPUTUM. FALL PRECAUTIONS IN PLACE DURING SHIFT. DENIED PAIN.
[2019-08-11 08:18] LABS: HEMATOCRIT 41.3 % (42.0-52.0); HEMOGLOBIN 13.5 gm/dL (14.0-18.0); MCH 28.2 pg (26.0-34.0); MCHC 32.8 g/dL (28.0-37.0); RBC 4.8 mil/uL (4.50-6.00); RDW 15.4 % (10.5-14.5); WBC 8.9 thou/uL (4.0-11.0)
--- NOTE | 2019-08-11 11:28 | NUR ---
PT ASSESSED, VSS, HR RUNS UP TO 130S AT TIMES, GAVE PRN METOPROLOL PER PROTOCOL, CHANGED PT'S POSITION, PT WAS WET/INCONTINENT, CLEANED AND CHANGED HIM, WILL MONITOR.
[2019-08-11 13:50] VITALS: BP 157/106
--- NOTE | 2019-08-11 15:32 | NUR ---
IF PT DISCHARGES OVER WEEKEND PLEASE FAX DC ORDERS/SUMMARY TO [facility] FAX: [phone] AND CALL [phone].
[2019-08-11 16:20] VITALS: BP 133/114
[2019-08-11 19:48] VITALS: BP 153/104
[2019-08-12 05:53] VITALS: BP 147/100
[2019-08-12 07:30] VITALS: BP 147/117
--- NOTE | 2019-08-12 07:58 | NUR ---
ASSUMED CARE OF PT AT SHIFT CHANGE, CONFUSION ON DIET/PEG. OKAY TO RESTART PT'S NORMAL DIET PER ONE PHYSICIAN'S STANDPOINT, LOOKING OVER FACILITIES PAPERWORK SHOWS PO INTAKE. APHASIC. NOTED HR OF 130S OVER STAY HERE, LOPRESSOR FOR PRN USE. PT WILL YELL OUT FOR NEEDS. CALLED FACILITY X 2, NO ANSWER. WILL CONTINUE TO MONITOR AND TURN Q2 FOR COMFORT/SKIN AND CHANGE CHANNELS FOR VARIETY. STRONG MENTAL HYGIENE CONSULTANT W/RIGHT HAND, LEFT FLACCID. ENCOURAGED HIM TO YELL OUT FOR ANY NEEDS AND HE DOES
--- NOTE | 2019-08-12 08:20 | NUR ---
SLEPT MOST OF SHIFT. WORKING ON GOALS AND PLAN OF CARE FOR NOC. TURNED FOR COMFORT AND SKIN CARE. INCONTINENT OF STOOL X2. MALE CATH IN PLACE FOR I&O. PROGRESSING SLOWLY TOWARDS DISCHARGE GOALS BACK TO [facility]. CONTINUE TO ASSES CLOSELY.
--- NOTE | 2019-08-12 09:50 | 2DMMODE ---
[facility] [place] [address] 2 D/M-MODE ECHOCARDIOGRAM Name: LUIS ARMANDO DAVIES Room #: 218-P ADM IN M.R.#: [id number] Admission: 08/09/19 Attend Phys: Yevgeniy Reed MD Discharge: Date of : 60 Report #: [id number] THIS REPORT FOR: cc: Carlos A Whitaker MD, Shyam MD Lundgren, Craig H. MD [facility] ~ APPROVED REPORT Study performed: 08/12/2019 08:32:51 EXAM: Comprehensive 2D, Doppler, and color-flow Echocardiogram Patient Location: Bedside Room #: 218 Status: routine BSA: 2.17 HR: 120 bpm BP: 147/100 mmHg Rhythm: Atrial Flutter/tachy Other Information Study Quality: Poor/no parasternal window. Technically limited study due to heavy breathing, no cooperation, limited mobility. Indications Permanent Aflutter. Pacemaker Hx: CVA, HTN, HLP, Peg tube. 2D Dimensions RVDd: 37.93 mm Volumes Left Atrial Volume (Systole) Single Plane 4CH: 59.59 mL Single Plane 2CH: 55.78 mL LA ESV Index: 30.00 mL/m2 Aortic Valve AoV Peak Miles.: 1.32 m/s AO Peak Gr.: 6.92 mmHg LVOT Max P.20 mmHg LVOT Max V: 0.89 m/s Mitral Valve MV Decel. Time: 67.12 ms MV E Max Miles.: 0.76 m/s [facility] [address] [place] [address] 2 D/M-MODE ECHOCARDIOGRAM Name: LUIS ARMANDO DAVIES Room #: 218-P ADM IN M.R.#: [id number] Admission: 08/09/19 Attend Phys: Yevgeniy Reed MD Discharge: Date of : 60 Report #: [id number] Pulmonary Valve PV Peak Miles.: 1.15 m/s PV Peak Gr.: 5.30 mmHg Tricuspid Valve RAP Estimate: 5.00 mmHg Left Ventricle The left ventricle is normal size. Mild concentric left ventricular hypertrophy. Left ventricular systolic function is normal. LVEF is 65%. Moderate intracavitary gradient (40 mmHg); probably related to the hyperdynamic left ventricle coupled with LVH. This study is not technically sufficient to allow evaluation of the LV diastolic function. Right Ventricle Right ventricle is not well visualized but appears grossly normal in size and function. Atria The left atrium size is normal. The right atrium size is normal. Aortic Valve The aortic valve is normal in structure. There is no aortic valvular stenosis. Mitral Valve The mitral valve is normal in structure. There is no mitral valve regurgitation noted. No evidence of mitral valve stenosis. Tricuspid Valve The tricuspid valve is normal in structure. There is no tricuspid valve regurgitation noted. Unable to assess PA pressure. Pulmonic Valve The pulmonary valve is normal in structure. There is no pulmonic valvular regurgitation. Great Vessels IVC is normal in size and collapses >50% with inspiration. Pericardium There is no pericardial effusion. [facility] [address] [place] [address] 2 D/M-MODE ECHOCARDIOGRAM Name: LUIS ARMANDO DAVIES Room #: 218-P ADM IN M.R.#: [id number] Admission: 08/09/19 Attend Phys: Yevgeniy Reed MD Discharge: Date of : 60 Report #: [id number] <Conclusion> Technically limited study Left ventricular systolic function is normal. Mild concentric left ventricular hypertrophy. LVEF is 65%. Moderate intracavitary gradient (40 mmHg); probably related to the hyperdynamic left ventricle coupled with LVH. The aortic valve is normal in structure. No stenosis or insufficiency The mitral valve is normal in structure. No mitral valve regurgitation Unable to assess pulmonary artery pressure. There is no pericardial effusion. <ELECTRONICALLY SIGNED> By: Kishan Joseph MD, FACC 08/12/19947 7 7 Kishan Joseph MD, FACC /INF
[2019-08-12 11:24] VITALS: BP 153/105
--- NOTE | 2019-08-12 11:51 | NUR ---
CONFUSION ON PT'S DIET/MED ADM. COMM W/PHYSICIAN RE: ADM VIA PEG OR PO. PT TOLERATED APPLESAUCE AND THICKENED LIQ. SPEECH CAME BY AND SAID REGULAR DIET, REGULAR LIQUIDS. WILL ENTER ORDER. PHYSICIAN SAID IF PT IS EATING TO CALL FACIITY TO SEE IF HE CAN BE ACCEPTED TODAY, WILL DO SO WHEN ABLE.
--- NOTE | 2019-08-12 12:43 | NUR ---
CALLED FACILITY TO SEE IF THEY ARE ABLE TO RECEIVE PT BACK TODAY PER DR. RIVERA (IF PT IS ABLE TO EAT), STILL NO ANSWER, WILL CONTINUE TRYING ABLE
[2019-08-12 16:04] VITALS: BP 143/103
--- NOTE | 2019-08-12 16:49 | NUR ---
REPORT GIVEN TO SILVERIO LEON ON 4S. WILL TRANSFER PT IN BED WITH ALL SUPPLIES/BELONGINGS HOPEFULLY BEFORE DINNER
--- NOTE | 2019-08-12 18:16 | NUR ---
Pt transferred from approx 1730. Vital signs stable. Pt eating dinner. No c/o at this time.
[2019-08-12 19:30] VITALS: BP 145/97
[2019-08-13 03:50] VITALS: BP 123/89
--- NOTE | 2019-08-13 05:06 | NUR ---
ASSESSMENT COMPLETED. PT IS ALERT TO SELF. APHASIC.SWALOWED MEDS OKAY. Q2 HR TURN, LEFT SIDED WEAKNESS. PT HAS A CONDOM CATHETER, BUT IT WOULD NOT STAY WELL IN PLACE, SO SOME INCONTINENCE NOTED IN ANNABELLE. PT CONTINUES ON IV FLUIDS. NO EDEMA. NO SOA . VSS.HR STABLE.WILL CONTINUE WITH POC TILL EOS.
[2019-08-13 07:16] VITALS: BP 133/89
[2019-08-13 09:02] VITALS: BP 133/89
[2019-08-13] MEDS ORDERED: LEVAQUIN 500 M500 M5 PO (11:38)
--- NOTE | 2019-08-13 13:30 | NUR ---
Assumed care of pt at 0700. Pt a&o. Q2h turn. Inconitinent. Setup for meals. PEG tube clamped. Able to tolerate regular diet well. Provider states pt needs to discharge back to facility today. Report given to RN. Transportation scheduled with non-emergent ambulance. Left sided weakness. Call light within reach. Fall precautions in place.
== END 2019-08-13 15:00 | DRG 388 ==
LOC: ER 14:41 → EROBS 16:39 → 2N 16:39 → EROBS 19:01 → 2N 19:32 → 4S 08-12 17:35
PROVIDERS: Nurse Practitioner; Physician Assistant; ADMIT Hospitalist
DX: K56.600 Partial intestinal obstruction, unspecified as to cause (principal); N17.0 Acute kidney failure with tubular necrosis; K92.0 Hematemesis; N17.9 Acute kidney failure, unspecified; I48.92 Unspecified atrial flutter; I69.354 Hemiplegia and hemiparesis following cerebral infarction affecting left non-dominant side; K56.7 Ileus, unspecified; N18.9 Chronic kidney disease, unspecified; I48.91 Unspecified atrial fibrillation; E78.5 Hyperlipidemia, unspecified; I12.9 Hypertensive chronic kidney disease with stage 1 through stage 4 chronic kidney disease, or unspecified chronic kidney disease; E11.42 Type 2 diabetes mellitus with diabetic polyneuropathy; E11.22 Type 2 diabetes mellitus with diabetic chronic kidney disease; F32.9 Major depressive disorder, single episode, unspecified; E87.6 Hypokalemia; F17.210 Nicotine dependence, cigarettes, uncomplicated; G40.909 Epilepsy, unspecified, not intractable, without status epilepticus; Z79.82 Long term (current) use of aspirin; Z79.899 Other long term (current) drug therapy; Z93.1 Gastrostomy status; I69.391 Dysphagia following cerebral infarction; R13.10 Dysphagia, unspecified
CPT/HCPCS: 10081; 10102